=== PATIENT | male | born 1965 | race African-American/Black ===

== ENCOUNTER 2016-12-08 10:19 | Inpatient (IN) | payer OTHER ==
[2016-12-08 10:51] VITALS: BMI 29.5
--- NOTE | 2016-12-08 13:36 | HP ---
COWS - Scale Resting Pulse: 0= [place] 80 or Below Sweatin=Flushed/Facial Moisture Restless Observation: 1= Difficult to Sit Still Pupil Size: 0= Normal to Room Light Bone or Joint Aches: 2= Severe Diffuse Aches Runny Nose/ Eye Tearin= Runny Nose/Eyes GI Upset > 30mins: 2= Nausea/Diarrhea Tremor Observation: 2= Slight Tremor Visible Yawning Observation: 2= >3x During Session Anxiety or Irritability: 2=Irritable/Anxious Goose Flesh Skin: 3=Piloerection COWS Score: 18 Admission ROS S - HPI Chief Complaint: I am here to detox. Allergies/Adverse Reactions: Allergies Allergy/AdvReac Type Severity Reaction Status Date / Time No Known Allergies Allergy Verified 12/08/16 13:17 History of Present Illness: pt is a 50yr old male with a history of heroin dependence seeking detox for treatment. Exam Limitations: No Limitations - Ebola screening Have you traveled outside of the country in the last 21 days: No Have you had contact with anyone from an Ebola affected area: No Have you been sick,other than usual withdrawal symptoms: No Do you have a fever: No - Review of Systems Constitutional: Chills, Diaphoresis, Loss of Appetite, Night Sweats, Changes in sleep, Unintentional Wgt. Loss EENT: reports: Nose Congestion Respiratory: reports: No Symptoms reported, Cough Cardiac: reports: No Symptoms Reported GI: reports: Poor Appetite, Poor Fluid Intake : reports: No Symptoms Reported Musculoskeletal: reports: Back Pain, Muscle Pain Integumentary: reports: Flushing, Sweating Neuro: reports: Headache, Tingling, Tremors Endocrine: reports: Excessive Sweating, Flushing, Intolerance to Cold, Intolerance to Heat Hematology: reports: No Symptoms Reported Psychiatric: reports: Judgement Intact, Mood/Affect Appropiate, Orientated x3, Agitated, Anxious Other Systems: Reviewed and Negative Patient History - Patient Medical History Hx Anemia: No Hx Asthma: No Hx Chronic Obstructive Pulmonary Disease (COPD): No Hx Cancer: No Hx Cardiac Disorders: No Hx Congestive Heart Failure: No Hx Hypertension: Yes Hx Hypercholesterolemia: No Hx Pacemaker: No HX Cerebrovascular Accident: No Hx Seizures: No Hx Dementia: No Hx Diabetes: No Hx Gastrointestinal Disorders: No Hx Liver Disease: No Hx Genitourinary Disorders: No Hx Sexually Transmitted Disorders: No Hx Renal Disease (ESRD): No Hx Thyroid Disease: No Hx Human Immunodeficiency Virus (HIV): No (NEGATIVE HX) Hx Hepatitis C: No (negative) Hx Depression: No Hx Suicide Attempt: No (denies) Hx Bipolar Disorder: No Hx Schizophrenia: No - Patient Surgical History Past Surgical History: No Anesthesia Reaction: No - PPD History Previous Implant?: Yes Documented Results: Negative w/o proof Date: 10/17/14 PPD to be Administered?: Yes - Reproductive History Patient is a Female of Child Bearing Age (11 -55 yrs old): No - Smoking Cessation Smoking history: Current every day smoker Have you smoked in the past 12 months: Yes Aproximately how many cigarettes per day: 10 Hx Chewing Tobacco Use: No Initiated information on smoking cessation: Yes 'Breaking Loose' booklet given: 12/08/16 - Substance & Tx. History Hx Alcohol Use: No Hx Substance Use: Yes Substance Use Type: Cocaine, Heroin Hx Substance Use Treatment: Yes - Substances Abused Heroin Route: Inhalation Frequency: Daily Amount used: 6 BAGS Age of first use: 33 Date of Last Use: 12/07/16 Cocaine Route: Inhalation Frequency: Daily Amount used: 1-2 GRAMS Age of first use: 17 Date of Last Use: 12/07/16 PCP Route: Smoking Frequency: 1-3 times last 30 days Amount used: 2 BAGS Age of first use: 17 Date of Last Use: 12/01/16 Family Disease History - Family Disease History Family History: Denies Admission Physical Exam BHS - Vital Signs Vital Signs: Vital Signs - 24 hr 12/08/16 10:49 Temperature 97 F L Pulse Rate 80 Respiratory 20 Rate Blood Pressure 156/108 - Physical General Appearance: Yes: Appropriately Dressed, Moderate Distress, Tremorous, Irritable, Sweating, Anxious HEENTM: Yes: Normal Voice, Rhinorrhea Respiratory: Yes: Lungs Clear, Normal Breath Sounds, No Respiratory Distress Neck: Yes: No masses,lesions,Nodules Breast: Yes: Within Normal Limits Cardiology: Yes: Regular Rhythm, Regular Rate, S1, S2, Tachycardia Abdominal: Yes: Normal Bowel Sounds, Non Tender, Soft Genitourinary: Yes: Within Normal Limits Back: Yes: Normal Inspection Musculoskeletal: Yes: full range of Motion, Gait Steady Extremities: Yes: Normal Capillary Refill, Normal Inspection, Non-Tender, Tremors Neurological: Yes: Fully Oriented, Alert, Normal Response Integumentary: Yes: Normal Color, Diaphoresis Lymphatic: Yes: Within Normal Limits - Diagnostic (1) Opioid dependence with withdrawal Current Visit: Yes Status: Chronic (2) PCP dependence Current Visit: Yes Status: Chronic (3) Cocaine dependence Current Visit: Yes Status: Chronic Qualifiers: Substance use status: uncomplicated Qualified Code(s): F14.20 - Cocaine dependence, uncomplicated (4) HTN (hypertension) Current Visit: Yes Status: Chronic (5) Nicotine dependence Current Visit: Yes Status: Chronic Qualifiers: Nicotine product type: cigarettes Substance use status: uncomplicated Qualified Code(s): F17.210 - Nicotine dependence, cigarettes, uncomplicated Cleared for Admission S - Detox or Rehab [facility] Level of Care: Medically Managed Detox Regimen/Protocol: Methadone [facility] Breath Alcohol Content Breath Alcohol Content: 0 Urine Drug Screen - Results Drug Screen Negative: No Urine Drug Screen Results: SUSAN-Cocaine, OPI-Opiates, PCP-Phencyclidine, MDMA- Ecstasy
[2016-12-08] MEDS ORDERED: ACETAMINOPHEN 325 MG TABLET (FP) PO PRN (13:44)
[2016-12-08] MEDS ORDERED: MAGNESIUM CITRATE 300 ML BOTTLE PO PRN (13:44)
[2016-12-08] MEDS ORDERED: LOPERAMIDE HCL 2 MG CAPSULE PO PRN (13:44)
[2016-12-08] MEDS ORDERED: MAGNESIUM HYDROX 2400MG/30ML ORAL SUSPENSION 30 ML CUP PO PRN (13:44)
[2016-12-08] MEDS ORDERED: IBUPROFEN 400 MG TABLET (FP) PO PRN (13:44)
[2016-12-08] MEDS ORDERED: NICOTINE POLACRILEX 4 MG GUM BUC PRN (13:44)
[2016-12-08] MEDS ORDERED: guaiFENesin/D-METHORPHAN HB 10 ML UNIT-DOSE CUPS PO PRN (13:44)
[2016-12-08] MEDS ORDERED: P-EPHED 60MG/TRIPROLIDI 2.5MG TABLET PO PRN (13:44)
[2016-12-08] MEDS ORDERED: MENTHOL/PHENOL 1 EACH UD MM PRN (13:44)
[2016-12-08] MEDS ORDERED: cloNIDine HCL 0.1 MG TABLET PO ONE (14:38)
[2016-12-08] MEDS ORDERED: METHADONE HCL 10 MG TABLET (FOR DETOX USE ONLY) PO ONE ×2 (14:39→23:00)
[2016-12-08] MEDS: diazePAM 5 MG TABLET PO PRN (16:56)
[2016-12-08 20:16] LABS: URINE APPEARANCE CLEAR; URINE BILIRUBIN NEGATIVE (NEGATIVE); URINE BLOOD NEGATIVE (NEGATIVE); URINE COLOR YELLOW; URINE GLUCOSE (UA) NEGATIVE (NEGATIVE); URINE KETONE 1+ (NEGATIVE); URINE LEUK ESTERASE NEGATIVE (NEGATIVE); URINE NITRITE NEGATIVE (NEGATIVE); URINE PROTEIN NEGATIVE (NEGATIVE); URINE UROBILINOGEN NEGATIVE E.U./dl (0.2-1.0)
[2016-12-08] MEDS: THIAMINE HCL 100 MG TABLET (FP) PO SCH (22:07)
[2016-12-09] MEDS: diphenhydrAMINE HCL 50 MG CAPSULE PO PRN ×2 (00:40→22:24)
[2016-12-09] MEDS: diazePAM 5 MG TABLET PO PRN ×4 (05:49→21:44)
[2016-12-09] MEDS ORDERED: METHADONE HCL 10 MG TABLET (FOR DETOX USE ONLY) PO ONE (10:00)
[2016-12-09] MEDS: PRENATAL VITAMINS W/ FOLIC ACID TABLET (FP) PO SCH (10:42)
[2016-12-09] MEDS: NICOTINE 21 MG/24 HOURS TOPICAL PATCH TD SCH (10:43)
[2016-12-09 10:50] LABS: MCHC 32.9 g/dl (32.0-35.9); MEAN CELL VOLUME 91.1 fl (80-96); MEAN PLT VOLUME 8.7 fl (7.5-11.1); PLATELET COUNT 320 K/MM3 (134-434); RDW 13.6 % (11.9-15.9); WHITE BLOOD COUNT 8.7 K/mm3 (4.0-10.0)
[2016-12-09 10:56] LABS: ALBUMIN 4.4 g/dl (3.4-5.0); BILIRUBIN,TOTAL 0.5 mg/dL (0.2-1.0); CALCIUM 9.4 mg/dL (8.5-10.1); CREATININE 1.4 mg/dL (0.7-1.3); TOT PROT 7.4 g/dl (6.4-8.2)
--- NOTE | 2016-12-09 11:48 | PN ---
BHS COWS - Scale Resting Pulse: 1= [place] 81-100 Sweatin= Chills/Flushing Restless Observation: 1= Difficult to Sit Still Pupil Size: 1= Pupils >than Normal Bone or Joint Aches: 1= Mild Discomfort Runny Nose/ Eye Tearin= Nasal Congestion GI Upset > 30mins: 2= Nausea/Diarrhea Tremor Observation of Outstretched Hands: 2= Slight Tremor Visible Yawning Observation: 1= 1-2x During Session Anxiety or Irritability: 2=Irritable/Anxious Goose Flesh Skin: 3=Piloerection COWS Score: 16 BHS Progress Note (SOAP) Subjective: nausea, sweats, interrupted sleep, anxiety , tremor Objective: 12/09/16 11:47 Laboratory Tests 12/08/16 12/09/16 12/09/16 14:00 06:00 06:00 WBC 8.7 RBC 4.91 Hgb 14.7 D Hct 44.8 D MCV 91.1 MCHC 32.9 RDW 13.6 Plt Count 320 MPV 8.7 Sodium 140 Potassium 4.0 Chloride 104 Carbon Dioxide 27 Anion Gap 9 BUN 19 H Creatinine 1.4 H Creat Clearance w eGFR 53.86 Random Glucose 91 Calcium 9.4 Total Bilirubin 0.5 D AST 60 H D ALT 30 Alkaline Phosphatase 94 Total Protein 7.4 D Albumin 4.4 D Urine Color Yellow Urine Appearance Clear Urine pH 5.0 Ur Specific [place] 1.034 Urine Protein Negative Urine Glucose (UA) Negative Urine Ketones 1+ H Urine Blood Negative Urine Nitrite Negative Urine Bilirubin Negative Urine Urobilinogen Negative Ur Leukocyte Esterase Negative 12/09/16 11:47 Vital Signs - 24 hr 12/08/16 12/08/16 12/08/16 15:15 18:00 22:27 Temperature 97.7 F 97.9 F 96.8 F L Pulse Rate 91 H 83 87 Respiratory 18 16 18 Rate Blood Pressure 155/104 123/82 136/88 12/09/16 12/09/16 12/09/16 00:32 03:30 06:40 Temperature 96.7 F L Pulse Rate 80 Respiratory 18 18 18 Rate Blood Pressure 124/80 12/09/16 09:36 Temperature 97.1 F L Pulse Rate 85 Respiratory 20 Rate Blood Pressure 130/88 Assessment: 12/09/16 11:47 withdrawal sx Plan: cont deto
--- NOTE | 2016-12-09 19:15 | PN ---
BHS Progress Note Note: bp 174/93 amlodipine 5 mg x1 repeat bp in 2 hours arount 930 pm continue detox
[2016-12-09] MEDS: amLODIPine BESYLATE 5 MG TABLET (FP) PO SCH (19:27)
[2016-12-09] MEDS: hydrOXYzine PAMOATE 50 MG CAPSULE (FP) PO PRN (19:27)
--- NOTE | 2016-12-09 19:38 | PN ---
S Progress Note Note: received nurse call patient wants avmaluo soap
--- NOTE | 2016-12-09 19:38 | PN ---
BHS Progress Note Note: received nurse call patient wants to wear own shoes
--- NOTE | 2016-12-09 21:05 | PN ---
BHS Progress Note Note: received nurse call bp 149/100 continue detox
[2016-12-09] MEDS: THIAMINE HCL 100 MG TABLET (FP) PO SCH (23:04)
[2016-12-09] MEDS ORDERED: COLLOIDAL OATMEAL 1 BAR EACH TP PRN ×2 (23:11→23:12)
--- NOTE | 2016-12-09 23:23 | PN ---
BHS Progress Note Note: received nurse call bp 145/96 continue detox
[2016-12-10] MEDS: diphenhydrAMINE HCL 50 MG CAPSULE PO PRN ×2 (01:07→22:13)
[2016-12-10] MEDS: diazePAM 5 MG TABLET PO PRN ×4 (05:28→20:09)
[2016-12-10] MEDS ORDERED: METHADONE HCL 5 MG TABLET (FOR DETOX USE ONLY) PO ONE (10:00)
[2016-12-10] MEDS: PRENATAL VITAMINS W/ FOLIC ACID TABLET (FP) PO SCH (10:39)
[2016-12-10] MEDS: amLODIPine BESYLATE 5 MG TABLET (FP) PO SCH (10:39)
[2016-12-10] MEDS: NICOTINE 21 MG/24 HOURS TOPICAL PATCH TD SCH (10:39)
--- NOTE | 2016-12-10 13:11 | PN ---
S COWS - Scale Resting Pulse: 1= [place] 81-100 Sweatin= Chills/Flushing Restless Observation: 1= Difficult to Sit Still Pupil Size: 1= Pupils >than Normal Bone or Joint Aches: 1= Mild Discomfort Runny Nose/ Eye Tearin= Nasal Congestion GI Upset > 30mins: 2= Nausea/Diarrhea Tremor Observation of Outstretched Hands: 2= Slight Tremor Visible Yawning Observation: 1= 1-2x During Session Anxiety or Irritability: 2=Irritable/Anxious Goose Flesh Skin: 3=Piloerection COWS Score: 16 S Progress Note (SOAP) Subjective: nausea, sweats, interrupted sleep, anxiety, tremor Objective: 12/10/16 13:09 Vital Signs - 24 hr 12/09/16 12/09/16 12/09/16 14:13 17:33 22:48 Temperature 96.0 F L 98.2 F 97.9 F Pulse Rate 90 86 84 Respiratory 20 20 20 Rate Blood Pressure 137/93 157/92 145/96 12/10/16 12/10/16 12/10/16 00:43 03:48 06:39 Temperature 97.8 F Pulse Rate 92 H Respiratory 18 18 18 Rate Blood Pressure 149/91 12/10/16 10:20 Temperature 98.2 F Pulse Rate 87 Respiratory 20 Rate Blood Pressure 151/99 Laboratory Tests 12/08/16 12/09/16 12/09/16 14:00 06:00 06:00 WBC 8.7 RBC 4.91 Hgb 14.7 D Hct 44.8 D MCV 91.1 MCHC 32.9 RDW 13.6 Plt Count 320 MPV 8.7 Sodium 140 Potassium 4.0 Chloride 104 Carbon Dioxide 27 Anion Gap 9 BUN 19 H Creatinine 1.4 H Creat Clearance w eGFR 53.86 Random Glucose 91 Calcium 9.4 Total Bilirubin 0.5 D AST 60 H D ALT 30 Alkaline Phosphatase 94 Total Protein 7.4 D Albumin 4.4 D Urine Color Yellow Urine Appearance Clear Urine pH 5.0 Ur Specific [place] 1.034 Urine Protein Negative Urine Glucose (UA) Negative Urine Ketones 1+ H Urine Blood Negative Urine Nitrite Negative Urine Bilirubin Negative Urine Urobilinogen Negative Ur Leukocyte Esterase Negative RPR Titer 12/09/16 06:00 WBC RBC Hgb Hct MCV MCHC RDW Plt Count MPV Sodium Potassium Chloride Carbon Dioxide Anion Gap BUN Creatinine Creat Clearance w eGFR Random Glucose Calcium Total Bilirubin AST ALT Alkaline Phosphatase Total Protein Albumin Urine Color Urine Appearance Urine pH Ur Specific [place] Urine Protein Urine Glucose (UA) Urine Ketones Urine Blood Urine Nitrite Urine Bilirubin Urine Urobilinogen Ur Leukocyte Esterase RPR Titer Nonreactive Assessment: 12/10/16 13:10 withdrawal sx Plan: cont detox
--- NOTE | 2016-12-10 14:29 | EKG ---
Test Reason : Blood Pressure : / mmHG Vent. Rate : 085 BPM Atrial Rate : 085 BPM P-R Int : 164 ms QRS Dur : 086 ms QT Int : 304 ms P-R-T Axes : 080 073 046 degrees QTc Int : 361 ms NORMAL SINUS RHYTHM NONSPECIFIC T WAVE ABNORMALITY ABNORMAL ECG NO PREVIOUS ECGS AVAILABLE Confirmed by FAITH MONSALVE, NETTIE ([id number]) on 12/10/2016 2:29:12 PM Referred By: Confirmed By:NETTIE CUEVAS MD
[2016-12-10] MEDS: hydrOXYzine PAMOATE 50 MG CAPSULE (FP) PO PRN (18:51)
[2016-12-10] MEDS: cloNIDine HCL 0.1 MG TABLET PO SCH (22:13)
[2016-12-10] MEDS: THIAMINE HCL 100 MG TABLET (FP) PO SCH (22:13)
[2016-12-11] MEDS: diazePAM 5 MG TABLET PO PRN ×2 (05:23→10:42)
--- NOTE | 2016-12-11 09:06 | PN ---
BHS Progress Note (SOAP) Subjective: c/o cold sore left side of mouth crease painful, nause, sweats, interrupted sleep, anxiety, trmeors Objective: 12/11/16 09:03 Vital Signs - 8 hr 12/11/16 12/11/16 03:30 06:36 Temperature 97.7 F Pulse Rate 76 Respiratory 18 18 Rate Blood Pressure 137/85 Laboratory Tests 12/08/16 12/09/16 12/09/16 14:00 06:00 06:00 WBC 8.7 RBC 4.91 Hgb 14.7 D Hct 44.8 D MCV 91.1 MCHC 32.9 RDW 13.6 Plt Count 320 MPV 8.7 Sodium 140 Potassium 4.0 Chloride 104 Carbon Dioxide 27 Anion Gap 9 BUN 19 H Creatinine 1.4 H Creat Clearance w eGFR 53.86 Random Glucose 91 Calcium 9.4 Total Bilirubin 0.5 D AST 60 H D ALT 30 Alkaline Phosphatase 94 Total Protein 7.4 D Albumin 4.4 D Urine Color Yellow Urine Appearance Clear Urine pH 5.0 Ur Specific [place] 1.034 Urine Protein Negative Urine Glucose (UA) Negative Urine Ketones 1+ H Urine Blood Negative Urine Nitrite Negative Urine Bilirubin Negative Urine Urobilinogen Negative Ur Leukocyte Esterase Negative RPR Titer 12/09/16 06:00 WBC RBC Hgb Hct MCV MCHC RDW Plt Count MPV Sodium Potassium Chloride Carbon Dioxide Anion Gap BUN Creatinine Creat Clearance w eGFR Random Glucose Calcium Total Bilirubin AST ALT Alkaline Phosphatase Total Protein Albumin Urine Color Urine Appearance Urine pH Ur Specific [place] Urine Protein Urine Glucose (UA) Urine Ketones Urine Blood Urine Nitrite Urine Bilirubin Urine Urobilinogen Ur Leukocyte Esterase RPR Titer Nonreactive elevated bun and creatinine Assessment: 12/11/16 09:03 withdrawal sx, CHANDAN 2/2 dehydrtion and substance use, cold sore herpes Plan: cont detox, topical lidocaine, encourage fluids, ambulation
[2016-12-11] MEDS ORDERED: METHADONE HCL 5 MG TABLET (FOR DETOX USE ONLY) PO ONE (10:00)
[2016-12-11] MEDS: amLODIPine BESYLATE 5 MG TABLET (FP) PO SCH (10:40)
[2016-12-11] MEDS: cloNIDine HCL 0.1 MG TABLET PO SCH ×2 (10:40→22:10)
[2016-12-11] MEDS: PRENATAL VITAMINS W/ FOLIC ACID TABLET (FP) PO SCH (10:40)
[2016-12-11] MEDS: NICOTINE 21 MG/24 HOURS TOPICAL PATCH TD SCH (11:07)
[2016-12-11] MEDS: LIDOCAINE HCL 5% TOP OINTMENT 50 GM TUBE TP SCH ×2 (13:55→23:17)
[2016-12-11] MEDS: hydrOXYzine PAMOATE 50 MG CAPSULE (FP) PO PRN ×2 (14:13→18:26)
[2016-12-11] MEDS: VITAMINS A AND D TOPICAL OINTMENT 60 GM TUBE TP SCH ×2 (17:15→23:18)
[2016-12-11] MEDS: MAG HYDROX/AL HYDROX/SIMETH 30 ML UNIT-DOSE CUP PO PRN (21:06)
[2016-12-11] MEDS: diphenhydrAMINE HCL 50 MG CAPSULE PO PRN (22:10)
[2016-12-11] MEDS: THIAMINE HCL 100 MG TABLET (FP) PO SCH (22:10)
[2016-12-12] MEDS: hydrOXYzine PAMOATE 50 MG CAPSULE (FP) PO PRN ×3 (03:01→17:17)
[2016-12-12] MEDS: VITAMINS A AND D TOPICAL OINTMENT 60 GM TUBE TP SCH ×4 (07:33→23:00)
[2016-12-12] MEDS ORDERED: METHADONE HCL 10 MG TABLET (FOR DETOX USE ONLY) PO ONE (10:00)
[2016-12-12] MEDS: cloNIDine HCL 0.1 MG TABLET PO SCH ×2 (10:34→22:32)
[2016-12-12] MEDS: amLODIPine BESYLATE 5 MG TABLET (FP) PO SCH (10:34)
[2016-12-12] MEDS: PRENATAL VITAMINS W/ FOLIC ACID TABLET (FP) PO SCH (10:34)
[2016-12-12] MEDS: NICOTINE 21 MG/24 HOURS TOPICAL PATCH TD SCH (10:35)
[2016-12-12] MEDS: LIDOCAINE HCL 5% TOP OINTMENT 50 GM TUBE TP SCH ×2 (10:35→22:48)
--- NOTE | 2016-12-12 12:12 | PN ---
BHS Progress Note (SOAP) Subjective: SWEATING,INTERRUPTED SLEEP,RESTLESS Objective: 12/12/16 12:11 Vital Signs - 8 hr 12/12/16 12/12/16 06:20 10:49 Temperature 98.7 F 96.1 F L Pulse Rate 81 80 Respiratory 18 18 Rate Blood Pressure 127/85 131/85 Laboratory Last Values WBC 8.7 K/mm3 (4.0-10.0) 12/09/16 06:00 RBC 4.91 M/mm3 (4.00-5.60) 12/09/16 06:00 Hgb 14.7 GM/dL (11.7-16.9) D 12/09/16 06:00 Hct 44.8 % (35.4-49) D 12/09/16 06:00 MCV 91.1 fl (80-96) 12/09/16 06:00 MCHC 32.9 g/dl (32.0-35.9) 12/09/16 06:00 RDW 13.6 % (11.9-15.9) 12/09/16 06:00 Plt Count 320 K/MM3 (134-434) 12/09/16 06:00 MPV 8.7 fl (7.5-11.1) 12/09/16 06:00 Sodium 140 mmol/L (136-145) 12/09/16 06:00 Potassium 4.0 mmol/L (3.5-5.1) 12/09/16 06:00 Chloride 104 mmol/L (98-107) 12/09/16 06:00 Carbon Dioxide 27 mmol/L (21-32) 12/09/16 06:00 Anion Gap 9 (8-16) 12/09/16 06:00 BUN 19 mg/dL (7-18) H 12/09/16 06:00 Creatinine 1.4 mg/dL (0.7-1.3) H 12/09/16 06:00 Creat Clearance w eGFR 53.86 (>60) 12/09/16 06:00 Random Glucose 91 mg/dL (74-106) 12/09/16 06:00 Calcium 9.4 mg/dL (8.5-10.1) 12/09/16 06:00 Total Bilirubin 0.5 mg/dL (0.2-1.0) D 12/09/16 06:00 AST 60 U/L (15-37) H D 12/09/16 06:00 ALT 30 U/L (12-78) 12/09/16 06:00 Alkaline Phosphatase 94 U/L (45-117) 12/09/16 06:00 Total Protein 7.4 g/dl (6.4-8.2) D 12/09/16 06:00 Albumin 4.4 g/dl (3.4-5.0) D 12/09/16 06:00 Urine Color Yellow 12/08/16 14:00 Urine Appearance Clear 12/08/16 14:00 Urine pH 5.0 (5.0-8.0) 12/08/16 14:00 Ur Specific [place] 1.034 (1.001-1.035) 12/08/16 14:00 Urine Protein Negative (NEGATIVE) 12/08/16 14:00 Urine Glucose (UA) Negative (NEGATIVE) 12/08/16 14:00 Urine Ketones 1+ (NEGATIVE) H 12/08/16 14:00 Urine Blood Negative (NEGATIVE) 12/08/16 14:00 Urine Nitrite Negative (NEGATIVE) 12/08/16 14:00 Urine Bilirubin Negative (NEGATIVE) 12/08/16 14:00 Urine Urobilinogen Negative E.U./dl (0.2-1.0) 12/08/16 14:00 Ur Leukocyte Esterase Negative (NEGATIVE) 12/08/16 14:00 RPR Titer Nonreactive (NONREACTIVE) 12/09/16 06:00 LABS NOTED Assessment: 12/12/16 12:11 WITHDRAWAL SX. Plan: CONTINUE DETOX
[2016-12-12] MEDS: MAG HYDROX/AL HYDROX/SIMETH 30 ML UNIT-DOSE CUP PO PRN (14:38)
[2016-12-12] MEDS ORDERED: PANTOPRAZOLE 40 MG TABLET (FP) PO SCH (18:00)
[2016-12-12] MEDS: THIAMINE HCL 100 MG TABLET (FP) PO SCH (22:32)
[2016-12-12] MEDS: diphenhydrAMINE HCL 50 MG CAPSULE PO PRN (22:32)
[2016-12-13] MEDS ORDERED: METHADONE HCL 5 MG TABLET (FOR DETOX USE ONLY) PO ONE (06:00)
[2016-12-13 06:25] VITALS: BP 144/88; PULSE 81; TEMP 98.7
--- NOTE | 2016-12-13 10:42 | DS ---
[facility] Detox Discharge Summary Admission Date: 12/08/16 Discharge Date: 12/13/16 - History Present History: Cocaine Dependence, Opioid Dependence Pertinent Past History: HTN - Physical Exam Results Vital Signs: Vital Signs Temperature 98.7 F 12/13/16 06:25 Pulse Rate 81 12/13/16 06:25 Respiratory Rate 18 12/13/16 06:25 Blood Pressure 144/88 12/13/16 06:25 O2 Sat by Pulse Oximetry (%) Pertinent Admission Physical Exam Findings: Withdrawal symptoms Laboratory Tests 12/08/16 12/09/16 12/09/16 14:00 06:00 06:00 WBC 8.7 RBC 4.91 Hgb 14.7 D Hct 44.8 D MCV 91.1 MCHC 32.9 RDW 13.6 Plt Count 320 MPV 8.7 Sodium 140 Potassium 4.0 Chloride 104 Carbon Dioxide 27 Anion Gap 9 BUN 19 H Creatinine 1.4 H Creat Clearance w eGFR 53.86 Random Glucose 91 Calcium 9.4 Total Bilirubin 0.5 D AST 60 H D ALT 30 Alkaline Phosphatase 94 Total Protein 7.4 D Albumin 4.4 D Urine Color Yellow Urine Appearance Clear Urine pH 5.0 Ur Specific [place] 1.034 Urine Protein Negative Urine Glucose (UA) Negative Urine Ketones 1+ H Urine Blood Negative Urine Nitrite Negative Urine Bilirubin Negative Urine Urobilinogen Negative Ur Leukocyte Esterase Negative RPR Titer 12/09/16 06:00 WBC RBC Hgb Hct MCV MCHC RDW Plt Count MPV Sodium Potassium Chloride Carbon Dioxide Anion Gap BUN Creatinine Creat Clearance w eGFR Random Glucose Calcium Total Bilirubin AST ALT Alkaline Phosphatase Total Protein Albumin Urine Color Urine Appearance Urine pH Ur Specific [place] Urine Protein Urine Glucose (UA) Urine Ketones Urine Blood Urine Nitrite Urine Bilirubin Urine Urobilinogen Ur Leukocyte Esterase RPR Titer Nonreactive Labs noted - Treatment Hospital Course: Detox Protocol Followed, Detoxed Safely, Responded well, Discharged Condition Good - Medication Discharge Medications: Ambulatory Orders NK [No Known Home Medication] 12/09/16 - Diagnosis (1) HTN (hypertension) Status: Chronic Qualifiers: Hypertension type: essential hypertension Qualified Code(s): I10 - Essential (primary) hypertension (2) Cocaine dependence Status: Chronic Qualifiers: Substance use status: uncomplicated Qualified Code(s): F14.20 - Cocaine dependence, uncomplicated (3) Nicotine dependence Status: Chronic Qualifiers: Nicotine product type: cigarettes Substance use status: uncomplicated Qualified Code(s): F17.210 - Nicotine dependence, cigarettes, uncomplicated (4) Opioid dependence with withdrawal Status: Acute - AMA Did Patient Leave Against Medical Advice: No
== END 2016-12-13 08:31 | disposition home or self-care (01) | DRG 773 ==
LOC: YASAS 10:19 → Y3N 14:36
PROVIDERS: ADMIT Internal Medicine; ATTEND Internal Medicine
PROC: HZ2ZZZZ Detoxification Services for Substance Abuse Treatment (ICD-10-PCS; principal; 2016-12-08)
DX: F11.23 Opioid dependence with withdrawal (principal); F14.20 Cocaine dependence, uncomplicated; F16.20 Hallucinogen dependence, uncomplicated; F17.210 Nicotine dependence, cigarettes, uncomplicated; I10 Essential (primary) hypertension; E86.0 Dehydration; R79.89 Other specified abnormal findings of blood chemistry; R00.0 Tachycardia, unspecified; B00.1 Herpesviral vesicular dermatitis
CPT/HCPCS: 36415; 80053; 81003; 85027; 86593; 93005; 93010

== ENCOUNTER 2017-01-21 12:45 | Inpatient (IN) | payer OTHER ==
[2017-01-21 15:02] VITALS: BMI 27.7
--- NOTE | 2017-01-21 16:52 | HP ---
COWS - Scale Resting Pulse: 1= [place] 81-100 Sweatin= Chills/Flushing Restless Observation: 1= Difficult to Sit Still Pupil Size: 1= Pupils >than Normal Bone or Joint Aches: 2= Severe Diffuse Aches Runny Nose/ Eye Tearin= Nasal Congestion GI Upset > 30mins: 2= Nausea/Diarrhea Tremor Observation: 1= Tremor [place], Not Seen Yawning Observation: 0= None Anxiety or Irritability: 2=Irritable/Anxious Goose Flesh Skin: 3=Piloerection COWS Score: 15 CIWA Score - CIWA Score Nausea/Vomitin-Mild Nausea/No Vomiting Muscle Tremors: 4-Moderate,w/Arms Extend Anxiety: 4-Mod. Anxious/Guarded Agitation: 4-Moderately Restless Paroxysmal Sweats: 1-Minimal Palms Moist Orientation: 1-Uncertain about Date Tacttile Disturbances: 0-None Auditory Disturbances: 0-None Visual Disturbances: 0-None Headache: 3-Moderate CIWA-Ar Total Score: 18 Admission ROS S - HPI Chief Complaint: withdrawal sx Allergies/Adverse Reactions: Allergies Allergy/AdvReac Type Severity Reaction Status Date / Time No Known Allergies Allergy Verified 01/21/17 16:49 History of Present Illness: 51 years old male with long history of alcohol, heroin, nicotine dependence has hypertension - none compliance with medication, do not know the name of the medication, denies mental illness is admitted to detox Exam Limitations: No Limitations - Ebola screening Have you traveled outside of the country in the last 21 days: No Have you had contact with anyone from an Ebola affected area: No Have you been sick,other than usual withdrawal symptoms: No Do you have a fever: No - Review of Systems Constitutional: Chills, Loss of Appetite, Changes in sleep, Unintentional Wgt. Loss, Unexplained wgt Loss EENT: reports: No Symptoms Reported Respiratory: reports: No Symptoms reported Cardiac: reports: No Symptoms Reported GI: reports: Diarrhea, Nausea, Poor Appetite, Poor Fluid Intake, Abdominal cramping : reports: No Symptoms Reported Musculoskeletal: reports: Back Pain, Joint Pain, Muscle Pain, Neck Pain Integumentary: reports: No Symptoms Reported Neuro: reports: Tremors Endocrine: reports: No Symptoms Reported Hematology: reports: No Symptoms Reported Psychiatric: reports: Judgement Intact, Mood/Affect Appropiate Other Systems: Reviewed and Negative Patient History - Patient Medical History Hx Anemia: No Hx Asthma: No Hx Chronic Obstructive Pulmonary Disease (COPD): No Hx Cancer: No Hx Cardiac Disorders: No Hx Congestive Heart Failure: No Hx Hypertension: Yes Hx Hypercholesterolemia: No Hx Pacemaker: No HX Cerebrovascular Accident: No Hx Seizures: No Hx Dementia: No Hx Diabetes: No Hx Gastrointestinal Disorders: No Hx Liver Disease: No Hx Genitourinary Disorders: No Hx Sexually Transmitted Disorders: No Hx Renal Disease (ESRD): No Hx Thyroid Disease: No Hx Human Immunodeficiency Virus (HIV): No (NEGATIVE HX) Hx Hepatitis C: No (negative) Hx Depression: No Hx Suicide Attempt: No (denies) Hx Bipolar Disorder: No Hx Schizophrenia: No - Patient Surgical History Past Surgical History: No Anesthesia Reaction: No - PPD History Previous Implant?: Yes Documented Results: Negative w/proof Implanted On Prior [facility] Admission?: Yes Date: 12/10/16 PPD to be Administered?: No - Smoking Cessation Smoking history: Current every day smoker Have you smoked in the past 12 months: Yes Aproximately how many cigarettes per day: 10 Cigars Per Day: 0 Hx Chewing Tobacco Use: No Initiated information on smoking cessation: Yes 'Breaking Loose' booklet given: 01/21/17 - Substance & Tx. History Hx Alcohol Use: Yes Hx Substance Use: Yes Substance Use Type: Alcohol, Cocaine, Heroin, Marijuana Hx Substance Use Treatment: Yes Family Disease History - Family Disease History Family Disease History: Heart Disease: Mother (), CA: Father () Admission Physical Exam BHS - Vital Signs Vital Signs: Vital Signs - 24 hr 01/21/17 15:01 Temperature 97.7 F Pulse Rate 83 Respiratory 18 Rate Blood Pressure 161/85 - Physical General Appearance: Yes: Appropriately Dressed, Moderate Distress, Thin, Tremorous, Irritable, Sweating, Anxious HEENTM: Yes: Hearing grossly Normal, Normal ENT Inspection, Normocephalic, Normal Voice Respiratory: Yes: Chest Non-Tender, No Respiratory Distress, No Accessory Muscle Use, Hyperresonant, Inspiration (right lower lob) Neck: Yes: Supple, Trachea in good position Breast: Yes: Breasts Symetrical Cardiology: Yes: Regular Rhythm, Regular Rate, S1, S2 Abdominal: Yes: Non Tender, Soft, Increased Bowel Sounds Genitourinary: Yes: Within Normal Limits Back: Yes: Normal Inspection Musculoskeletal: Yes: full range of Motion, Gait Steady, Back pain, Muscle Pain Extremities: Yes: Normal Range of Motion, Non-Tender, Tremors Neurological: Yes: Alert, Motor Strength 5/5, Normal Mood/Affect, Normal Response Integumentary: Yes: Warm Lymphatic: Yes: Within Normal Limits - Diagnostic (1) Opioid dependence with withdrawal Current Visit: Yes Status: Acute (2) HTN (hypertension) Current Visit: Yes Status: Acute Qualifiers: Hypertension type: essential hypertension Qualified Code(s): I10 - Essential (primary) hypertension Comment: begin amlodipine 5 mg now and daily clonidine 0.1 mg prn q6h (3) Nicotine dependence Current Visit: Yes Status: Acute Qualifiers: Nicotine product type: cigarettes Substance use status: in withdrawal Qualified Code(s): F17.213 - Nicotine dependence, cigarettes, with withdrawal (4) Cocaine dependence, uncomplicated Current Visit: Yes Status: Chronic (5) Cannabis dependence, uncomplicated Current Visit: Yes Status: Chronic Cleared for Admission S - Detox or Rehab [facility] Level of Care: Medically Managed Detox Regimen/Protocol: Methadone/Librium S Breath Alcohol Content Breath Alcohol Content: 0 Vital Signs - Vital Signs Vital Signs Refused: No Temperature: 97.7 F Temperature Source: Oral Pulse Rate: 83 Respiratory Rate: 18 Blood Pressure: 161/85 BP Location: Left Arm Blood Pressure Position: Sitting - Height Height: 5 ft 9 in - Weight Weight: 188 lb Weight Measurement Method: Standing Scale Body Mass Index (BMI): 27.7 - Bowel Function Bowel Movement: Yes Urine Drug Screen - Control Is Test Valid: Yes - Results Drug Screen Negative: No Urine Drug Screen Results: THC-Marijuana, SUSAN-Cocaine, OPI-Opiates
[2017-01-21] MEDS ORDERED: NICOTINE POLACRILEX 2 MG GUM BC PRN (17:01)
[2017-01-21] MEDS ORDERED: MENTHOL/PHENOL 1 EACH UD MM PRN (17:01)
[2017-01-21] MEDS ORDERED: ACETAMINOPHEN 325 MG TABLET (FP) PO PRN (17:01)
[2017-01-21] MEDS ORDERED: MAG HYDROX/AL HYDROX/SIMETH 30 ML UNIT-DOSE CUP PO PRN (17:01)
[2017-01-21] MEDS ORDERED: IBUPROFEN 400 MG TABLET (FP) PO PRN (17:01)
[2017-01-21] MEDS ORDERED: guaiFENesin/D-METHORPHAN HB 10 ML UNIT-DOSE CUPS PO PRN (17:01)
[2017-01-21] MEDS ORDERED: MAGNESIUM HYDROX 2400MG/30ML ORAL SUSPENSION 30 ML CUP PO PRN (17:01)
[2017-01-21] MEDS ORDERED: P-EPHED 60MG/TRIPROLIDI 2.5MG TABLET PO PRN (17:01)
[2017-01-21] MEDS ORDERED: LOPERAMIDE HCL 2 MG CAPSULE PO PRN (17:01)
[2017-01-21] MEDS ORDERED: chlordiazePOXIDE HCL 25 MG CAPSULE PO PRN (17:01)
[2017-01-21] MEDS ORDERED: MAGNESIUM CITRATE 300 ML BOTTLE PO PRN (17:01)
[2017-01-21] MEDS ORDERED: METHADONE HCL 10 MG TABLET (FOR DETOX USE ONLY) PO ONE ×2 (18:15→23:00)
[2017-01-21] MEDS ORDERED: chlordiazePOXIDE HCL 25 MG CAPSULE PO ONE (18:15)
[2017-01-21] MEDS: amLODIPine BESYLATE 5 MG TABLET (FP) PO SCH (18:27)
[2017-01-21] MEDS: cloNIDine HCL 0.1 MG TABLET PO PRN (22:23)
[2017-01-21] MEDS: diphenhydrAMINE HCL 50 MG CAPSULE PO PRN (22:23)
[2017-01-21] MEDS: THIAMINE HCL 100 MG TABLET (FP) PO SCH (22:23)
[2017-01-21] MEDS: chlordiazePOXIDE HCL 25 MG CAPSULE PO SCH (22:24)
[2017-01-22 04:04] LABS: URINE APPEARANCE CLEAR; URINE BILIRUBIN NEGATIVE (NEGATIVE); URINE BLOOD NEGATIVE (NEGATIVE); URINE COLOR YELLOW; URINE GLUCOSE (UA) NEGATIVE (NEGATIVE); URINE KETONE NEGATIVE (NEGATIVE); URINE LEUK ESTERASE NEGATIVE (NEGATIVE); URINE NITRITE NEGATIVE (NEGATIVE); URINE PROTEIN NEGATIVE (NEGATIVE); URINE UROBILINOGEN NEGATIVE E.U./dl (0.2-1.0)
[2017-01-22] MEDS: chlordiazePOXIDE HCL 25 MG CAPSULE PO SCH ×4 (05:57→22:55)
[2017-01-22] MEDS ORDERED: METHADONE HCL 10 MG TABLET (FOR DETOX USE ONLY) PO SCH (10:00)
[2017-01-22] MEDS ORDERED: NICOTINE 14 MG/24 HOURS TOPICAL PATCH TD SCH (10:00)
[2017-01-22] MEDS ORDERED: PRENATAL VITAMINS W/ FOLIC ACID TABLET (FP) PO SCH (10:00)
[2017-01-22 10:04] LABS: MCH 29.7 pg (25.7-33.7); MCHC 32.7 g/dl (32.0-35.9); MEAN CELL VOLUME 90.9 fl (80-96); MEAN PLT VOLUME 8.4 fl (7.5-11.1); PLATELET COUNT 348 K/MM3 (134-434); RDW 13.6 % (11.9-15.9); WHITE BLOOD COUNT 8.7 K/mm3 (4.0-10.0)
[2017-01-22] MEDS: amLODIPine BESYLATE 5 MG TABLET (FP) PO SCH (10:15)
[2017-01-22 10:31] LABS: ALBUMIN 3.7 g/dl (3.4-5.0); BILIRUBIN,TOTAL 0.2 mg/dL (0.2-1.0); CREATININE 1.4 mg/dL (0.7-1.3); TOT PROT 6.6 g/dl (6.4-8.2)
--- NOTE | 2017-01-22 11:17 | PN ---
[facility] CIWA - CIWA Score Nausea/Vomitin Muscle Tremors: 3 Anxiety: 3 Agitation: 3 Paroxysmal Sweats: 2 Orientation: 0-Oriented Tacttile Disturbances: 1-Very Mild Itch/Numbness Auditory Disturbances: 1-Very Mild Visual Disturbances: 1-Very Mild Sensitivity Headache: 2-Mild ([id number]) CIWA-Ar Total Score: 19 S COWS - Scale Resting Pulse: 0= [place] 80 or Below Sweatin= Chills/Flushing Restless Observation: 3= Extraneous Movement Pupil Size: 1= Pupils >than Normal Bone or Joint Aches: 2= Severe Diffuse Aches Runny Nose/ Eye Tearin= Runny Nose/Eyes GI Upset > 30mins: 3= Vomiting/Diarrhea Tremor Observation of Outstretched Hands: 2= Slight Tremor Visible Yawning Observation: 1= 1-2x During Session Anxiety or Irritability: 2=Irritable/Anxious Goose Flesh Skin: 0=Smooth Skin COWS Score: 17 [facility] Progress Note (SOAP) Subjective: ALERT,IRRITABLE,ANXIOUS,INTERRUPTED SLEEP,TREMOR,PAIN IN THE BODY AND BACK Objective: 01/22/17 11:15 Vital Signs Temperature 97.9 F 01/22/17 10:00 Pulse Rate 72 01/22/17 10:00 Respiratory Rate 18 01/22/17 10:00 Blood Pressure 155/74 01/22/17 10:00 O2 Sat by Pulse Oximetry (%) EKG NSR,NON SPECIFIC T NO CHEST PAIN,NO SOB,NO DIZZINESS Laboratory Last Values WBC 8.7 K/mm3 (4.0-10.0) 01/22/17 06:00 RBC 4.22 M/mm3 (4.00-5.60) 01/22/17 06:00 Hgb 12.5 GM/dL (11.7-16.9) D 01/22/17 06:00 Hct 38.3 % (35.4-49) 01/22/17 06:00 MCV 90.9 fl (80-96) 01/22/17 06:00 MCHC 32.7 g/dl (32.0-35.9) 01/22/17 06:00 RDW 13.6 % (11.9-15.9) 01/22/17 06:00 Plt Count 348 K/MM3 (134-434) 01/22/17 06:00 MPV 8.4 fl (7.5-11.1) 01/22/17 06:00 Sodium 143 mmol/L (136-145) 01/22/17 06:00 Potassium 4.4 mmol/L (3.5-5.1) 01/22/17 06:00 Chloride 108 mmol/L (98-107) H 01/22/17 06:00 Carbon Dioxide 27 mmol/L (21-32) 01/22/17 06:00 Anion Gap 8 (8-16) 01/22/17 06:00 BUN 16 mg/dL (7-18) 01/22/17 06:00 Creatinine 1.4 mg/dL (0.7-1.3) H 01/22/17 06:00 Creat Clearance w eGFR 53.64 (>60) 01/22/17 06:00 Random Glucose 100 mg/dL (74-106) 01/22/17 06:00 Calcium 9.0 mg/dL (8.5-10.1) 01/22/17 06:00 Total Bilirubin 0.2 mg/dL (0.2-1.0) D 01/22/17 06:00 AST 28 U/L (15-37) D 01/22/17 06:00 ALT 29 U/L (12-78) 01/22/17 06:00 Alkaline Phosphatase 97 U/L (45-117) 01/22/17 06:00 Total Protein 6.6 g/dl (6.4-8.2) 01/22/17 06:00 Albumin 3.7 g/dl (3.4-5.0) 01/22/17 06:00 Urine Color Yellow 01/21/17 21:30 Urine Appearance Clear 01/21/17 21:30 Urine pH 5.0 (5.0-8.0) 01/21/17 21:30 Ur Specific [place] 1.031 (1.001-1.035) 01/21/17 21:30 Urine Protein Negative (NEGATIVE) 01/21/17 21:30 Urine Glucose (UA) Negative (NEGATIVE) 01/21/17 21:30 Urine Ketones Negative (NEGATIVE) 01/21/17 21:30 Urine Blood Negative (NEGATIVE) 01/21/17 21:30 Urine Nitrite Negative (NEGATIVE) 01/21/17 21:30 Urine Bilirubin Negative (NEGATIVE) 01/21/17 21:30 Urine Urobilinogen Negative E.U./dl (0.2-1.0) 01/21/17 21:30 Ur Leukocyte Esterase Negative (NEGATIVE) 01/21/17 21:30 LABS PENDING Assessment: 01/22/17 11:16 WITHDRAWAL SYMPTOM Plan: CONTINUE DETOX
--- NOTE | 2017-01-22 13:05 | EKG ---
Test Reason : Blood Pressure : / mmHG Vent. Rate : 073 BPM Atrial Rate : 073 BPM P-R Int : 180 ms QRS Dur : 108 ms QT Int : 376 ms P-R-T Axes : 074 077 -17 degrees QTc Int : 414 ms NORMAL SINUS RHYTHM NONSPECIFIC ST AND T WAVE ABNORMALITY ABNORMAL ECG Confirmed by RAVINDRA DICKEY MD ([id number]) on 01/22/2017 1:05:17 PM Referred By: Confirmed By:RAVINDRA DICKEY MD
[2017-01-22] MEDS: cloNIDine HCL 0.1 MG TABLET PO PRN (22:55)
[2017-01-22] MEDS: THIAMINE HCL 100 MG TABLET (FP) PO SCH (22:55)
[2017-01-22] MEDS: diphenhydrAMINE HCL 50 MG CAPSULE PO PRN (22:55)
[2017-01-23] MEDS: chlordiazePOXIDE HCL 25 MG CAPSULE PO SCH (06:19)
[2017-01-23] MEDS ORDERED: METHADONE HCL 5 MG TABLET (FOR DETOX USE ONLY) PO SCH (10:00)
--- NOTE | 2017-01-23 10:47 | DS ---
[facility] Detox Discharge Summary Admission Date: 01/21/17 Discharge Date: 01/23/17 - History Present History: Cannabis Dependence, Cocaine Dependence, Opioid Dependence, Pcp Dependence Pertinent Past History: HTN - Physical Exam Results Vital Signs: Vital Signs Temperature 98.2 F 01/23/17 06:00 Pulse Rate 76 01/23/17 06:00 Respiratory Rate 18 01/23/17 06:00 Blood Pressure 126/70 01/23/17 06:00 O2 Sat by Pulse Oximetry (%) Pertinent Admission Physical Exam Findings: Withdrawal sx. Laboratory Last Values WBC 8.7 K/mm3 (4.0-10.0) 01/22/17 06:00 RBC 4.22 M/mm3 (4.00-5.60) 01/22/17 06:00 Hgb 12.5 GM/dL (11.7-16.9) D 01/22/17 06:00 Hct 38.3 % (35.4-49) 01/22/17 06:00 MCV 90.9 fl (80-96) 01/22/17 06:00 MCHC 32.7 g/dl (32.0-35.9) 01/22/17 06:00 RDW 13.6 % (11.9-15.9) 01/22/17 06:00 Plt Count 348 K/MM3 (134-434) 01/22/17 06:00 MPV 8.4 fl (7.5-11.1) 01/22/17 06:00 Sodium 143 mmol/L (136-145) 01/22/17 06:00 Potassium 4.4 mmol/L (3.5-5.1) 01/22/17 06:00 Chloride 108 mmol/L (98-107) H 01/22/17 06:00 Carbon Dioxide 27 mmol/L (21-32) 01/22/17 06:00 Anion Gap 8 (8-16) 01/22/17 06:00 BUN 16 mg/dL (7-18) 01/22/17 06:00 Creatinine 1.4 mg/dL (0.7-1.3) H 01/22/17 06:00 Creat Clearance w eGFR 53.64 (>60) 01/22/17 06:00 Random Glucose 100 mg/dL (74-106) 01/22/17 06:00 Calcium 9.0 mg/dL (8.5-10.1) 01/22/17 06:00 Total Bilirubin 0.2 mg/dL (0.2-1.0) D 01/22/17 06:00 AST 28 U/L (15-37) D 01/22/17 06:00 ALT 29 U/L (12-78) 01/22/17 06:00 Alkaline Phosphatase 97 U/L (45-117) 01/22/17 06:00 Total Protein 6.6 g/dl (6.4-8.2) 01/22/17 06:00 Albumin 3.7 g/dl (3.4-5.0) 01/22/17 06:00 Urine Color Yellow 01/21/17 21:30 Urine Appearance Clear 01/21/17 21:30 Urine pH 5.0 (5.0-8.0) 01/21/17 21:30 Ur Specific [place] 1.031 (1.001-1.035) 01/21/17 21:30 Urine Protein Negative (NEGATIVE) 01/21/17 21:30 Urine Glucose (UA) Negative (NEGATIVE) 01/21/17 21:30 Urine Ketones Negative (NEGATIVE) 01/21/17 21:30 Urine Blood Negative (NEGATIVE) 01/21/17 21:30 Urine Nitrite Negative (NEGATIVE) 01/21/17 21:30 Urine Bilirubin Negative (NEGATIVE) 01/21/17 21:30 Urine Urobilinogen Negative E.U./dl (0.2-1.0) 01/21/17 21:30 Ur Leukocyte Esterase Negative (NEGATIVE) 01/21/17 21:30 RPR Titer Nonreactive (NONREACTIVE) 01/22/17 06:00 labs noted - Treatment Patient has Accepted a Rehab Referral to: Referred to [facility] to complete detox - Medication Discharge Medications: Ambulatory Orders NK [No Known Home Medication] 12/09/16 - AMA Did Patient Leave Against Medical Advice: No (non-compliance with unit's rules)
[2017-01-23 10:55] VITALS: BP 156/96; PULSE 78; TEMP 97.6
[2017-01-23] MEDS ORDERED: chlordiazePOXIDE 5 MG CAPSULE PO SCH (23:00)
[2017-01-24] MEDS ORDERED: chlordiazePOXIDE HCL 10 MG CAPSULE PO SCH (23:00)
[2017-01-25] MEDS ORDERED: METHADONE HCL 10 MG TABLET (FOR DETOX USE ONLY) PO SCH (10:00)
[2017-01-26] MEDS ORDERED: METHADONE HCL 5 MG TABLET (FOR DETOX USE ONLY) PO SCH (06:00)
== END 2017-01-23 10:45 | disposition home or self-care (01) | DRG 773 ==
LOC: YASAS 12:45 → Y6N 17:59
PROVIDERS: ADMIT Internal Medicine; ATTEND Internal Medicine
PROC: HZ2ZZZZ Detoxification Services for Substance Abuse Treatment (ICD-10-PCS; principal; 2017-01-23)
DX: F11.23 Opioid dependence with withdrawal (principal); F14.20 Cocaine dependence, uncomplicated; F12.20 Cannabis dependence, uncomplicated; F17.213 Nicotine dependence, cigarettes, with withdrawal; I10 Essential (primary) hypertension; F91.8 Other conduct disorders
CPT/HCPCS: 36415; 80053; 81003; 85027; 86593; 93005; 93010

== ENCOUNTER 2018-11-28 11:50 | Inpatient (IN) | payer OTHER ==
[2018-11-28 12:15] VITALS: BMI 28.3
--- NOTE | 2018-11-28 15:57 | HP ---
COWS - Scale Resting Pulse: 1= [place] 81-100 Sweatin= Chills/Flushing Restless Observation: 1= Difficult to Sit Still Pupil Size: 0= Normal to Room Light Bone or Joint Aches: 2= Severe Diffuse Aches Runny Nose/ Eye Tearin= Runny Nose/Eyes GI Upset > 30mins: 2= Nausea/Diarrhea Tremor Observation: 1= Tremor [place], Not Seen Yawning Observation: 1= 1-2x During Session Anxiety or Irritability: 1=Feels Anxious/Irritable Goose Flesh Skin: 3=Piloerection COWS Score: 15 CIWA Score - Admission Criteria [facility]ASAS Guidelines: Admission for Medically Managed Detox: Requires at least one of the followin. CIWA greater than 12 2. Seizures within the past 24 hours 3. Delirium tremens within the past 24 hours 4. Hallucinations within the past 24 hours 5. Acute intervention needed for co occurring medical disorder 6. Acute intervention needed for co occurring psychiatric disorder 7. Severe withdrawal that cannot be handled at a lower level of care (continued vomiting, continued diarrhea, abnormal vital signs) requiring intravenous medication and/or fluids 8. Admission ROS BHS - HPI Chief Complaint: here for heroin detox 52 yo with h/o HTN- on norvasc/clonidine heroin 6-7 bags sniffing/day cocaine- 1/2 gram/day THC- 2 grams/day alcohol- occ on weekends lives in [facility]: no meds Utox: THC, cocaine, opiates Allergies/Adverse Reactions: Allergies Allergy/AdvReac Type Severity Reaction Status Date / Time No Known Allergies Allergy Verified 11/28/18 15:58 Exam Limitations: No Limitations - Ebola screening Have you traveled outside of the country in the last 21 days: No Have you had contact with anyone from an Ebola affected area: No Have you been sick,other than usual withdrawal symptoms: No Patient History - Patient Medical History Hx Anemia: No Hx Asthma: No Hx Chronic Obstructive Pulmonary Disease (COPD): No Hx Cancer: No Hx Cardiac Disorders: No Hx Congestive Heart Failure: No Hx Hypertension: Yes (norvasc, clonidine- last use 4 days ago) Hx Hypercholesterolemia: No Hx Pacemaker: No HX Cerebrovascular Accident: No Hx Seizures: No Hx Dementia: No Hx Diabetes: No Hx Gastrointestinal Disorders: No Hx Liver Disease: No Hx Genitourinary Disorders: No Hx Sexually Transmitted Disorders: No Hx Renal Disease (ESRD): No Hx Thyroid Disease: No Hx Human Immunodeficiency Virus (HIV): No (NEGATIVE HX) Hx Hepatitis C: No (negative) Hx Depression: No Hx Suicide Attempt: No (denies) Hx Bipolar Disorder: No Hx Schizophrenia: No - Patient Surgical History Past Surgical History: No Hx Neurologic Surgery: No Hx Cataract Extraction: No Hx Cardiac Surgery: No Hx Lung Surgery: No Hx Breast Surgery: No Hx Breast Biopsy: No Hx Abdominal Surgery: No Hx Appendectomy: No Hx Cholecystectomy: No Hx Genitourinary Surgery: No Hx Section: No Hx Orthopedic Surgery: No Anesthesia Reaction: No - PPD History Date: 12/10/16 Results: 0 mm - Smoking Cessation Smoking history: Current every day smoker Have you smoked in the past 12 months: Yes Aproximately how many cigarettes per day: 10 Cigars Per Day: 0 Hx Chewing Tobacco Use: No Initiated information on smoking cessation: Yes 'Breaking Loose' booklet given: 11/28/18 Family Disease History - Family Disease History Family Disease History: Heart Disease: Father (), Mother (), [place] : Father Admission Physical Exam BHS - Vital Signs Vital Signs: Vital Signs - 24 hr 11/28/18 12:14 Temperature 98.6 F Pulse Rate 81 Respiratory 20 Rate Blood Pressure 151/102 H - Physical General Appearance: Yes: Within Normal Limits HEENTM: Yes: Within Normal Limits Respiratory: Yes: Within Normal Limits Neck: Yes: Within Normal Limits Cardiology: Yes: Within Normal Limits Abdominal: Yes: Within Normal Limits Genitourinary: Yes: Within Normal Limits Back: Yes: Within Normal Limits Extremities: Yes: Within Normal Limits Neurological: Yes: Within Normal Limits Integumentary: Yes: Within Normal Limits Lymphatic: Yes: Within Normal Limits - Diagnostic (1) HTN (hypertension) Current Visit: No Status: Acute Qualifiers: Hypertension type: essential hypertension Qualified Code(s): I10 - Essential (primary) hypertension Comment: begin amlodipine 5 mg now and daily clonidine 0.1 mg prn q6h (2) Nicotine dependence Current Visit: No Status: Acute Qualifiers: Nicotine product type: cigarettes Substance use status: in withdrawal Qualified Code(s): F17.213 - Nicotine dependence, cigarettes, with withdrawal (3) Opioid dependence with withdrawal Current Visit: No Status: Acute (4) Cannabis dependence, uncomplicated Current Visit: No Status: Chronic (5) Cocaine dependence Current Visit: No Status: Chronic Qualifiers: Substance use status: uncomplicated Qualified Code(s): F14.20 - Cocaine dependence, uncomplicated BHS Breath Alcohol Content Breath Alcohol Content: 0 Urine Drug Screen - Results Drug Screen Negative: No Urine Drug Screen Results: THC-Marijuana, SUSAN-Cocaine, OPI-Opiates
[2018-11-28] MEDS ORDERED: LOPERAMIDE HCL 2 MG CAPSULE PO PRN (16:04)
[2018-11-28] MEDS ORDERED: MAGNESIUM CITRATE 300 ML BOTTLE PO PRN (16:04)
[2018-11-28] MEDS ORDERED: MENTHOL/PHENOL 1 EACH UD MM PRN (16:04)
[2018-11-28] MEDS ORDERED: guaiFENesin/D-METHORPHAN HB 10 ML UNIT-DOSE CUPS PO PRN (16:04)
[2018-11-28] MEDS ORDERED: MAGNESIUM HYDROX 2400MG/30ML ORAL SUSPENSION 30 ML CUP PO PRN (16:04)
[2018-11-28] MEDS ORDERED: IBUPROFEN 400 MG TABLET (FP) PO PRN (16:04)
[2018-11-28] MEDS ORDERED: ACETAMINOPHEN 325 MG TABLET (FP) PO PRN (16:04)
[2018-11-28] MEDS ORDERED: P-EPHED 60MG/TRIPROLIDI 2.5MG TABLET PO PRN (16:04)
[2018-11-28] MEDS ORDERED: METHADONE HCL 10 MG TABLET (FOR DETOX USE ONLY) PO ONE ×2 (17:30→23:00)
[2018-11-28] MEDS: diazePAM 5 MG TABLET PO PRN ×2 (18:23→22:00)
[2018-11-28] MEDS: amLODIPine BESYLATE 5 MG TABLET (FP) PO SCH (18:23)
[2018-11-28] MEDS: THIAMINE HCL 100 MG TABLET (FP) PO SCH (21:56)
[2018-11-29] MEDS: diazePAM 5 MG TABLET PO PRN ×3 (06:16→19:53)
[2018-11-29] MEDS: MAG HYDROX/AL HYDROX/SIMETH 30 ML UNIT-DOSE CUP PO PRN ×2 (07:51→22:24)
[2018-11-29] MEDS ORDERED: METHADONE HCL 10 MG TABLET (FOR DETOX USE ONLY) PO ONE (10:00)
[2018-11-29] MEDS: amLODIPine BESYLATE 5 MG TABLET (FP) PO SCH (10:07)
[2018-11-29] MEDS: PRENATAL VITAMINS W/ FOLIC ACID TABLET (FP) PO SCH (10:07)
[2018-11-29 11:37] LABS: ALK PHOS 98 U/L (45-117); ANION GAP 7 MMOL/L (8-16); BILIRUBIN,TOTAL 0.1 mg/dL (0.2-1); BLOOD UREA NITROGEN 15 mg/dL (7-18); CALCIUM 8.4 mg/dL (8.5-10.1); CHLORIDE 102 mmol/L (98-107); CO2 31 mmol/L (21-32); CREATININE 1.3 mg/dL (0.55-1.3); GLUCOSE,RANDOM 121 mg/dL (74-106); POTASSIUM 3.5 mmol/L (3.5-5.1); SGOT/AST 39 U/L (15-37); SGPT/ALT 68 U/L (13-61); SODIUM 140 mmol/L (136-145); TOT PROT 5.8 g/dl (6.4-8.2)
[2018-11-29 11:47] LABS: HEMATOCRIT 37.8 % (35.4-49); HEMOGLOBIN 12.5 GM/dL (11.7-16.9); MCH 29.3 pg (25.7-33.7); MEAN CELL VOLUME 88.6 fl (80-96); MEAN PLT VOLUME 7.5 fl (7.5-11.1); PLATELET COUNT 303 K/MM3 (134-434); RBC 4.27 M/mm3 (4.00-5.60); RDW 13.2 % (11.9-15.9); WHITE BLOOD COUNT 5.2 K/mm3 (4.0-10.0)
[2018-11-29 12:26] LABS: URINE APPEARANCE SLCLOUDY; URINE BILIRUBIN NEGATIVE (<2.0 mg/dL); URINE COLOR YELLOW; URINE GLUCOSE (UA) NEGATIVE (NEGATIVE); URINE KETONE NEGATIVE (NEGATIVE); URINE LEUK ESTERASE NEGATIVE (NEGATIVE); URINE NITRITE NEGATIVE (NEGATIVE); URINE PROTEIN NEGATIVE (NEGATIVE)
--- NOTE | 2018-11-29 13:43 | PN ---
BHS COWS - Scale Resting Pulse: 0= [place] 80 or Below Sweatin= Chills/Flushing Restless Observation: 1= Difficult to Sit Still Pupil Size: 0= Normal to Room Light Bone or Joint Aches: 0= None Runny Nose/ Eye Tearin= Nasal Congestion GI Upset > 30mins: 0= None Tremor Observation of Outstretched Hands: 0= None Yawning Observation: 1= 1-2x During Session Anxiety or Irritability: 2=Irritable/Anxious Goose Flesh Skin: 3=Piloerection COWS Score: 9 BHS Progress Note (SOAP) Subjective: Interrupted Sleep, Fatigue. Objective: PATIENT A & O X 3, OBSERVED AMBULATING ON UNIT. IN NO ACUTE DISTRESS. 11/29/18 13:39 Vital Signs Temperature 97.2 F L 11/29/18 13:05 Pulse Rate 79 11/29/18 13:05 Respiratory Rate 18 11/29/18 13:05 Blood Pressure 153/108 H 11/29/18 13:05 O2 Sat by Pulse Oximetry (%) Laboratory Tests 11/29/18 11/29/18 11/29/18 07:00 07:00 07:00 WBC 5.2 RBC 4.27 Hgb 12.5 Hct 37.8 MCV 88.6 MCH 29.3 MCHC 33.0 RDW 13.2 Plt Count 303 MPV 7.5 D Sodium 140 Potassium 3.5 Chloride 102 Carbon Dioxide 31 Anion Gap 7 L BUN 15 Creatinine 1.3 Creat Clearance w eGFR 58.20 Random Glucose 121 H Calcium 8.4 L Total Bilirubin 0.1 L AST 39 H ALT 68 H Alkaline Phosphatase 98 Total Protein 5.8 L Albumin 3.0 L Urine Color Urine Appearance Urine pH Ur Specific [place] Urine Protein Urine Glucose (UA) Urine Ketones Urine Blood Urine Nitrite Urine Bilirubin Urine Urobilinogen Ur Leukocyte Esterase RPR Titer Nonreactive 11/29/18 08:50 WBC RBC Hgb Hct MCV MCH MCHC RDW Plt Count MPV Sodium Potassium Chloride Carbon Dioxide Anion Gap BUN Creatinine Creat Clearance w eGFR Random Glucose Calcium Total Bilirubin AST ALT Alkaline Phosphatase Total Protein Albumin Urine Color Yellow Urine Appearance Slcloudy Urine pH 7.0 D Ur Specific [place] 1.018 Urine Protein Negative Urine Glucose (UA) Negative Urine Ketones Negative Urine Blood Negative Urine Nitrite Negative Urine Bilirubin Negative Urine Urobilinogen 2.0 Ur Leukocyte Esterase Negative RPR Titer LABS NOTED. Assessment: 11/29/18 13:41 WITHDRAWAL SYMPTOMS. HYPERTENSION. 11/29/18 13:43 Plan: CONTINUE DETOX. INCREASE DAILY DOSE OF AMLODIPINE TO 10 MG PO DAILY AND START CLONIDINE, 0.1 MG PO DAILY (PATIENT REPORTS HISTORY OF TAKING BOTH MEDICATIONS ON OUTPATIENT BASIS PRIOR TO ADMISSION TO DETOX.
[2018-11-29] MEDS ORDERED: cloNIDine HCL 0.1 MG TABLET PO SCH (13:45)
[2018-11-29] MEDS ORDERED: amLODIPine BESYLATE 5 MG TABLET (FP) PO ONE (14:00)
[2018-11-29] MEDS ORDERED: cloNIDine HCL 0.1 MG TABLET PO ONE (17:00)
[2018-11-29] MEDS ORDERED: METOPROLOL TARTRATE 25 MG TABLET (FP) PO ONE (17:15)
[2018-11-29] MEDS: cloNIDine HCL 0.1 MG TABLET PO SCH (22:04)
[2018-11-29] MEDS: MELATONIN 5 MG TABLETS PO PRN (22:04)
[2018-11-29] MEDS: THIAMINE HCL 100 MG TABLET (FP) PO SCH (22:04)
[2018-11-30] MEDS: diazePAM 5 MG TABLET PO PRN ×4 (04:56→19:45)
[2018-11-30] MEDS ORDERED: METHADONE HCL 5 MG TABLET (FOR DETOX USE ONLY) PO ONE (10:00)
[2018-11-30] MEDS: cloNIDine HCL 0.1 MG TABLET PO SCH ×2 (10:19→21:57)
[2018-11-30] MEDS: amLODIPine BESYLATE 10 MG TABLET (FP) PO SCH (10:20)
[2018-11-30] MEDS: PRENATAL VITAMINS W/ FOLIC ACID TABLET (FP) PO SCH (10:20)
--- NOTE | 2018-11-30 10:31 | PN ---
BHS COWS - Scale Resting Pulse: 1= [place] 81-100 Sweatin= Chills/Flushing Restless Observation: 0= Sits Still Pupil Size: 1= Pupils >than Normal Bone or Joint Aches: 1= Mild Discomfort Runny Nose/ Eye Tearin= None GI Upset > 30mins: 1= Stomach Cramp Tremor Observation of Outstretched Hands: 1= Tremor [place], Not Seen Yawning Observation: 0= None Anxiety or Irritability: 1=Feels Anxious/Irritable Goose Flesh Skin: 0=Smooth Skin COWS Score: 7 BHS Progress Note (SOAP) Subjective: body aches mild tremor sweating otherwise feeling ok Objective: 11/30/18 10:30 Vital Signs Temperature 97.8 F 11/30/18 09:14 Pulse Rate 74 11/30/18 09:14 Respiratory Rate 18 11/30/18 09:14 Blood Pressure 134/91 11/30/18 09:14 O2 Sat by Pulse Oximetry (%) Laboratory Last Values WBC 5.2 K/mm3 (4.0-10.0) 11/29/18 07:00 RBC 4.27 M/mm3 (4.00-5.60) 11/29/18 07:00 Hgb 12.5 GM/dL (11.7-16.9) 11/29/18 07:00 Hct 37.8 % (35.4-49) 11/29/18 07:00 MCV 88.6 fl (80-96) 11/29/18 07:00 MCH 29.3 pg (25.7-33.7) 11/29/18 07:00 MCHC 33.0 g/dl (32.0-35.9) 11/29/18 07:00 RDW 13.2 % (11.9-15.9) 11/29/18 07:00 Plt Count 303 K/MM3 (134-434) 11/29/18 07:00 MPV 7.5 fl (7.5-11.1) D 11/29/18 07:00 Sodium 140 mmol/L (136-145) 11/29/18 07:00 Potassium 3.5 mmol/L (3.5-5.1) 11/29/18 07:00 Chloride 102 mmol/L (98-107) 11/29/18 07:00 Carbon Dioxide 31 mmol/L (21-32) 11/29/18 07:00 Anion Gap 7 MMOL/L (8-16) L 11/29/18 07:00 BUN 15 mg/dL (7-18) 11/29/18 07:00 Creatinine 1.3 mg/dL (0.55-1.3) 11/29/18 07:00 Creat Clearance w eGFR 58.20 (>60) 11/29/18 07:00 Random Glucose 121 mg/dL (74-106) H 11/29/18 07:00 Calcium 8.4 mg/dL (8.5-10.1) L 11/29/18 07:00 Total Bilirubin 0.1 mg/dL (0.2-1) L 11/29/18 07:00 AST 39 U/L (15-37) H 11/29/18 07:00 ALT 68 U/L (13-61) H 11/29/18 07:00 Alkaline Phosphatase 98 U/L (45-117) 11/29/18 07:00 Total Protein 5.8 g/dl (6.4-8.2) L 11/29/18 07:00 Albumin 3.0 g/dl (3.4-5.0) L 11/29/18 07:00 Urine Color Yellow 11/29/18 08:50 Urine Appearance Slcloudy 11/29/18 08:50 Urine pH 7.0 (5.0-8.0) D 11/29/18 08:50 Ur Specific [place] 1.018 (1.010-1.035) 11/29/18 08:50 Urine Protein Negative (NEGATIVE) 11/29/18 08:50 Urine Glucose (UA) Negative (NEGATIVE) 11/29/18 08:50 Urine Ketones Negative (NEGATIVE) 11/29/18 08:50 Urine Blood Negative (NEGATIVE) 11/29/18 08:50 Urine Nitrite Negative (NEGATIVE) 11/29/18 08:50 Urine Bilirubin Negative (<2.0 mg/dL) 11/29/18 08:50 Urine Urobilinogen 2.0 mg/dL (0.2-1.0) 11/29/18 08:50 Ur Leukocyte Esterase Negative (NEGATIVE) 11/29/18 08:50 RPR Titer Nonreactive (NONREACTIVE) 11/29/18 07:00 lab noted Assessment: 11/30/18 10:30 withdrawal sx Plan: continue detox
[2018-11-30] MEDS: THIAMINE HCL 100 MG TABLET (FP) PO SCH (21:57)
[2018-11-30] MEDS: MELATONIN 5 MG TABLETS PO PRN (21:57)
[2018-12-01] MEDS: diazePAM 5 MG TABLET PO PRN ×4 (00:32→15:42)
[2018-12-01] MEDS ORDERED: METHADONE HCL 5 MG TABLET (FOR DETOX USE ONLY) PO ONE (10:00)
--- NOTE | 2018-12-01 10:19 | PN ---
BHS Progress Note (SOAP) Subjective: body aches muscle cramping sweating tremor Objective: 12/01/18 10:18 Vital Signs Temperature 97.4 F L 12/01/18 09:25 Pulse Rate 71 12/01/18 09:25 Respiratory Rate 18 12/01/18 09:25 Blood Pressure 123/84 12/01/18 09:25 O2 Sat by Pulse Oximetry (%) Laboratory Last Values WBC 5.2 K/mm3 (4.0-10.0) 11/29/18 07:00 RBC 4.27 M/mm3 (4.00-5.60) 11/29/18 07:00 Hgb 12.5 GM/dL (11.7-16.9) 11/29/18 07:00 Hct 37.8 % (35.4-49) 11/29/18 07:00 MCV 88.6 fl (80-96) 11/29/18 07:00 MCH 29.3 pg (25.7-33.7) 11/29/18 07:00 MCHC 33.0 g/dl (32.0-35.9) 11/29/18 07:00 RDW 13.2 % (11.9-15.9) 11/29/18 07:00 Plt Count 303 K/MM3 (134-434) 11/29/18 07:00 MPV 7.5 fl (7.5-11.1) D 11/29/18 07:00 Sodium 140 mmol/L (136-145) 11/29/18 07:00 Potassium 3.5 mmol/L (3.5-5.1) 11/29/18 07:00 Chloride 102 mmol/L (98-107) 11/29/18 07:00 Carbon Dioxide 31 mmol/L (21-32) 11/29/18 07:00 Anion Gap 7 MMOL/L (8-16) L 11/29/18 07:00 BUN 15 mg/dL (7-18) 11/29/18 07:00 Creatinine 1.3 mg/dL (0.55-1.3) 11/29/18 07:00 Creat Clearance w eGFR 58.20 (>60) 11/29/18 07:00 Random Glucose 121 mg/dL (74-106) H 11/29/18 07:00 Calcium 8.4 mg/dL (8.5-10.1) L 11/29/18 07:00 Total Bilirubin 0.1 mg/dL (0.2-1) L 11/29/18 07:00 AST 39 U/L (15-37) H 11/29/18 07:00 ALT 68 U/L (13-61) H 11/29/18 07:00 Alkaline Phosphatase 98 U/L (45-117) 11/29/18 07:00 Total Protein 5.8 g/dl (6.4-8.2) L 11/29/18 07:00 Albumin 3.0 g/dl (3.4-5.0) L 11/29/18 07:00 Urine Color Yellow 11/29/18 08:50 Urine Appearance Slcloudy 11/29/18 08:50 Urine pH 7.0 (5.0-8.0) D 11/29/18 08:50 Ur Specific [place] 1.018 (1.010-1.035) 11/29/18 08:50 Urine Protein Negative (NEGATIVE) 11/29/18 08:50 Urine Glucose (UA) Negative (NEGATIVE) 11/29/18 08:50 Urine Ketones Negative (NEGATIVE) 11/29/18 08:50 Urine Blood Negative (NEGATIVE) 11/29/18 08:50 Urine Nitrite Negative (NEGATIVE) 11/29/18 08:50 Urine Bilirubin Negative (<2.0 mg/dL) 11/29/18 08:50 Urine Urobilinogen 2.0 mg/dL (0.2-1.0) 11/29/18 08:50 Ur Leukocyte Esterase Negative (NEGATIVE) 11/29/18 08:50 RPR Titer Nonreactive (NONREACTIVE) 11/29/18 07:00 lab noted Assessment: 12/01/18 10:19 opiate withdrawal sx Plan: continue detox
[2018-12-01] MEDS: amLODIPine BESYLATE 10 MG TABLET (FP) PO SCH (10:42)
[2018-12-01] MEDS: cloNIDine HCL 0.1 MG TABLET PO SCH ×2 (10:42→22:16)
[2018-12-01] MEDS: PRENATAL VITAMINS W/ FOLIC ACID TABLET (FP) PO SCH (10:42)
[2018-12-01] MEDS: MELATONIN 5 MG TABLETS PO PRN (22:16)
[2018-12-01] MEDS: THIAMINE HCL 100 MG TABLET (FP) PO SCH (22:16)
[2018-12-02 09:21] VITALS: BP 130/92; PULSE 84; TEMP 98.5
[2018-12-02] MEDS ORDERED: METHADONE HCL 10 MG TABLET (FOR DETOX USE ONLY) PO ONE (10:00)
--- NOTE | 2018-12-02 18:58 | DS ---
[facility] Detox Discharge Summary Admission Date: 11/28/18 Discharge Date: 12/02/18 - History Present History: Cannabis Dependence, Cocaine Dependence, Opioid Dependence Additional Comments: PATIENT GOING HOME FOR TIME BEING TO ATTEND TO PERSONAL ISSUES. PATIENT WILL PURSUE REHAB ADMISSION AT A LATER DATE IN THE NEAR FUTURE. PATIENT DECLINED OFFER OF MEDICATION PRESCRIPTION FOR HOME MEDICATION AT TIME OF DISCHARGE FROM DETOX, NOTING THAT HE CURRENTLY HAS ADEQUATE SUPPLIES OF ALL PRESCRIBED HOME MEDICATIONS AT HOME. PATIENT WAS DISCHARGED FROM DETOX UNIT IN STABLE MEDICAL CONDITION. Pertinent Past History: HTN, Nicotine Dependence. - Physical Exam Results Vital Signs: Vital Signs Temperature 98.5 F 12/02/18 09:18 Pulse Rate 84 12/02/18 09:18 Respiratory Rate 18 12/02/18 09:18 Blood Pressure 130/92 12/02/18 09:18 O2 Sat by Pulse Oximetry (%) Pertinent Admission Physical Exam Findings: WITHDRAWAL SYMPTOMS. Laboratory Tests 11/29/18 11/29/18 11/29/18 07:00 07:00 07:00 WBC 5.2 RBC 4.27 Hgb 12.5 Hct 37.8 MCV 88.6 MCH 29.3 MCHC 33.0 RDW 13.2 Plt Count 303 MPV 7.5 D Sodium 140 Potassium 3.5 Chloride 102 Carbon Dioxide 31 Anion Gap 7 L BUN 15 Creatinine 1.3 Creat Clearance w eGFR 58.20 Random Glucose 121 H Calcium 8.4 L Total Bilirubin 0.1 L AST 39 H ALT 68 H Alkaline Phosphatase 98 Total Protein 5.8 L Albumin 3.0 L Urine Color Urine Appearance Urine pH Ur Specific [place] Urine Protein Urine Glucose (UA) Urine Ketones Urine Blood Urine Nitrite Urine Bilirubin Urine Urobilinogen Ur Leukocyte Esterase RPR Titer Nonreactive 11/29/18 08:50 WBC RBC Hgb Hct MCV MCH MCHC RDW Plt Count MPV Sodium Potassium Chloride Carbon Dioxide Anion Gap BUN Creatinine Creat Clearance w eGFR Random Glucose Calcium Total Bilirubin AST ALT Alkaline Phosphatase Total Protein Albumin Urine Color Yellow Urine Appearance Slcloudy Urine pH 7.0 D Ur Specific [place] 1.018 Urine Protein Negative Urine Glucose (UA) Negative Urine Ketones Negative Urine Blood Negative Urine Nitrite Negative Urine Bilirubin Negative Urine Urobilinogen 2.0 Ur Leukocyte Esterase Negative RPR Titer LABS NOTED. - Treatment Hospital Course: Detox Protocol Followed, Detoxed Safely, Responded well, Discharged Condition Good Patient has Accepted a Rehab Referral to: PT ATTENDING TO PERSONAL ISSUES,WILL PURSUE REHAB ADMISSION IN NEAR FUTURE. - Medication Discharge Medications: Ambulatory Orders Amlodipine Besylate [Norvasc -] 10 mg PO DAILY 11/28/18 cloNIDine HCL [Catapres -] 0.1 mg PO BID 11/28/18 - Diagnosis (1) HTN (hypertension) Status: Acute Qualifiers: Hypertension type: essential hypertension Qualified Code(s): I10 - Essential (primary) hypertension (2) Nicotine dependence Status: Acute Qualifiers: Nicotine product type: cigarettes Substance use status: in withdrawal Qualified Code(s): F17.213 - Nicotine dependence, cigarettes, with withdrawal (3) Opioid dependence with withdrawal Status: Acute (4) Cannabis dependence, uncomplicated Status: Chronic (5) Cocaine dependence, uncomplicated Status: Chronic - AMA Did Patient Leave Against Medical Advice: No
[2018-12-03] MEDS ORDERED: METHADONE HCL 5 MG TABLET (FOR DETOX USE ONLY) PO ONE (06:00)
== END 2018-12-02 08:45 | disposition home or self-care (01) | DRG 773 ==
LOC: YASAS 11:50 → Y3N 17:13
PROVIDERS: ADMIT Neuromusculoskeletal Medicine & OMM; ATTEND Neuromusculoskeletal Medicine & OMM
PROC: HZ2ZZZZ Detoxification Services for Substance Abuse Treatment (ICD-10-PCS; principal; 2018-11-28)
DX: F11.23 Opioid dependence with withdrawal (principal); F14.20 Cocaine dependence, uncomplicated; F12.20 Cannabis dependence, uncomplicated; F17.213 Nicotine dependence, cigarettes, with withdrawal; I10 Essential (primary) hypertension
CPT/HCPCS: 36415; 80053; 81003; 85027; 86593; J0735

== ENCOUNTER 2019-03-31 18:10 | Inpatient (IN) | payer OTHER ==
[2019-03-31 21:22] VITALS: BMI 25.1
--- NOTE | 2019-03-31 23:02 | HP ---
COWS - Scale Resting Pulse: 0= HI 80 or Below Sweatin= No chills or Flushing Restless Observation: 0= Sits Still Pupil Size: 0= Normal to Room Light Bone or Joint Aches: 1= Mild Discomfort Runny Nose/ Eye Tearin= Nasal Congestion GI Upset > 30mins: 0= None Tremor Observation: 0= None Yawning Observation: 0= None Anxiety or Irritability: 2=Irritable/Anxious Goose Flesh Skin: 0=Smooth Skin COWS Score: 4 CIWA Score Nausea/Vomitin-No Nausea/No Vomiting Muscle Tremors: None Anxiety: 3 Agitation: 4-Moderately Restless Paroxysmal Sweats: 3 Orientation: 0-Oriented Tacttile Disturbances: 2-Mild Itch/Numbness/Burn Auditory Disturbances: 0-None Visual Disturbances: 0-None Headache: 0-None Present CIWA-Ar Total Score: 12 - Admission Criteria OASAS Guidelines: Admission for Medically Managed Detox: Requires at least one of the followin. CIWA greater than 12 2. Seizures within the past 24 hours 3. Delirium tremens within the past 24 hours 4. Hallucinations within the past 24 hours 5. Acute intervention needed for co occurring medical disorder 6. Acute intervention needed for co occurring psychiatric disorder 7. Severe withdrawal that cannot be handled at a lower level of care (continued vomiting, continued diarrhea, abnormal vital signs) requiring intravenous medication and/or fluids 8. Patient presents the following: CIWA greater than 12 Admission Criteria Met: Admission criteria met Admission ROS [facility] Chief Complaint: c/o withdrawal sx's. seeking detox Allergies/Adverse Reactions: Allergies Allergy/AdvReac Type Severity Reaction Status Date / Time No Known Allergies Allergy Verified 03/31/19 21:12 History of Present Illness: 53 Y.O. MALE WITH REPORTED OPIATE AND ALCOHOL, CANNABIS AND COCAINE DEPENDENCE HERE FOR DETOX. CLIENT IS SELF REFERRED. KNOWN TO THIS PROGRAM LAST DC 01/2019. PRSENTS WITH MILD WITHDRAWAL SX'S CLIENT REPORTS HE HAD A DRINK EARLIER DUE TO WORSENING WITHDRAWAL SX'S WHILE WAITING ON ADMISSION. HE UTOX IS NEGATIVE FOR OPI. D/W CLIENT THAT HE WILL ONLY BE DETOXED FROM ALCOHOL. WILL TREAT WITHDRAWAL SX'S ACCORDINGLY. CLIENT VERBALIZES UNDERSTANDING AND WOULD LIKE TO PROCEED WITH ADMISSION. REPORTS LONGEST CLEAN TIME 10 MONTHS WHILE IN A RESIDENTIAL PROGRAM. DENIES ANY CLEAN TIME IN THE PAST 2 YEARS. DOMICILED, UNEMPLOYED, DENIES LEGALS, SI/HI/AVH, SZ D/O. Exam Limitations: No Limitations - Ebola screening Have you traveled outside of the country in the last 21 days: No Have you had contact with anyone from an Ebola affected area: No Do you have a fever: No - Review of Systems Constitutional: Chills, Loss of Appetite, Malaise, Night Sweats EENT: reports: Other (RUNNY NOSE) Respiratory: reports: No Symptoms reported Cardiac: reports: No Symptoms Reported GI: reports: Poor Appetite : reports: No Symptoms Reported Musculoskeletal: reports: Joint Pain Integumentary: reports: No Symptoms Reported Neuro: reports: No Symptoms reported Endocrine: reports: No Symptoms Reported Hematology: reports: No Symptoms Reported Psychiatric: reports: Orientated x3, Agitated (IRRITABLE) Other Systems: Reviewed and Negative Patient History - Patient Medical History Hx Anemia: No Hx Asthma: No Hx Chronic Obstructive Pulmonary Disease (COPD): No Hx Cancer: No Hx Cardiac Disorders: No Hx Congestive Heart Failure: No Hx Hypertension: Yes (norvasc, clonidine- last use 4 days ago) Hx Hypercholesterolemia: No Hx Pacemaker: No HX Cerebrovascular Accident: No Hx Seizures: No Hx Dementia: No Hx Diabetes: No Hx Gastrointestinal Disorders: No Hx Liver Disease: No Hx Genitourinary Disorders: No Hx Sexually Transmitted Disorders: No Hx Renal Disease (ESRD): No Hx Thyroid Disease: No Hx Human Immunodeficiency Virus (HIV): No (NEGATIVE HX) Hx Hepatitis C: No (negative) Hx Depression: No Hx Suicide Attempt: No (denies) Hx Bipolar Disorder: No Hx Schizophrenia: No Other Medical History: DENIES - Patient Surgical History Past Surgical History: No Hx Neurologic Surgery: No Hx Cataract Extraction: No Hx Cardiac Surgery: No Hx Lung Surgery: No Hx Breast Surgery: No Hx Breast Biopsy: No Hx Abdominal Surgery: No Hx Appendectomy: No Hx Cholecystectomy: No Hx Genitourinary Surgery: No Hx Section: No Hx Orthopedic Surgery: No Anesthesia Reaction: No - PPD History Previous Implant?: Yes Documented Results: Negative w/proof Implanted On Prior R Admission?: Yes Date: 11/30/18 Results: 0 mm PPD to be Administered?: No - Smoking Cessation Smoking history: Current every day smoker Have you smoked in the past 12 months: Yes Aproximately how many cigarettes per day: 10 Cigars Per Day: 0 Hx Chewing Tobacco Use: No Initiated information on smoking cessation: Yes 'Breaking Loose' booklet given: 03/31/19 - Substance & Tx. History Hx Alcohol Use: Yes Hx Substance Use: Yes Substance Use Type: Alcohol, Heroin Hx Substance Use Treatment: Yes ([facility]) - Substances abused Heroin Substance route: Inhalation Frequency: Daily Amount used: 4bags/day Age of first use: 46 Date of last use: 03/31/19 Alcohol Substance route: Oral Frequency: 3-6 times per week Amount used: 2pints of bk Age of first use: 14 Date of last use: 03/30/19 Family Disease History - Family Disease History Family Disease History: Heart Disease: Father (), Mother (), [place] : Father Admission Physical Exam [facility] - Vital Signs Vital Signs: Vital Signs - 24 hr 03/31/19 21:17 Temperature 98.4 F Pulse Rate 73 Respiratory 16 Rate Blood Pressure 164/94 - Physical General Appearance: Yes: Irritable, Anxious HEENTM: Yes: EOMI, Normocephalic, Normal Voice, SHEEBA, Pharynx Normal, Other ( DENTURES BOTH) Respiratory: Yes: Chest Non-Tender, Lungs Clear, Normal Breath Sounds, No Respiratory Distress, No Accessory Muscle Use Neck: Yes: No masses,lesions,Nodules, Supple, Trachea in good position Breast: Yes: Breast Exam Deferred Cardiology: Yes: Regular Rhythm, Regular Rate, S1, S2 Abdominal: Yes: Normal Bowel Sounds, Non Tender, Flat, Soft Genitourinary: Yes: Within Normal Limits (NO C/O) Back: Yes: Normal Inspection Musculoskeletal: Yes: full range of Motion, Gait Steady Extremities: Yes: Normal Capillary Refill, Normal Range of Motion, Non-Tender Neurological: Yes: Fully Oriented, Alert, Motor Strength 5/5 Integumentary: Yes: Dry, Warm Lymphatic: Yes: Within Normal Limits - Diagnostic (1) Alcohol dependence with uncomplicated withdrawal Current Visit: Yes Status: Acute (2) Substance induced mood disorder Current Visit: Yes Status: Suspected (3) HTN (hypertension) Current Visit: Yes Status: Chronic Qualifiers: Hypertension type: essential hypertension Qualified Code(s): I10 - Essential (primary) hypertension (4) Nicotine dependence Current Visit: Yes Status: Chronic Qualifiers: Nicotine product type: cigarettes Substance use status: in withdrawal Qualified Code(s): F17.213 - Nicotine dependence, cigarettes, with withdrawal (5) Cannabis dependence, uncomplicated Current Visit: Yes Status: Chronic (6) Cocaine dependence, uncomplicated Current Visit: Yes Status: Chronic (7) Non compliance w medication regimen Current Visit: Yes Status: Chronic Cleared for Admission [facility] - Detox or Rehab [facility] Level of Care: Medically Managed Detox Regimen/Protocol: Librium Claeared for Rehab Admission: No Breathalyzer - Breathalyzer Breathalyzer: 0 Vital Signs - Vital Signs Vital signs refused: No Temperature: 98.4 F Temperature source: Oral Pulse Rate: 73 Respiratory Rate: 16 Blood Pressure: 164/94 BP Location: Right Arm Blood Pressure position: Sitting Urine Drug Screen - Test Device Lot number: [id number] Expiration date: 12/14/19 - Control Is test valid?: Yes - Results Drug screen NEGATIVE: No Urine drug screen results: THC-Marijuana, SUSAN-Cocaine Inpatient Rehab Admission - Rehab Decision to Admit Inpatient rehab admission?: No
[2019-03-31] MEDS ORDERED: METHOCARBAMOL 500 MG TABLET PO PRN (23:13)
[2019-03-31] MEDS ORDERED: BISMUTH SUBSALICYLATE 524 MG/30 ML UD PO PRN (23:13)
[2019-03-31] MEDS ORDERED: P-EPHED 60MG/TRIPROLIDI 2.5MG TABLET PO PRN (23:13)
[2019-03-31] MEDS ORDERED: MAGNESIUM HYDROX 2400MG/30ML ORAL SUSPENSION 30 ML CUP PO PRN (23:13)
[2019-03-31] MEDS ORDERED: MAG HYDROX/AL HYDROX/SIMETH 30 ML UNIT-DOSE CUP PO PRN (23:13)
[2019-03-31] MEDS ORDERED: MAGNESIUM CITRATE 300 ML BOTTLE PO PRN (23:13)
[2019-03-31] MEDS ORDERED: NICOTINE POLACRILEX 2 MG GUM BUC PRN (23:13)
[2019-03-31] MEDS ORDERED: IBUPROFEN 400 MG TABLET (FP) PO PRN ×2 (23:13)
[2019-03-31] MEDS ORDERED: guaiFENesin 200 MG/10 ML 10 ML UNIT-DOSE CUPS PO PRN (23:13)
[2019-03-31] MEDS ORDERED: ONDANSETRON *ODT* 4 MG TABLET SL PRN (23:13)
[2019-03-31] MEDS ORDERED: ACETAMINOPHEN 325 MG TABLET (FP) PO PRN (23:13)
[2019-03-31] MEDS ORDERED: DICYCLOMINE HCL 10 MG CAPSULE PO PRN (23:13)
[2019-03-31] MEDS ORDERED: MENTHOL/PHENOL 1 EACH UD MM PRN (23:13)
[2019-03-31] MEDS ORDERED: cloNIDine HCL 0.1 MG TABLET PO ONE (23:16)
[2019-04-01] MEDS: chlordiazePOXIDE HCL 25 MG CAPSULE PO SCH ×3 (00:42→14:28)
[2019-04-01] MEDS: MELATONIN 5 MG TABLETS PO PRN (00:42)
[2019-04-01 10:06] LABS: BILIRUBIN,TOTAL 0.2 mg/dL (0.2-1); CREATININE 1.2 mg/dL (0.55-1.3); TOT PROT 5.5 g/dl (6.4-8.2)
[2019-04-01] MEDS: NICOTINE 14 MG/24 HOURS TOPICAL PATCH TD SCH (10:12)
[2019-04-01] MEDS: PRENATAL VITAMINS W/ FOLIC ACID TABLET (FP) PO SCH (10:12)
[2019-04-01] MEDS: amLODIPine BESYLATE 10 MG TABLET (FP) PO SCH (10:12)
[2019-04-01] MEDS: chlordiazePOXIDE HCL 10 MG CAPSULE PO PRN (10:13)
[2019-04-01 10:15] LABS: HEMATOCRIT 39.3 % (35.4-49); HEMOGLOBIN 12.7 GM/dL (11.7-16.9); MCH 28.9 pg (25.7-33.7); MCHC 32.3 g/dl (32.0-35.9); MEAN CELL VOLUME 89.3 fl (80-96); MEAN PLT VOLUME 8.1 fl (7.5-11.1); PLATELET COUNT 322 K/MM3 (134-434); RDW 14.2 % (11.9-15.9); WHITE BLOOD COUNT 5.1 K/mm3 (4.0-10.0)
[2019-04-01 10:45] LABS: EPI CELLS 1.3 /HPF (0-5/HPF); HYALINE CASTS 2 /lpf (0-8); PH,URINE 6.5 (5.0-8.0); URINE APPEARANCE CLEAR; URINE BACTERIA 1.5 /hpf (NEGATIVE); URINE BILIRUBIN NEGATIVE (NEGATIVE); URINE COLOR YELLOW; URINE GLUCOSE (UA) NEGATIVE (NEGATIVE); URINE KETONE NEGATIVE (NEGATIVE); URINE LEUK ESTERASE 1+ (NEGATIVE); URINE NITRITE NEGATIVE (NEGATIVE); URINE PROTEIN NEGATIVE (NEGATIVE); URINE RBC 1 /hpf (0-4); URINE UROBILINOGEN 0.2 mg/dL (0.2-1.0); URINE WBC 7 /hpf (0-5)
--- NOTE | 2019-04-01 13:02 | PN ---
[facility] CIWA - CIWA Score Nausea/Vomitin-No Nausea/No Vomiting Muscle Tremors: 3 Anxiety: 4-Mod. Anxious/Guarded Agitation: 2 Paroxysmal Sweats: 1-Minimal Palms Moist Orientation: 0-Oriented Tacttile Disturbances: 0-None Auditory Disturbances: 0-None Visual Disturbances: 0-None Headache: 0-None Present CIWA-Ar Total Score: 10 S COWS - Scale Resting Pulse: 0= [place] 80 or Below Sweatin= Chills/Flushing Restless Observation: 0= Sits Still Pupil Size: 0= Normal to Room Light Bone or Joint Aches: 1= Mild Discomfort Runny Nose/ Eye Tearin= None GI Upset > 30mins: 0= None Tremor Observation of Outstretched Hands: 2= Slight Tremor Visible Yawning Observation: 0= None Anxiety or Irritability: 2=Irritable/Anxious Goose Flesh Skin: 0=Smooth Skin COWS Score: 6 S Progress Note (SOAP) Subjective: ANXIETY, SWEATS, CHILLS, FATIGUE. Objective: 04/01/19 13:02 Vital Signs 04/01/19 04/01/19 04/01/19 06:07 06:30 09:38 Temperature 98.4 F 96.7 F L Pulse Rate 74 73 Respiratory 18 18 18 Rate Blood Pressure 127/70 120/72 Laboratory Tests 04/01/19 04/01/19 04/01/19 07:45 07:45 08:45 WBC 5.1 RBC 4.40 Hgb 12.7 Hct 39.3 MCV 89.3 MCH 28.9 MCHC 32.3 RDW 14.2 Plt Count 322 MPV 8.1 Sodium 144 Potassium 4.0 Chloride 109 H Carbon Dioxide 29 Anion Gap 5 L BUN 14 Creatinine 1.2 Est GFR (CKD-EPI)AfAm 80.10 Est GFR (CKD-EPI)NonAf 69.11 Random Glucose 103 Calcium 9.0 Total Bilirubin 0.2 AST 18 ALT 25 Alkaline Phosphatase 96 Total Protein 5.5 L Albumin 3.0 L Urine Color Yellow Urine Appearance Clear Urine pH 6.5 Ur Specific [place] 1.021 Urine Protein Negative Urine Glucose (UA) Negative Urine Ketones Negative Urine Blood Negative Urine Nitrite Negative Urine Bilirubin Negative Urine Urobilinogen 0.2 Ur Leukocyte Esterase 1+ H Urine WBC (Auto) 7 Urine RBC (Auto) 1 Urine Casts (Auto) 2 U Epithel Cells (Auto) 1.3 Urine Bacteria (Auto) 1.5 Assessment: 04/01/19 13:03 WITHDRAWAL SX Plan: CONTINUE DETOX
[2019-04-01] MEDS: THIAMINE HCL 100 MG TABLET (FP) PO SCH (22:08)
[2019-04-01] MEDS: chlordiazePOXIDE 5 MG CAPSULE PO SCH (22:09)
[2019-04-02] MEDS: ACETAMINOPHEN 325 MG TABLET (FP) PO PRN (00:36)
[2019-04-02] MEDS: hydrOXYzine PAMOATE 25 MG CAPSULE (FP) PO PRN (00:36)
[2019-04-02] MEDS: chlordiazePOXIDE 5 MG CAPSULE PO SCH ×2 (05:32→13:12)
[2019-04-02] MEDS: chlordiazePOXIDE HCL 10 MG CAPSULE PO PRN (10:01)
[2019-04-02] MEDS: amLODIPine BESYLATE 10 MG TABLET (FP) PO SCH (10:01)
[2019-04-02] MEDS: PRENATAL VITAMINS W/ FOLIC ACID TABLET (FP) PO SCH (10:01)
[2019-04-02] MEDS: NICOTINE 14 MG/24 HOURS TOPICAL PATCH TD SCH (10:02)
--- NOTE | 2019-04-02 12:52 | PN ---
S CIWA - CIWA Score Nausea/Vomitin-No Nausea/No Vomiting Muscle Tremors: 2 Anxiety: 2 Agitation: 2 Paroxysmal Sweats: No Perspiration Orientation: 0-Oriented Tacttile Disturbances: 0-None Auditory Disturbances: 0-None Visual Disturbances: 0-None Headache: 0-None Present CIWA-Ar Total Score: 6 [facility] Progress Note (SOAP) Subjective: feeling better today hesitate to discuss aftercare with staff Objective: 04/02/19 12:54 Vital Signs Temperature 98.4 F 04/02/19 09:06 Pulse Rate 683 H 04/02/19 09:06 Respiratory Rate 16 04/02/19 09:06 Blood Pressure 146/79 04/02/19 09:06 O2 Sat by Pulse Oximetry (%) Laboratory Last Values WBC 5.1 K/mm3 (4.0-10.0) 04/01/19 07:45 RBC 4.40 M/mm3 (4.00-5.60) 04/01/19 07:45 Hgb 12.7 GM/dL (11.7-16.9) 04/01/19 07:45 Hct 39.3 % (35.4-49) 04/01/19 07:45 MCV 89.3 fl (80-96) 04/01/19 07:45 MCH 28.9 pg (25.7-33.7) 04/01/19 07:45 MCHC 32.3 g/dl (32.0-35.9) 04/01/19 07:45 RDW 14.2 % (11.9-15.9) 04/01/19 07:45 Plt Count 322 K/MM3 (134-434) 04/01/19 07:45 MPV 8.1 fl (7.5-11.1) 04/01/19 07:45 Sodium 144 mmol/L (136-145) 04/01/19 07:45 Potassium 4.0 mmol/L (3.5-5.1) 04/01/19 07:45 Chloride 109 mmol/L (98-107) H 04/01/19 07:45 Carbon Dioxide 29 mmol/L (21-32) 04/01/19 07:45 Anion Gap 5 MMOL/L (8-16) L 04/01/19 07:45 BUN 14 mg/dL (7-18) 04/01/19 07:45 Creatinine 1.2 mg/dL (0.55-1.3) 04/01/19 07:45 Est GFR (CKD-EPI)AfAm 80.10 04/01/19 07:45 Est GFR (CKD-EPI)NonAf 69.11 04/01/19 07:45 Random Glucose 103 mg/dL (74-106) 04/01/19 07:45 Calcium 9.0 mg/dL (8.5-10.1) 04/01/19 07:45 Total Bilirubin 0.2 mg/dL (0.2-1) 04/01/19 07:45 AST 18 U/L (15-37) 04/01/19 07:45 ALT 25 U/L (13-61) 04/01/19 07:45 Alkaline Phosphatase 96 U/L (45-117) 04/01/19 07:45 Total Protein 5.5 g/dl (6.4-8.2) L 04/01/19 07:45 Albumin 3.0 g/dl (3.4-5.0) L 04/01/19 07:45 Urine Color Yellow 04/01/19 08:45 Urine Appearance Clear 04/01/19 08:45 Urine pH 6.5 (5.0-8.0) 04/01/19 08:45 Ur Specific [place] 1.021 (1.010-1.035) 04/01/19 08:45 Urine Protein Negative (NEGATIVE) 04/01/19 08:45 Urine Glucose (UA) Negative (NEGATIVE) 04/01/19 08:45 Urine Ketones Negative (NEGATIVE) 04/01/19 08:45 Urine Blood Negative (NEGATIVE) 04/01/19 08:45 Urine Nitrite Negative (NEGATIVE) 04/01/19 08:45 Urine Bilirubin Negative (NEGATIVE) 04/01/19 08:45 Urine Urobilinogen 0.2 mg/dL (0.2-1.0) 04/01/19 08:45 Ur Leukocyte Esterase 1+ (NEGATIVE) H 04/01/19 08:45 Urine WBC (Auto) 7 /hpf (0-5) 04/01/19 08:45 Urine RBC (Auto) 1 /hpf (0-4) 04/01/19 08:45 Urine Casts (Auto) 2 /lpf (0-8) 04/01/19 08:45 U Epithel Cells (Auto) 1.3 /HPF (0-5/HPF) 04/01/19 08:45 Urine Bacteria (Auto) 1.5 /hpf (NEGATIVE) 04/01/19 08:45 RPR Titer Nonreactive (NONREACTIVE) 04/01/19 07:45 uti bactrim ds bid lab noted 04/02/19 12:57 Assessment: 04/02/19 12:58 alcohol withdrawal sx 04/02/19 12:58 uti Plan: continue detox bactrim ds bid
[2019-04-02] MEDS: SULFAMETHOXAZOLE/TRIMETHOPRIM 800MG/160MG D.S. TABLET PO SCH ×2 (13:12→21:12)
[2019-04-02] MEDS ORDERED: chlordiazePOXIDE HCL 10 MG CAPSULE PO PRN (21:00)
[2019-04-02] MEDS: THIAMINE HCL 100 MG TABLET (FP) PO SCH (21:12)
[2019-04-02] MEDS: MELATONIN 5 MG TABLETS PO PRN (21:12)
[2019-04-02] MEDS: chlordiazePOXIDE HCL 10 MG CAPSULE PO SCH (21:12)
[2019-04-03] MEDS: chlordiazePOXIDE HCL 10 MG CAPSULE PO SCH ×3 (04:11→21:08)
[2019-04-03] MEDS: hydrOXYzine PAMOATE 25 MG CAPSULE (FP) PO PRN (06:30)
[2019-04-03] MEDS: amLODIPine BESYLATE 10 MG TABLET (FP) PO SCH (10:17)
[2019-04-03] MEDS: NICOTINE 14 MG/24 HOURS TOPICAL PATCH TD SCH (10:17)
[2019-04-03] MEDS: PRENATAL VITAMINS W/ FOLIC ACID TABLET (FP) PO SCH (10:17)
[2019-04-03] MEDS: SULFAMETHOXAZOLE/TRIMETHOPRIM 800MG/160MG D.S. TABLET PO SCH ×2 (10:17→21:08)
--- NOTE | 2019-04-03 11:27 | PN ---
S CIWA - CIWA Score Nausea/Vomitin-Mild Nausea/No Vomiting Muscle Tremors: 1-None Visible, but [place] Anxiety: 0-No Anxiety, at Ease Agitation: 1-Slight > Activity Paroxysmal Sweats: No Perspiration Orientation: 0-Oriented Tacttile Disturbances: 0-None Auditory Disturbances: 0-None Visual Disturbances: 0-None Headache: 0-None Present CIWA-Ar Total Score: 3 [facility] Progress Note (SOAP) Subjective: feeling better social with peers discuss aftercare Objective: 04/03/19 11:26 Vital Signs Temperature 97.4 F L 04/03/19 09:18 Pulse Rate 103 H 04/03/19 09:18 Respiratory Rate 18 04/03/19 09:18 Blood Pressure 135/94 04/03/19 09:18 O2 Sat by Pulse Oximetry (%) Laboratory Last Values WBC 5.1 K/mm3 (4.0-10.0) 04/01/19 07:45 RBC 4.40 M/mm3 (4.00-5.60) 04/01/19 07:45 Hgb 12.7 GM/dL (11.7-16.9) 04/01/19 07:45 Hct 39.3 % (35.4-49) 04/01/19 07:45 MCV 89.3 fl (80-96) 04/01/19 07:45 MCH 28.9 pg (25.7-33.7) 04/01/19 07:45 MCHC 32.3 g/dl (32.0-35.9) 04/01/19 07:45 RDW 14.2 % (11.9-15.9) 04/01/19 07:45 Plt Count 322 K/MM3 (134-434) 04/01/19 07:45 MPV 8.1 fl (7.5-11.1) 04/01/19 07:45 Sodium 144 mmol/L (136-145) 04/01/19 07:45 Potassium 4.0 mmol/L (3.5-5.1) 04/01/19 07:45 Chloride 109 mmol/L (98-107) H 04/01/19 07:45 Carbon Dioxide 29 mmol/L (21-32) 04/01/19 07:45 Anion Gap 5 MMOL/L (8-16) L 04/01/19 07:45 BUN 14 mg/dL (7-18) 04/01/19 07:45 Creatinine 1.2 mg/dL (0.55-1.3) 04/01/19 07:45 Est GFR (CKD-EPI)AfAm 80.10 04/01/19 07:45 Est GFR (CKD-EPI)NonAf 69.11 04/01/19 07:45 Random Glucose 103 mg/dL (74-106) 04/01/19 07:45 Calcium 9.0 mg/dL (8.5-10.1) 04/01/19 07:45 Total Bilirubin 0.2 mg/dL (0.2-1) 04/01/19 07:45 AST 18 U/L (15-37) 04/01/19 07:45 ALT 25 U/L (13-61) 04/01/19 07:45 Alkaline Phosphatase 96 U/L (45-117) 04/01/19 07:45 Total Protein 5.5 g/dl (6.4-8.2) L 04/01/19 07:45 Albumin 3.0 g/dl (3.4-5.0) L 04/01/19 07:45 Urine Color Yellow 04/01/19 08:45 Urine Appearance Clear 04/01/19 08:45 Urine pH 6.5 (5.0-8.0) 04/01/19 08:45 Ur Specific [place] 1.021 (1.010-1.035) 04/01/19 08:45 Urine Protein Negative (NEGATIVE) 04/01/19 08:45 Urine Glucose (UA) Negative (NEGATIVE) 04/01/19 08:45 Urine Ketones Negative (NEGATIVE) 04/01/19 08:45 Urine Blood Negative (NEGATIVE) 04/01/19 08:45 Urine Nitrite Negative (NEGATIVE) 04/01/19 08:45 Urine Bilirubin Negative (NEGATIVE) 04/01/19 08:45 Urine Urobilinogen 0.2 mg/dL (0.2-1.0) 04/01/19 08:45 Ur Leukocyte Esterase 1+ (NEGATIVE) H 04/01/19 08:45 Urine WBC (Auto) 7 /hpf (0-5) 04/01/19 08:45 Urine RBC (Auto) 1 /hpf (0-4) 04/01/19 08:45 Urine Casts (Auto) 2 /lpf (0-8) 04/01/19 08:45 U Epithel Cells (Auto) 1.3 /HPF (0-5/HPF) 04/01/19 08:45 Urine Bacteria (Auto) 1.5 /hpf (NEGATIVE) 04/01/19 08:45 RPR Titer Nonreactive (NONREACTIVE) 04/01/19 07:45 lab noted continue bactrim ds bid for uti Assessment: 04/03/19 11:27 alcohol withdrawal sx Plan: continue detox
[2019-04-03] MEDS: THIAMINE HCL 100 MG TABLET (FP) PO SCH (21:08)
[2019-04-03] MEDS: MELATONIN 5 MG TABLETS PO PRN (21:08)
[2019-04-04] MEDS: hydrOXYzine PAMOATE 25 MG CAPSULE (FP) PO PRN (03:07)
[2019-04-04] MEDS: chlordiazePOXIDE HCL 10 MG CAPSULE PO SCH ×2 (05:18→11:23)
[2019-04-04 09:03] VITALS: BP 113/64; PULSE 72; TEMP 98.1
[2019-04-04] MEDS: SULFAMETHOXAZOLE/TRIMETHOPRIM 800MG/160MG D.S. TABLET PO SCH (10:07)
[2019-04-04] MEDS: amLODIPine BESYLATE 10 MG TABLET (FP) PO SCH (10:07)
[2019-04-04] MEDS: PRENATAL VITAMINS W/ FOLIC ACID TABLET (FP) PO SCH (10:07)
[2019-04-04] MEDS: NICOTINE 14 MG/24 HOURS TOPICAL PATCH TD SCH (10:07)
[2019-04-04] MEDS: ACETAMINOPHEN 325 MG TABLET (FP) PO PRN (12:49)
--- NOTE | 2019-04-04 13:33 | DS ---
[facility] Detox Discharge Summary Admission Date: 03/31/19 Discharge Date: 04/04/19 - History Present History: Alcohol Dependence Additional Comments: years old male admitted on 03/31/19 for alcohol withdrawal stabilization completed detox regimen aftercare [facility] - Physical Exam Results Vital Signs: Vital Signs Temperature 98.1 F 04/04/19 09:02 Pulse Rate 72 04/04/19 09:02 Respiratory Rate 18 04/04/19 09:02 Blood Pressure 113/64 04/04/19 09:02 O2 Sat by Pulse Oximetry (%) Pertinent Admission Physical Exam Findings: alcohol withdrawal sx Laboratory Last Values WBC 5.1 K/mm3 (4.0-10.0) 04/01/19 07:45 RBC 4.40 M/mm3 (4.00-5.60) 04/01/19 07:45 Hgb 12.7 GM/dL (11.7-16.9) 04/01/19 07:45 Hct 39.3 % (35.4-49) 04/01/19 07:45 MCV 89.3 fl (80-96) 04/01/19 07:45 MCH 28.9 pg (25.7-33.7) 04/01/19 07:45 MCHC 32.3 g/dl (32.0-35.9) 04/01/19 07:45 RDW 14.2 % (11.9-15.9) 04/01/19 07:45 Plt Count 322 K/MM3 (134-434) 04/01/19 07:45 MPV 8.1 fl (7.5-11.1) 04/01/19 07:45 Sodium 144 mmol/L (136-145) 04/01/19 07:45 Potassium 4.0 mmol/L (3.5-5.1) 04/01/19 07:45 Chloride 109 mmol/L (98-107) H 04/01/19 07:45 Carbon Dioxide 29 mmol/L (21-32) 04/01/19 07:45 Anion Gap 5 MMOL/L (8-16) L 04/01/19 07:45 BUN 14 mg/dL (7-18) 04/01/19 07:45 Creatinine 1.2 mg/dL (0.55-1.3) 04/01/19 07:45 Est GFR (CKD-EPI)AfAm 80.10 04/01/19 07:45 Est GFR (CKD-EPI)NonAf 69.11 04/01/19 07:45 Random Glucose 103 mg/dL (74-106) 04/01/19 07:45 Calcium 9.0 mg/dL (8.5-10.1) 04/01/19 07:45 Total Bilirubin 0.2 mg/dL (0.2-1) 04/01/19 07:45 AST 18 U/L (15-37) 04/01/19 07:45 ALT 25 U/L (13-61) 04/01/19 07:45 Alkaline Phosphatase 96 U/L (45-117) 04/01/19 07:45 Total Protein 5.5 g/dl (6.4-8.2) L 04/01/19 07:45 Albumin 3.0 g/dl (3.4-5.0) L 04/01/19 07:45 Urine Color Yellow 04/01/19 08:45 Urine Appearance Clear 04/01/19 08:45 Urine pH 6.5 (5.0-8.0) 04/01/19 08:45 Ur Specific [place] 1.021 (1.010-1.035) 04/01/19 08:45 Urine Protein Negative (NEGATIVE) 04/01/19 08:45 Urine Glucose (UA) Negative (NEGATIVE) 04/01/19 08:45 Urine Ketones Negative (NEGATIVE) 04/01/19 08:45 Urine Blood Negative (NEGATIVE) 04/01/19 08:45 Urine Nitrite Negative (NEGATIVE) 04/01/19 08:45 Urine Bilirubin Negative (NEGATIVE) 04/01/19 08:45 Urine Urobilinogen 0.2 mg/dL (0.2-1.0) 04/01/19 08:45 Ur Leukocyte Esterase 1+ (NEGATIVE) H 04/01/19 08:45 Urine WBC (Auto) 7 /hpf (0-5) 04/01/19 08:45 Urine RBC (Auto) 1 /hpf (0-4) 04/01/19 08:45 Urine Casts (Auto) 2 /lpf (0-8) 04/01/19 08:45 U Epithel Cells (Auto) 1.3 /HPF (0-5/HPF) 04/01/19 08:45 Urine Bacteria (Auto) 1.5 /hpf (NEGATIVE) 04/01/19 08:45 RPR Titer Nonreactive (NONREACTIVE) 04/01/19 07:45 lab noted repeat ua - Treatment Hospital Course: Detox Protocol Followed, Detoxed Safely, Responded well, Discharged Condition Good, Rehab Referral Accepted Patient has Accepted a Rehab Referral to: [facility] - Medication Discharge Medications: Ambulatory Orders Amlodipine Besylate [Norvasc -] 10 mg PO DAILY #30 tablet 04/02/19 Sulfamethoxazole/Trimethoprim [Bactrim DS -] 1 each PO BID #10 tablet 04/02/19 cloNIDine HCL [Catapres -] 0.1 mg PO BID #30 tablet 04/02/19 - Diagnosis (1) Alcohol dependence with uncomplicated withdrawal Current Visit: Yes Status: Acute (2) HTN (hypertension) Current Visit: Yes Status: Chronic Qualifiers: Hypertension type: essential hypertension Qualified Code(s): I10 - Essential (primary) hypertension (3) Nicotine dependence Current Visit: Yes Status: Acute Qualifiers: Nicotine product type: cigarettes Substance use status: in withdrawal Qualified Code(s): F17.213 - Nicotine dependence, cigarettes, with withdrawal (4) Substance induced mood disorder Current Visit: Yes Status: Suspected - AMA Did Patient Leave Against Medical Advice: No
[2019-04-05] MEDS ORDERED: chlordiazePOXIDE HCL 10 MG CAPSULE PO SCH (06:00)
== END 2019-04-04 14:00 | disposition other institution (70) | DRG 774 ==
LOC: YASAS 18:10 → Y3N 23:42
PROVIDERS: ADMIT Surgery; ATTEND Surgery
PROC: HZ2ZZZZ Detoxification Services for Substance Abuse Treatment (ICD-10-PCS; principal; 2019-03-31)
DX: F10.230 Alcohol dependence with withdrawal, uncomplicated (principal); F14.20 Cocaine dependence, uncomplicated; F12.20 Cannabis dependence, uncomplicated; F19.24 Other psychoactive substance dependence with psychoactive substance-induced mood disorder; I10 Essential (primary) hypertension; Z91.14 Patient's other noncompliance with medication regimen
CPT/HCPCS: 36415; 80053; 81003; 85027; 86593; J0735

== ENCOUNTER 2019-04-04 12:12 | Inpatient (IN) | payer OTHER ==
[2019-04-04] MEDS ORDERED: NICOTINE 14 MG/24 HOURS TOPICAL PATCH TD PRN (13:41)
[2019-04-04] MEDS ORDERED: MAGNESIUM HYDROX 2400MG/30ML ORAL SUSPENSION 30 ML CUP PO PRN (13:41)
[2019-04-04] MEDS ORDERED: MAGNESIUM CITRATE 300 ML BOTTLE PO PRN (13:41)
[2019-04-04] MEDS ORDERED: MAG HYDROX/AL HYDROX/SIMETH 30 ML UNIT-DOSE CUP PO PRN (13:41)
[2019-04-04] MEDS ORDERED: MENTHOL/PHENOL 1 EACH UD MM PRN (13:41)
[2019-04-04] MEDS ORDERED: LOPERAMIDE HCL 2 MG CAPSULE PO PRN (13:41)
[2019-04-04] MEDS ORDERED: NICOTINE POLACRILEX 2 MG GUM BUC PRN (13:41)
[2019-04-04] MEDS ORDERED: P-EPHED 60MG/TRIPROLIDI 2.5MG TABLET PO PRN (13:41)
[2019-04-04] MEDS ORDERED: guaiFENesin 200 MG/10 ML 10 ML UNIT-DOSE CUPS PO PRN (13:41)
--- NOTE | 2019-04-04 13:41 | HP ---
[facility] Rehab Assess/Revision - Admission History Ad[facility] to [facility] Date of Admission to Rehab: 04/04/19 - Vital signs Vital Signs: Vital Signs Period Temp Pulse Resp BP Sys/[place] Pulse Ox Last 24 Hr 97.6 F 103 18 139/85 - Findings Detox History & Physical reviewed: Yes Concur with findings: Yes Comments/Additional Findings: transferred from detox to rehab admission as per protocol Inpatient Rehab Admission - Rehab Decision to Admit Inpatient rehab admission?: Yes - Initial Determination Are CD services needed?: Yes Free of communicable disease: Yes Not in need of hospitalization: Yes - Rehab Admission Criteria Previous failed treatment: Yes Poor recovery environment: Yes Comorbidities: Yes Lacks judgement: No Patient is meeting Inpatient Rehab admission criteria:: Yes
[2019-04-04] MEDS: IBUPROFEN 400 MG TABLET (FP) PO PRN (15:54)
[2019-04-04] MEDS: CYCLOBENZAPRINE HCL 10 MG TABLET (FP) PO SCH ×2 (16:49→21:51)
[2019-04-04] MEDS: THIAMINE HCL 100 MG TABLET (FP) PO SCH (21:51)
[2019-04-04] MEDS: SULFAMETHOXAZOLE/TRIMETHOPRIM 800MG/160MG D.S. TABLET PO SCH (21:51)
[2019-04-04] MEDS ORDERED: MELATONIN 5 MG TABLETS PO PRN (22:00)
[2019-04-05] MEDS ORDERED: traZODone HCL 50 MG TABLET (FP) PO ONE (01:39)
[2019-04-05] MEDS: CYCLOBENZAPRINE HCL 10 MG TABLET (FP) PO SCH ×3 (06:21→21:49)
[2019-04-05] MEDS: amLODIPine BESYLATE 10 MG TABLET (FP) PO SCH (09:56)
[2019-04-05] MEDS: PRENATAL VITAMINS W/ FOLIC ACID TABLET (FP) PO SCH (09:56)
[2019-04-05] MEDS: SULFAMETHOXAZOLE/TRIMETHOPRIM 800MG/160MG D.S. TABLET PO SCH ×2 (09:56→21:49)
[2019-04-05] MEDS: hydrOXYzine PAMOATE 25 MG CAPSULE (FP) PO PRN (14:45)
[2019-04-05] MEDS: COLLOIDAL OATMEAL 1 BAR EACH TP PRN (15:28)
--- NOTE | 2019-04-05 16:04 | CONSULT ---
[facility] Psychiatric Consult - Data Date of interview: 04/05/19 Admission source: [facility] Identifying data: Patient is a 53 year old single male, father of two, domiciled , unemployed and denies receiving financial assistance. This is one of multiple admissions for patient. Patient admitted to for alcohol, cocaine and cannabis dependence. Substance Abuse History: Smoking Cessation. Smoking history: Current every day smoker. Have you smoked in the past 12 months: Yes. Aproximately how many cigarettes per day: 10. Cigars Per Day: 0. Hx Chewing Tobacco Use: No. Initiated information on smoking cessation: Yes. 'Breaking Loose' booklet given : 03/31/19. - Substance & Tx. History. Hx Alcohol Use: Yes. Hx Substance Use : Yes. Substance Use Type: Alcohol, Heroin. Hx Substance Use Treatment: Yes ( [facility]). - Substances abused. Heroin. Substance route: Inhalation. Frequency: Daily. Amount used: 4bags/day. Age of first use: 46. Date of last use: 03/31/19. Alcohol. Substance route: Oral. Frequency: 3-6 times per week. Amount used: 2pints of bk. Age of first use: 14. Date of last use : 03/30/19 Medical History: Hypertension. Psychiatric History: Patient denies h/o psychiatric hospitalization, outpatient care, and suicide attempt. Mr. duque reports difficulty sleeping. Patient requesting a higher dose of Melatonin. Physical/Sexual Abuse/Trauma History: denies. Mental Status Exam - Mental Status Exam Alert and Oriented to: Time, Place, Person Cognitive Function: Good Patient Appearance: Well Groomed Mood: Euthymic Affect: Appropriate Patient Behavior: Cooperative Speech Pattern: Appropriate Voice Loudness: Normal Thought Process: Goal Oriented Thought Disorder: Not Present Hallucinations: Denies Suicidal Ideation: Denies Homicidal Ideation: Denies Insight/Judgement: Poor Sleep: Poorly Appetite: Fair Muscle strength/Tone: Normal Gait/Station: Normal Psychiatric Findings - Problem List ([place] 1, 2,3) (1) Cocaine dependence Current Visit: Yes Status: Chronic Qualifiers: Substance use status: uncomplicated Qualified Code(s): F14.20 - Cocaine dependence, uncomplicated (2) Substance induced mood disorder Current Visit: Yes Status: Suspected (3) Substance-induced sleep disorder Current Visit: Yes Status: Acute (4) Cannabis dependence, uncomplicated Current Visit: Yes Status: Chronic - Initial Treatment Plan Initial Treatment Plan: Psychoeducation provided. Rehab in progress. Will discontinue Melatonin 5mg and order Melatonin 10mg HS prn. Benefits and side effects. Verbal consent given.
[2019-04-05] MEDS: MELATONIN 5 MG TABLETS PO PRN (21:49)
[2019-04-05] MEDS: THIAMINE HCL 100 MG TABLET (FP) PO SCH (21:49)
[2019-04-06] MEDS: CYCLOBENZAPRINE HCL 10 MG TABLET (FP) PO SCH ×3 (06:12→21:16)
[2019-04-06] MEDS: SULFAMETHOXAZOLE/TRIMETHOPRIM 800MG/160MG D.S. TABLET PO SCH ×2 (10:12→21:17)
[2019-04-06] MEDS: PRENATAL VITAMINS W/ FOLIC ACID TABLET (FP) PO SCH (10:12)
[2019-04-06] MEDS: amLODIPine BESYLATE 10 MG TABLET (FP) PO SCH (10:12)
[2019-04-06] MEDS: THIAMINE HCL 100 MG TABLET (FP) PO SCH (21:16)
[2019-04-06] MEDS: MELATONIN 5 MG TABLETS PO PRN (21:16)
[2019-04-06] MEDS: ACETAMINOPHEN 325 MG TABLET (FP) PO PRN (21:18)
[2019-04-07] MEDS: CYCLOBENZAPRINE HCL 10 MG TABLET (FP) PO SCH ×3 (06:01→21:53)
[2019-04-07] MEDS: SULFAMETHOXAZOLE/TRIMETHOPRIM 800MG/160MG D.S. TABLET PO SCH ×2 (09:55→21:53)
[2019-04-07] MEDS: amLODIPine BESYLATE 10 MG TABLET (FP) PO SCH (09:55)
[2019-04-07] MEDS: PRENATAL VITAMINS W/ FOLIC ACID TABLET (FP) PO SCH (09:55)
[2019-04-07] MEDS: COLLOIDAL OATMEAL 1 BAR EACH TP PRN (13:38)
[2019-04-07] MEDS: hydrOXYzine PAMOATE 25 MG CAPSULE (FP) PO PRN (21:53)
[2019-04-07] MEDS: THIAMINE HCL 100 MG TABLET (FP) PO SCH (21:53)
[2019-04-07] MEDS: MELATONIN 5 MG TABLETS PO PRN (21:54)
[2019-04-08] MEDS: CYCLOBENZAPRINE HCL 10 MG TABLET (FP) PO SCH ×3 (05:50→21:14)
[2019-04-08] MEDS: PRENATAL VITAMINS W/ FOLIC ACID TABLET (FP) PO SCH (09:48)
[2019-04-08] MEDS: SULFAMETHOXAZOLE/TRIMETHOPRIM 800MG/160MG D.S. TABLET PO SCH ×2 (09:48→21:14)
[2019-04-08] MEDS: amLODIPine BESYLATE 10 MG TABLET (FP) PO SCH (09:48)
[2019-04-08] MEDS: THIAMINE HCL 100 MG TABLET (FP) PO SCH (21:14)
[2019-04-09] MEDS: CYCLOBENZAPRINE HCL 10 MG TABLET (FP) PO SCH ×3 (05:47→21:55)
[2019-04-09] MEDS ORDERED: PT OWN MED DRAWER 7, Y5N ONE (09:05)
[2019-04-09] MEDS: PRENATAL VITAMINS W/ FOLIC ACID TABLET (FP) PO SCH (09:49)
[2019-04-09] MEDS: amLODIPine BESYLATE 10 MG TABLET (FP) PO SCH (09:49)
[2019-04-09] MEDS: SULFAMETHOXAZOLE/TRIMETHOPRIM 800MG/160MG D.S. TABLET PO SCH (09:49)
[2019-04-09] MEDS: MELATONIN 5 MG TABLETS PO PRN (21:55)
[2019-04-09] MEDS: THIAMINE HCL 100 MG TABLET (FP) PO SCH (21:55)
[2019-04-10] MEDS: CYCLOBENZAPRINE HCL 10 MG TABLET (FP) PO SCH ×3 (06:16→21:11)
[2019-04-10] MEDS: amLODIPine BESYLATE 10 MG TABLET (FP) PO SCH (09:48)
[2019-04-10] MEDS: PRENATAL VITAMINS W/ FOLIC ACID TABLET (FP) PO SCH (09:48)
[2019-04-10] MEDS: ACETAMINOPHEN 325 MG TABLET (FP) PO PRN (14:01)
[2019-04-10] MEDS: MELATONIN 5 MG TABLETS PO PRN (21:11)
[2019-04-10] MEDS: THIAMINE HCL 100 MG TABLET (FP) PO SCH (21:11)
[2019-04-11] MEDS: CYCLOBENZAPRINE HCL 10 MG TABLET (FP) PO SCH ×3 (06:26→21:38)
[2019-04-11] MEDS: PRENATAL VITAMINS W/ FOLIC ACID TABLET (FP) PO SCH (10:13)
[2019-04-11] MEDS: amLODIPine BESYLATE 10 MG TABLET (FP) PO SCH (10:13)
[2019-04-11] MEDS: ACETAMINOPHEN 325 MG TABLET (FP) PO PRN ×2 (14:19→21:39)
[2019-04-11] MEDS: THIAMINE HCL 100 MG TABLET (FP) PO SCH (21:38)
[2019-04-11] MEDS: MELATONIN 5 MG TABLETS PO PRN (21:38)
[2019-04-12] MEDS: CYCLOBENZAPRINE HCL 10 MG TABLET (FP) PO SCH (06:22)
[2019-04-12] MEDS: PRENATAL VITAMINS W/ FOLIC ACID TABLET (FP) PO SCH (09:53)
[2019-04-12] MEDS: amLODIPine BESYLATE 10 MG TABLET (FP) PO SCH (09:53)
[2019-04-12] MEDS: hydrOXYzine PAMOATE 25 MG CAPSULE (FP) PO PRN (11:36)
[2019-04-12] MEDS: ACETAMINOPHEN 325 MG TABLET (FP) PO PRN (11:37)
[2019-04-12] MEDS: IBUPROFEN 400 MG TABLET (FP) PO PRN ×2 (14:45→21:10)
[2019-04-12] MEDS: CYCLOBENZAPRINE HCL 10 MG TABLET (FP) PO PRN (14:46)
[2019-04-12] MEDS: MELATONIN 5 MG TABLETS PO PRN (21:10)
[2019-04-12] MEDS: THIAMINE HCL 100 MG TABLET (FP) PO SCH (21:10)
[2019-04-13] MEDS: amLODIPine BESYLATE 10 MG TABLET (FP) PO SCH (09:29)
[2019-04-13] MEDS: PRENATAL VITAMINS W/ FOLIC ACID TABLET (FP) PO SCH (09:29)
[2019-04-13] MEDS: CYCLOBENZAPRINE HCL 10 MG TABLET (FP) PO PRN ×2 (09:30→16:06)
[2019-04-13] MEDS: ACETAMINOPHEN 325 MG TABLET (FP) PO PRN (16:06)
[2019-04-13] MEDS: THIAMINE HCL 100 MG TABLET (FP) PO SCH (21:37)
[2019-04-13] MEDS: MELATONIN 5 MG TABLETS PO PRN (21:37)
[2019-04-14] MEDS: PRENATAL VITAMINS W/ FOLIC ACID TABLET (FP) PO SCH (09:56)
[2019-04-14] MEDS: amLODIPine BESYLATE 10 MG TABLET (FP) PO SCH (09:56)
[2019-04-14] MEDS: CYCLOBENZAPRINE HCL 10 MG TABLET (FP) PO PRN (13:59)
[2019-04-14] MEDS: MELATONIN 5 MG TABLETS PO PRN (21:09)
[2019-04-14] MEDS: THIAMINE HCL 100 MG TABLET (FP) PO SCH (21:09)
[2019-04-15] MEDS: amLODIPine BESYLATE 10 MG TABLET (FP) PO SCH (09:44)
[2019-04-15] MEDS: PRENATAL VITAMINS W/ FOLIC ACID TABLET (FP) PO SCH (09:44)
[2019-04-15] MEDS: CYCLOBENZAPRINE HCL 10 MG TABLET (FP) PO PRN (15:14)
[2019-04-15] MEDS: MELATONIN 5 MG TABLETS PO PRN (21:36)
[2019-04-15] MEDS: THIAMINE HCL 100 MG TABLET (FP) PO SCH (21:36)
[2019-04-16] MEDS: amLODIPine BESYLATE 10 MG TABLET (FP) PO SCH (09:44)
[2019-04-16] MEDS: PRENATAL VITAMINS W/ FOLIC ACID TABLET (FP) PO SCH (09:44)
[2019-04-16] MEDS: CYCLOBENZAPRINE HCL 10 MG TABLET (FP) PO PRN ×2 (13:58→21:08)
[2019-04-16] MEDS: THIAMINE HCL 100 MG TABLET (FP) PO SCH (21:07)
[2019-04-16] MEDS: MELATONIN 5 MG TABLETS PO PRN (21:07)
[2019-04-17] MEDS: PRENATAL VITAMINS W/ FOLIC ACID TABLET (FP) PO SCH (09:30)
[2019-04-17] MEDS: amLODIPine BESYLATE 10 MG TABLET (FP) PO SCH (09:30)
[2019-04-17] MEDS: CYCLOBENZAPRINE HCL 10 MG TABLET (FP) PO PRN ×2 (14:40→21:30)
[2019-04-17] MEDS: COLLOIDAL OATMEAL 1 BAR EACH TP PRN (15:56)
[2019-04-17] MEDS: ACETAMINOPHEN 325 MG TABLET (FP) PO PRN (19:05)
[2019-04-17] MEDS: THIAMINE HCL 100 MG TABLET (FP) PO SCH (21:29)
[2019-04-17] MEDS: MELATONIN 5 MG TABLETS PO PRN (21:30)
[2019-04-18] MEDS: CYCLOBENZAPRINE HCL 10 MG TABLET (FP) PO PRN (09:34)
[2019-04-18] MEDS: PRENATAL VITAMINS W/ FOLIC ACID TABLET (FP) PO SCH (09:34)
[2019-04-18] MEDS: amLODIPine BESYLATE 10 MG TABLET (FP) PO SCH (09:34)
[2019-04-18] MEDS: hydrOXYzine PAMOATE 25 MG CAPSULE (FP) PO PRN ×2 (14:33→21:42)
[2019-04-18] MEDS: MELATONIN 5 MG TABLETS PO PRN (21:42)
[2019-04-18] MEDS: THIAMINE HCL 100 MG TABLET (FP) PO SCH (21:42)
[2019-04-19] MEDS: PRENATAL VITAMINS W/ FOLIC ACID TABLET (FP) PO SCH (09:19)
[2019-04-19] MEDS: amLODIPine BESYLATE 10 MG TABLET (FP) PO SCH (09:19)
[2019-04-19] MEDS: CYCLOBENZAPRINE HCL 10 MG TABLET (FP) PO PRN (21:13)
[2019-04-19] MEDS: hydrOXYzine PAMOATE 25 MG CAPSULE (FP) PO PRN (21:13)
[2019-04-19] MEDS: MELATONIN 5 MG TABLETS PO PRN (21:13)
[2019-04-19] MEDS: THIAMINE HCL 100 MG TABLET (FP) PO SCH (21:13)
[2019-04-20] MEDS: PRENATAL VITAMINS W/ FOLIC ACID TABLET (FP) PO SCH (09:34)
[2019-04-20] MEDS: amLODIPine BESYLATE 10 MG TABLET (FP) PO SCH (09:35)
[2019-04-20] MEDS: CYCLOBENZAPRINE HCL 10 MG TABLET (FP) PO PRN (15:41)
[2019-04-20] MEDS: THIAMINE HCL 100 MG TABLET (FP) PO SCH (21:05)
[2019-04-20] MEDS: MELATONIN 5 MG TABLETS PO PRN (21:05)
[2019-04-20] MEDS: hydrOXYzine PAMOATE 25 MG CAPSULE (FP) PO PRN (21:06)
[2019-04-21] MEDS: amLODIPine BESYLATE 10 MG TABLET (FP) PO SCH (09:07)
[2019-04-21] MEDS: PRENATAL VITAMINS W/ FOLIC ACID TABLET (FP) PO SCH (09:07)
[2019-04-21] MEDS: CYCLOBENZAPRINE HCL 10 MG TABLET (FP) PO PRN ×2 (13:41→21:52)
[2019-04-21] MEDS: hydrOXYzine PAMOATE 25 MG CAPSULE (FP) PO PRN (21:52)
[2019-04-21] MEDS: MELATONIN 5 MG TABLETS PO PRN (21:53)
[2019-04-21] MEDS: THIAMINE HCL 100 MG TABLET (FP) PO SCH (21:53)
[2019-04-21] MEDS: ACETAMINOPHEN 325 MG TABLET (FP) PO PRN (21:53)
[2019-04-22] MEDS ORDERED: PT OWN MED DRAWER 7, Y5N ONE (08:59)
[2019-04-22] MEDS: PRENATAL VITAMINS W/ FOLIC ACID TABLET (FP) PO SCH (10:33)
[2019-04-22] MEDS: amLODIPine BESYLATE 10 MG TABLET (FP) PO SCH (10:33)
[2019-04-22] MEDS: CYCLOBENZAPRINE HCL 10 MG TABLET (FP) PO PRN ×2 (15:13→21:15)
[2019-04-22] MEDS: IBUPROFEN 400 MG TABLET (FP) PO PRN (15:13)
[2019-04-22] MEDS: hydrOXYzine PAMOATE 25 MG CAPSULE (FP) PO PRN (21:15)
[2019-04-22] MEDS: THIAMINE HCL 100 MG TABLET (FP) PO SCH (21:15)
[2019-04-22] MEDS: MELATONIN 5 MG TABLETS PO PRN (21:15)
[2019-04-22] MEDS: ACETAMINOPHEN 325 MG TABLET (FP) PO PRN (21:15)
[2019-04-23] MEDS: amLODIPine BESYLATE 10 MG TABLET (FP) PO SCH (09:41)
[2019-04-23] MEDS: PRENATAL VITAMINS W/ FOLIC ACID TABLET (FP) PO SCH (09:41)
[2019-04-23] MEDS: CYCLOBENZAPRINE HCL 10 MG TABLET (FP) PO PRN ×2 (15:04→21:46)
[2019-04-23] MEDS: hydrOXYzine PAMOATE 25 MG CAPSULE (FP) PO PRN (21:46)
[2019-04-23] MEDS: THIAMINE HCL 100 MG TABLET (FP) PO SCH (21:46)
[2019-04-23] MEDS: MELATONIN 5 MG TABLETS PO PRN (21:46)
[2019-04-24] MEDS: PRENATAL VITAMINS W/ FOLIC ACID TABLET (FP) PO SCH (09:32)
[2019-04-24] MEDS: amLODIPine BESYLATE 10 MG TABLET (FP) PO SCH (09:32)
[2019-04-24] MEDS: CYCLOBENZAPRINE HCL 10 MG TABLET (FP) PO PRN ×2 (14:14→21:53)
[2019-04-24] MEDS: MELATONIN 5 MG TABLETS PO PRN (21:53)
[2019-04-24] MEDS: THIAMINE HCL 100 MG TABLET (FP) PO SCH (21:53)
[2019-04-24] MEDS: hydrOXYzine PAMOATE 25 MG CAPSULE (FP) PO PRN (21:53)
[2019-04-25] MEDS: amLODIPine BESYLATE 10 MG TABLET (FP) PO SCH (10:13)
[2019-04-25] MEDS: PRENATAL VITAMINS W/ FOLIC ACID TABLET (FP) PO SCH (10:13)
[2019-04-25] MEDS: hydrOXYzine PAMOATE 25 MG CAPSULE (FP) PO PRN ×2 (10:14→21:07)
[2019-04-25] MEDS: CYCLOBENZAPRINE HCL 10 MG TABLET (FP) PO PRN ×2 (13:12→21:07)
[2019-04-25] MEDS: THIAMINE HCL 100 MG TABLET (FP) PO SCH (21:06)
[2019-04-25] MEDS: MELATONIN 5 MG TABLETS PO PRN (21:07)
[2019-04-26] MEDS: amLODIPine BESYLATE 10 MG TABLET (FP) PO SCH (10:23)
[2019-04-26] MEDS: PRENATAL VITAMINS W/ FOLIC ACID TABLET (FP) PO SCH (10:23)
[2019-04-26] MEDS: CYCLOBENZAPRINE HCL 10 MG TABLET (FP) PO PRN ×2 (14:13→21:57)
[2019-04-26] MEDS: hydrOXYzine PAMOATE 25 MG CAPSULE (FP) PO PRN ×2 (14:14→21:57)
[2019-04-26] MEDS: THIAMINE HCL 100 MG TABLET (FP) PO SCH (21:57)
[2019-04-26] MEDS: MELATONIN 5 MG TABLETS PO PRN (21:57)
[2019-04-27] MEDS ORDERED: PT OWN MED DRAWER 7, Y5N ONE (10:10)
[2019-04-27] MEDS: PRENATAL VITAMINS W/ FOLIC ACID TABLET (FP) PO SCH (10:17)
[2019-04-27] MEDS: amLODIPine BESYLATE 10 MG TABLET (FP) PO SCH (10:17)
[2019-04-27] MEDS: CYCLOBENZAPRINE HCL 10 MG TABLET (FP) PO PRN ×2 (13:21→21:22)
[2019-04-27] MEDS: hydrOXYzine PAMOATE 25 MG CAPSULE (FP) PO PRN ×2 (13:21→21:22)
[2019-04-27] MEDS: THIAMINE HCL 100 MG TABLET (FP) PO SCH (21:21)
[2019-04-27] MEDS: MELATONIN 5 MG TABLETS PO PRN (21:22)
[2019-04-28] MEDS: amLODIPine BESYLATE 10 MG TABLET (FP) PO SCH (10:03)
[2019-04-28] MEDS: PRENATAL VITAMINS W/ FOLIC ACID TABLET (FP) PO SCH (10:03)
[2019-04-28] MEDS: CYCLOBENZAPRINE HCL 10 MG TABLET (FP) PO PRN ×3 (10:04→21:10)
[2019-04-28] MEDS: hydrOXYzine PAMOATE 25 MG CAPSULE (FP) PO PRN ×2 (13:58→21:11)
[2019-04-28] MEDS: THIAMINE HCL 100 MG TABLET (FP) PO SCH (21:10)
[2019-04-28] MEDS: MELATONIN 5 MG TABLETS PO PRN (21:10)
[2019-04-29] MEDS: amLODIPine BESYLATE 10 MG TABLET (FP) PO SCH (09:33)
[2019-04-29] MEDS: PRENATAL VITAMINS W/ FOLIC ACID TABLET (FP) PO SCH (09:33)
[2019-04-29] MEDS: CYCLOBENZAPRINE HCL 10 MG TABLET (FP) PO PRN ×2 (11:45→21:07)
[2019-04-29] MEDS: hydrOXYzine PAMOATE 25 MG CAPSULE (FP) PO PRN ×2 (11:45→21:08)
[2019-04-29] MEDS: MELATONIN 5 MG TABLETS PO PRN (21:07)
[2019-04-29] MEDS: THIAMINE HCL 100 MG TABLET (FP) PO SCH (21:07)
[2019-04-30] MEDS: hydrOXYzine PAMOATE 25 MG CAPSULE (FP) PO PRN ×3 (09:20→18:36)
[2019-04-30] MEDS: amLODIPine BESYLATE 10 MG TABLET (FP) PO SCH (09:20)
[2019-04-30] MEDS: PRENATAL VITAMINS W/ FOLIC ACID TABLET (FP) PO SCH (09:20)
[2019-04-30] MEDS: CYCLOBENZAPRINE HCL 10 MG TABLET (FP) PO PRN ×2 (09:20→18:36)
[2019-04-30] MEDS: THIAMINE HCL 100 MG TABLET (FP) PO SCH (21:12)
[2019-04-30] MEDS: MELATONIN 5 MG TABLETS PO PRN (21:13)
[2019-05-01] MEDS: IBUPROFEN 400 MG TABLET (FP) PO PRN (09:15)
[2019-05-01] MEDS: amLODIPine BESYLATE 10 MG TABLET (FP) PO SCH (09:15)
[2019-05-01] MEDS: PRENATAL VITAMINS W/ FOLIC ACID TABLET (FP) PO SCH (09:15)
[2019-05-01] MEDS: hydrOXYzine PAMOATE 25 MG CAPSULE (FP) PO PRN ×3 (09:15→19:06)
[2019-05-01] MEDS: CYCLOBENZAPRINE HCL 10 MG TABLET (FP) PO PRN (14:17)
[2019-05-01] MEDS: ACETAMINOPHEN 325 MG TABLET (FP) PO PRN (19:06)
[2019-05-01] MEDS: THIAMINE HCL 100 MG TABLET (FP) PO SCH (21:51)
[2019-05-01] MEDS: MELATONIN 5 MG TABLETS PO PRN (21:51)
[2019-05-02 07:09] VITALS: BP 117/72; PULSE 91; TEMP 98.1
--- NOTE | 2019-05-02 08:38 | PN ---
[facility] Progress Note (SOAP) Subjective: patient to be discharged today. Objective: No neurological deficits noted. 05/02/19 08:33 Vital Signs (72 hours) 04/29/19 04/30/19 04/30/19 09:30 00:30 03:30 Temperature Pulse Rate 99 H Respiratory 18 16 16 Rate Blood Pressure 144/88 04/30/19 04/30/19 05/01/19 06:49 09:30 00:30 Temperature 98.7 F Pulse Rate 87 95 H Respiratory 17 18 18 Rate Blood Pressure 116/80 129/88 05/01/19 05/01/19 05/01/19 03:30 06:57 09:30 Temperature 98.3 F Pulse Rate 89 99 H Respiratory 18 18 18 Rate Blood Pressure 141/77 115/68 05/02/19 05/02/19 05/02/19 00:30 03:30 07:09 Temperature 98.1 F Pulse Rate 91 H Respiratory 18 18 18 Rate Blood Pressure 117/72 05/02/19 08:47 Assessment: medically stable for discharge Discharge dx: ETOH dependence Cocaine dependence HTN opioid dependence cannabis dependence 05/02/19 08:47 Plan: Aftercare at [facility] or [facility], patient will decide. Prescriptions transmitted to the pharmacy.
[2019-05-02] MEDS: PRENATAL VITAMINS W/ FOLIC ACID TABLET (FP) PO SCH (09:01)
[2019-05-02] MEDS: amLODIPine BESYLATE 10 MG TABLET (FP) PO SCH (09:01)
== END 2019-05-02 09:05 | disposition home or self-care (01) | DRG 772 ==
LOC: YASAS 12:12 → Y3W 12:22
PROVIDERS: ADMIT Neuromusculoskeletal Medicine & OMM; ATTEND Neuromusculoskeletal Medicine & OMM
PROC: HZ42ZZZ Group Counseling for Substance Abuse Treatment, Cognitive-Behavioral (ICD-10-PCS; principal; 2019-04-04)
DX: F11.20 Opioid dependence, uncomplicated (principal); F10.20 Alcohol dependence, uncomplicated; F14.20 Cocaine dependence, uncomplicated; F12.20 Cannabis dependence, uncomplicated; F19.282 Other psychoactive substance dependence with psychoactive substance-induced sleep disorder; F19.24 Other psychoactive substance dependence with psychoactive substance-induced mood disorder; I10 Essential (primary) hypertension

== ENCOUNTER 2021-04-15 12:35 | Inpatient (IN) | payer OTHER ==
[2021-04-15 13:18] VITALS: BMI 25.5
[2021-04-15] MEDS ORDERED: MAGNESIUM HYDROX 2400MG/30ML ORAL SUSPENSION 30 ML CUP PO PRN (14:49)
[2021-04-15] MEDS ORDERED: BISMUTH SUBSALICYLATE 524 MG/30 ML PO PRN (14:49)
[2021-04-15] MEDS ORDERED: IBUPROFEN 400 MG TABLET (FP) PO PRN (14:49)
[2021-04-15] MEDS ORDERED: ACETAMINOPHEN 325 MG TABLET (FP) PO PRN ×2 (14:49)
[2021-04-15] MEDS ORDERED: MAG HYDROX/AL HYDROX/SIMETH 30 ML UNIT-DOSE CUP PO PRN (14:49)
[2021-04-15] MEDS ORDERED: MAGNESIUM CITRATE 300 ML BOTTLE PO PRN (14:49)
[2021-04-15] MEDS ORDERED: NICOTINE POLACRILEX 2 MG GUM BUC PRN (14:49)
[2021-04-15] MEDS ORDERED: MENTHOL/PHENOL 1 EACH UD MM PRN (14:49)
[2021-04-15] MEDS ORDERED: ONDANSETRON *ODT* 4 MG TABLET SL PRN (14:49)
[2021-04-15] MEDS ORDERED: METHADONE HCL 10 MG TABLET (FOR DETOX USE ONLY) PO ONE (15:15)
[2021-04-15] MEDS: METHOCARBAMOL 500 MG TABLET PO PRN (15:46)
[2021-04-15] MEDS: cloNIDine HCL 0.1 MG TABLET PO PRN (15:46)
[2021-04-15] MEDS: PRENATAL VITAMINS W/ FOLIC ACID TABLET (FP) PO SCH (15:50)
[2021-04-15] MEDS: hydrOXYzine PAMOATE 25 MG CAPSULE (FP) PO SCH ×2 (16:59→21:33)
[2021-04-15] MEDS ORDERED: MASKS NR ONE (19:20)
[2021-04-15] MEDS: MELATONIN 5 MG TABLETS PO SCH (21:33)
[2021-04-15] MEDS: THIAMINE HCL 100 MG TABLET (FP) PO SCH (21:33)
[2021-04-16] MEDS: hydrOXYzine PAMOATE 25 MG CAPSULE (FP) PO SCH ×5 (05:47→21:06)
[2021-04-16] MEDS: metFORMIN HCL 500 MG TABLET (FP) PO SCH (06:05)
[2021-04-16] MEDS ORDERED: METHADONE (DETOX) 20 MG, METHADONE (DETOX) 5 MG PO ONE (10:00)
[2021-04-16 10:01] LABS: HEMOGLOBIN 12.3 GM/dL (11.7-16.9); MCH 29.9 pg (25.7-33.7); MCHC 33.2 g/dl (32.0-35.9); MEAN CELL VOLUME 90.1 fl (80-96); MEAN PLT VOLUME 8.2 fl (7.5-11.1); PLATELET COUNT 274 K/MM3 (134-434); RBC 4.11 M/mm3 (4.00-5.60); RDW 14.4 % (11.9-15.9); WHITE BLOOD COUNT 6.3 K/mm3 (4.0-10.0)
[2021-04-16 10:04] LABS: ALBUMIN 3.1 g/dl (3.4-5.0); BLOOD UREA NITROGEN 13.4 mg/dL (7-18)
[2021-04-16 10:07] LABS: CALCIUM 8.8 mg/dL (8.5-10.1)
[2021-04-16] MEDS ORDERED: METHADONE HCL 5 MG TABLET (FOR DETOX USE ONLY) ONE (10:07)
[2021-04-16] MEDS ORDERED: METHADONE HCL 10 MG TABLET (FOR DETOX USE ONLY) ONE (10:07)
[2021-04-16 10:09] LABS: BILIRUBIN,TOTAL 0.3 mg/dL (0.2-1); TOT PROT 5.8 g/dl (6.4-8.2)
[2021-04-16] MEDS: METHOCARBAMOL 500 MG TABLET PO PRN (10:14)
[2021-04-16] MEDS: amLODIPine BESYLATE 10 MG TABLET (FP) PO SCH (10:14)
[2021-04-16] MEDS: PRENATAL VITAMINS W/ FOLIC ACID TABLET (FP) PO SCH (10:14)
[2021-04-16] MEDS: cloNIDine HCL 0.1 MG TABLET PO PRN (10:14)
[2021-04-16] MEDS: THIAMINE HCL 100 MG TABLET (FP) PO SCH (21:06)
[2021-04-16] MEDS: MELATONIN 5 MG TABLETS PO SCH (21:07)
[2021-04-17] MEDS: cloNIDine HCL 0.1 MG TABLET PO PRN (00:52)
[2021-04-17] MEDS: METHOCARBAMOL 500 MG TABLET PO PRN (00:52)
[2021-04-17] MEDS: hydrOXYzine PAMOATE 25 MG CAPSULE (FP) PO SCH (05:31)
[2021-04-17] MEDS: metFORMIN HCL 500 MG TABLET (FP) PO SCH (06:39)
[2021-04-17] MEDS: amLODIPine BESYLATE 10 MG TABLET (FP) PO SCH (09:58)
[2021-04-17] MEDS: PRENATAL VITAMINS W/ FOLIC ACID TABLET (FP) PO SCH (09:58)
[2021-04-17] MEDS: diazePAM 5 MG TABLET PO PRN ×3 (09:59→23:37)
[2021-04-17] MEDS ORDERED: METHADONE HCL 10 MG TABLET (FOR DETOX USE ONLY) PO ONE (10:00)
[2021-04-17] MEDS: HYDROCHLOROTHIAZIDE 12.5 MG CAPSULE (FP) PO SCH (12:27)
[2021-04-17] MEDS: MELATONIN 5 MG TABLETS PO SCH ×2 (22:30→22:34)
[2021-04-17] MEDS: THIAMINE HCL 100 MG TABLET (FP) PO SCH ×2 (22:30→22:35)
[2021-04-18] MEDS: diazePAM 5 MG TABLET PO PRN ×3 (05:56→20:29)
[2021-04-18] MEDS: metFORMIN HCL 500 MG TABLET (FP) PO SCH (06:10)
[2021-04-18] MEDS ORDERED: METHADONE (DETOX) 10 MG, METHADONE (DETOX) 5 MG PO ONE (10:00)
[2021-04-18] MEDS ORDERED: METHADONE HCL 10 MG TABLET (FOR DETOX USE ONLY) ONE (10:24)
[2021-04-18] MEDS ORDERED: METHADONE HCL 5 MG TABLET (FOR DETOX USE ONLY) ONE (10:24)
[2021-04-18] MEDS: amLODIPine BESYLATE 10 MG TABLET (FP) PO SCH (10:25)
[2021-04-18] MEDS: hydrOXYzine PAMOATE 25 MG CAPSULE (FP) PO PRN ×2 (10:25→22:21)
[2021-04-18] MEDS: HYDROCHLOROTHIAZIDE 12.5 MG CAPSULE (FP) PO SCH (10:25)
[2021-04-18] MEDS: PRENATAL VITAMINS W/ FOLIC ACID TABLET (FP) PO SCH (10:25)
[2021-04-18] MEDS: METHOCARBAMOL 500 MG TABLET PO PRN (10:26)
[2021-04-18] MEDS: THIAMINE HCL 100 MG TABLET (FP) PO SCH (22:21)
[2021-04-18] MEDS: MELATONIN 5 MG TABLETS PO SCH (22:22)
[2021-04-19 06:08] LABS: SARS-CoV-2 NAA Not Detected (Not Detected)
[2021-04-19] MEDS: metFORMIN HCL 500 MG TABLET (FP) PO SCH (06:16)
[2021-04-19] MEDS: diazePAM 5 MG TABLET PO PRN ×3 (06:17→19:53)
[2021-04-19] MEDS ORDERED: METHADONE HCL 10 MG TABLET (FOR DETOX USE ONLY) PO ONE (10:00)
[2021-04-19] MEDS: PRENATAL VITAMINS W/ FOLIC ACID TABLET (FP) PO SCH (10:06)
[2021-04-19] MEDS: HYDROCHLOROTHIAZIDE 12.5 MG CAPSULE (FP) PO SCH (10:07)
[2021-04-19] MEDS: amLODIPine BESYLATE 10 MG TABLET (FP) PO SCH (10:07)
[2021-04-19] MEDS: hydrOXYzine PAMOATE 25 MG CAPSULE (FP) PO PRN (17:39)
[2021-04-19] MEDS: THIAMINE HCL 100 MG TABLET (FP) PO SCH (22:56)
[2021-04-19] MEDS: MELATONIN 5 MG TABLETS PO SCH (22:56)
[2021-04-20] MEDS ORDERED: METHADONE HCL 5 MG TABLET (FOR DETOX USE ONLY) PO ONE (06:00)
[2021-04-20] MEDS: metFORMIN HCL 500 MG TABLET (FP) PO SCH (07:27)
[2021-04-20] MEDS: amLODIPine BESYLATE 10 MG TABLET (FP) PO SCH (09:22)
[2021-04-20] MEDS: HYDROCHLOROTHIAZIDE 12.5 MG CAPSULE (FP) PO SCH (09:22)
[2021-04-20] MEDS: PRENATAL VITAMINS W/ FOLIC ACID TABLET (FP) PO SCH (09:22)
[2021-04-20] MEDS ORDERED: MAGNESIUM CITRATE 300 ML BOTTLE PO PRN (12:03)
[2021-04-20] MEDS ORDERED: MAG HYDROX/AL HYDROX/SIMETH 30 ML UNIT-DOSE CUP PO PRN (12:03)
[2021-04-20] MEDS ORDERED: P-EPHED 60MG/TRIPROLIDI 2.5MG TABLET PO PRN (12:03)
[2021-04-20] MEDS ORDERED: guaiFENesin 200 MG/10 ML 10 ML UNIT-DOSE CUPS PO PRN (12:03)
[2021-04-20] MEDS ORDERED: MAGNESIUM HYDROX 2400MG/30ML ORAL SUSPENSION 30 ML CUP PO PRN (12:03)
[2021-04-20] MEDS ORDERED: IBUPROFEN 400 MG TABLET (FP) PO PRN (12:03)
[2021-04-20] MEDS ORDERED: MENTHOL/PHENOL 1 EACH UD MM PRN (12:03)
[2021-04-20] MEDS ORDERED: ACETAMINOPHEN 325 MG TABLET (FP) PO PRN (12:03)
[2021-04-20] MEDS ORDERED: LOPERAMIDE HCL 2 MG CAPSULE PO PRN (12:03)
[2021-04-20] MEDS ORDERED: NICOTINE POLACRILEX 2 MG GUM BUC PRN (12:03)
[2021-04-20 13:25] VITALS: BP 132/76; PULSE 91; TEMP 97.1
[2021-04-20] MEDS ORDERED: hydrOXYzine PAMOATE 25 MG CAPSULE (FP) PO SCH (14:00)
[2021-04-20] MEDS ORDERED: THIAMINE HCL 100 MG TABLET (FP) PO SCH (22:00)
[2021-04-20] MEDS ORDERED: MELATONIN 5 MG TABLETS PO SCH (22:00)
[2021-04-21] MEDS ORDERED: PRENATAL VITAMINS W/ FOLIC ACID TABLET (FP) PO SCH (10:00)
[2021-04-21] MEDS ORDERED: NICOTINE 7 MG/24 HOURS TOPICAL PATCH TD SCH (10:00)
== END 2021-04-20 16:18 | disposition other institution (70) | DRG 773 ==
LOC: YASAS 12:35 → Y3N 14:21
PROVIDERS: ADMIT Allergy & Immunology; ATTEND Allergy & Immunology
PROC: HZ2ZZZZ Detoxification Services for Substance Abuse Treatment (ICD-10-PCS; principal; 2021-04-15)
DX: F11.23 Opioid dependence with withdrawal (principal); F10.230 Alcohol dependence with withdrawal, uncomplicated; F14.20 Cocaine dependence, uncomplicated; F12.20 Cannabis dependence, uncomplicated; F17.210 Nicotine dependence, cigarettes, uncomplicated; I10 Essential (primary) hypertension; E11.9 Type 2 diabetes mellitus without complications; Z79.84 Long term (current) use of oral hypoglycemic drugs
CPT/HCPCS: 36415; 80053; 85027; 86780; C9803; J0735; U0003; U0005

== ENCOUNTER 2021-04-20 16:24 | Inpatient (IN) | payer OTHER ==
[2021-04-20] MEDS ORDERED: LOPERAMIDE HCL 2 MG CAPSULE PO PRN (18:08)
[2021-04-20] MEDS ORDERED: guaiFENesin 200 MG/10 ML 10 ML UNIT-DOSE CUPS PO PRN (18:08)
[2021-04-20] MEDS ORDERED: MAGNESIUM HYDROX 2400MG/30ML ORAL SUSPENSION 30 ML CUP PO PRN (18:08)
[2021-04-20] MEDS ORDERED: P-EPHED 60MG/TRIPROLIDI 2.5MG TABLET PO PRN (18:08)
[2021-04-20] MEDS ORDERED: ACETAMINOPHEN 325 MG TABLET (FP) PO PRN (18:08)
[2021-04-20] MEDS ORDERED: NICOTINE POLACRILEX 2 MG GUM BUC PRN (18:08)
[2021-04-20] MEDS ORDERED: MENTHOL/PHENOL 1 EACH UD MM PRN (18:08)
[2021-04-20] MEDS ORDERED: MAGNESIUM CITRATE 300 ML BOTTLE PO PRN (18:08)
[2021-04-20] MEDS: THIAMINE HCL 100 MG TABLET (FP) PO SCH (21:36)
[2021-04-20] MEDS: hydrOXYzine PAMOATE 25 MG CAPSULE (FP) PO SCH (21:36)
[2021-04-20] MEDS: MELATONIN 5 MG TABLETS PO SCH (21:36)
[2021-04-21] MEDS: hydrOXYzine PAMOATE 25 MG CAPSULE (FP) PO SCH ×3 (06:18→15:52)
[2021-04-21] MEDS: PRENATAL VITAMINS W/ FOLIC ACID TABLET (FP) PO SCH (10:07)
[2021-04-21] MEDS: NICOTINE 7 MG/24 HOURS TOPICAL PATCH TD SCH (10:07)
[2021-04-21] MEDS ORDERED: metFORMIN HCL 500 MG TABLET (FP) PO ONE ×2 (11:06→11:30)
[2021-04-21] MEDS: amLODIPine BESYLATE 10 MG TABLET (FP) PO SCH (12:35)
[2021-04-21] MEDS: HYDROCHLOROTHIAZIDE 12.5 MG CAPSULE (FP) PO SCH (12:35)
[2021-04-21] MEDS: THIAMINE HCL 100 MG TABLET (FP) PO SCH (21:37)
[2021-04-21] MEDS: hydrOXYzine PAMOATE 25 MG CAPSULE (FP) PO PRN (21:37)
[2021-04-21] MEDS: MELATONIN 5 MG TABLETS PO SCH (21:37)
[2021-04-21] MEDS ORDERED: MASKS NR ONE (21:37)
[2021-04-22] MEDS: metFORMIN HCL 500 MG TABLET (FP) PO SCH (06:13)
[2021-04-22] MEDS: PRENATAL VITAMINS W/ FOLIC ACID TABLET (FP) PO SCH (10:26)
[2021-04-22] MEDS: amLODIPine BESYLATE 10 MG TABLET (FP) PO SCH (10:26)
[2021-04-22] MEDS: HYDROCHLOROTHIAZIDE 12.5 MG CAPSULE (FP) PO SCH (10:26)
[2021-04-22] MEDS: hydrOXYzine PAMOATE 25 MG CAPSULE (FP) PO PRN ×4 (10:26→21:41)
[2021-04-22] MEDS: NICOTINE 7 MG/24 HOURS TOPICAL PATCH TD SCH (10:32)
[2021-04-22] MEDS ORDERED: COLLOIDAL OATMEAL 1 BAR EACH TP PRN (12:39)
[2021-04-22] MEDS: THIAMINE HCL 100 MG TABLET (FP) PO SCH (21:40)
[2021-04-22] MEDS: MELATONIN 5 MG TABLETS PO SCH (21:41)
[2021-04-23] MEDS: metFORMIN HCL 500 MG TABLET (FP) PO SCH (06:09)
[2021-04-23] MEDS: HYDROCHLOROTHIAZIDE 12.5 MG CAPSULE (FP) PO SCH (10:12)
[2021-04-23] MEDS: PRENATAL VITAMINS W/ FOLIC ACID TABLET (FP) PO SCH (10:12)
[2021-04-23] MEDS: hydrOXYzine PAMOATE 25 MG CAPSULE (FP) PO PRN ×2 (10:12→21:32)
[2021-04-23] MEDS: amLODIPine BESYLATE 10 MG TABLET (FP) PO SCH (10:12)
[2021-04-23] MEDS: NICOTINE 7 MG/24 HOURS TOPICAL PATCH TD SCH (10:13)
[2021-04-23] MEDS: IBUPROFEN 400 MG TABLET (FP) PO PRN (15:48)
[2021-04-23] MEDS: THIAMINE HCL 100 MG TABLET (FP) PO SCH (21:32)
[2021-04-23] MEDS: MELATONIN 5 MG TABLETS PO SCH (21:32)
[2021-04-24] MEDS: metFORMIN HCL 500 MG TABLET (FP) PO SCH (06:15)
[2021-04-24] MEDS: PRENATAL VITAMINS W/ FOLIC ACID TABLET (FP) PO SCH (10:31)
[2021-04-24] MEDS: hydrOXYzine PAMOATE 25 MG CAPSULE (FP) PO PRN ×3 (10:32→23:19)
[2021-04-24] MEDS: amLODIPine BESYLATE 10 MG TABLET (FP) PO SCH (10:32)
[2021-04-24] MEDS: HYDROCHLOROTHIAZIDE 12.5 MG CAPSULE (FP) PO SCH (10:32)
[2021-04-24] MEDS: NICOTINE 7 MG/24 HOURS TOPICAL PATCH TD SCH (10:32)
[2021-04-24] MEDS: IBUPROFEN 400 MG TABLET (FP) PO PRN (19:08)
[2021-04-24] MEDS: THIAMINE HCL 100 MG TABLET (FP) PO SCH (21:53)
[2021-04-24] MEDS: MELATONIN 5 MG TABLETS PO SCH (23:19)
[2021-04-25] MEDS: metFORMIN HCL 500 MG TABLET (FP) PO SCH (06:12)
[2021-04-25] MEDS: PRENATAL VITAMINS W/ FOLIC ACID TABLET (FP) PO SCH (10:19)
[2021-04-25] MEDS: HYDROCHLOROTHIAZIDE 12.5 MG CAPSULE (FP) PO SCH (10:19)
[2021-04-25] MEDS: amLODIPine BESYLATE 10 MG TABLET (FP) PO SCH (10:19)
[2021-04-25] MEDS: NICOTINE 7 MG/24 HOURS TOPICAL PATCH TD SCH (10:20)
[2021-04-25] MEDS: MELATONIN 5 MG TABLETS PO SCH (21:50)
[2021-04-25] MEDS: THIAMINE HCL 100 MG TABLET (FP) PO SCH (21:50)
[2021-04-25] MEDS: hydrOXYzine PAMOATE 25 MG CAPSULE (FP) PO PRN (21:51)
[2021-04-26] MEDS: metFORMIN HCL 500 MG TABLET (FP) PO SCH (06:32)
[2021-04-26] MEDS: PRENATAL VITAMINS W/ FOLIC ACID TABLET (FP) PO SCH (10:25)
[2021-04-26] MEDS: HYDROCHLOROTHIAZIDE 12.5 MG CAPSULE (FP) PO SCH (10:25)
[2021-04-26] MEDS: NICOTINE 7 MG/24 HOURS TOPICAL PATCH TD SCH (10:25)
[2021-04-26] MEDS: amLODIPine BESYLATE 10 MG TABLET (FP) PO SCH (10:26)
[2021-04-26] MEDS: hydrOXYzine PAMOATE 25 MG CAPSULE (FP) PO PRN (10:26)
[2021-04-26] MEDS: THIAMINE HCL 100 MG TABLET (FP) PO SCH (21:33)
[2021-04-26] MEDS: MELATONIN 5 MG TABLETS PO SCH (21:33)
[2021-04-27] MEDS: metFORMIN HCL 500 MG TABLET (FP) PO SCH (06:58)
[2021-04-27] MEDS: PRENATAL VITAMINS W/ FOLIC ACID TABLET (FP) PO SCH (10:32)
[2021-04-27] MEDS: NICOTINE 7 MG/24 HOURS TOPICAL PATCH TD SCH (10:33)
[2021-04-27] MEDS: amLODIPine BESYLATE 10 MG TABLET (FP) PO SCH (10:33)
[2021-04-27] MEDS: HYDROCHLOROTHIAZIDE 12.5 MG CAPSULE (FP) PO SCH (10:33)
[2021-04-27] MEDS: MELATONIN 5 MG TABLETS PO SCH (21:42)
[2021-04-27] MEDS: THIAMINE HCL 100 MG TABLET (FP) PO SCH (21:42)
[2021-04-28] MEDS: metFORMIN HCL 500 MG TABLET (FP) PO SCH (06:00)
[2021-04-28] MEDS: amLODIPine BESYLATE 10 MG TABLET (FP) PO SCH (10:23)
[2021-04-28] MEDS: HYDROCHLOROTHIAZIDE 12.5 MG CAPSULE (FP) PO SCH (10:23)
[2021-04-28] MEDS: PRENATAL VITAMINS W/ FOLIC ACID TABLET (FP) PO SCH (10:23)
[2021-04-28] MEDS: NICOTINE 7 MG/24 HOURS TOPICAL PATCH TD SCH (10:23)
[2021-04-28] MEDS: THIAMINE HCL 100 MG TABLET (FP) PO SCH (21:43)
[2021-04-28] MEDS: MELATONIN 5 MG TABLETS PO SCH (21:44)
[2021-04-29] MEDS: MAG HYDROX/AL HYDROX/SIMETH 30 ML UNIT-DOSE CUP PO PRN ×2 (02:47→18:44)
[2021-04-29] MEDS: metFORMIN HCL 500 MG TABLET (FP) PO SCH (06:02)
[2021-04-29] MEDS: HYDROCHLOROTHIAZIDE 12.5 MG CAPSULE (FP) PO SCH (10:15)
[2021-04-29] MEDS: PRENATAL VITAMINS W/ FOLIC ACID TABLET (FP) PO SCH (10:15)
[2021-04-29] MEDS: NICOTINE 7 MG/24 HOURS TOPICAL PATCH TD SCH (10:15)
[2021-04-29] MEDS: amLODIPine BESYLATE 10 MG TABLET (FP) PO SCH (10:15)
[2021-04-29] MEDS: THIAMINE HCL 100 MG TABLET (FP) PO SCH (21:39)
[2021-04-29] MEDS: MELATONIN 5 MG TABLETS PO SCH (21:40)
[2021-04-30] MEDS: metFORMIN HCL 500 MG TABLET (FP) PO SCH (06:21)
[2021-04-30] MEDS: amLODIPine BESYLATE 10 MG TABLET (FP) PO SCH (10:19)
[2021-04-30] MEDS: HYDROCHLOROTHIAZIDE 12.5 MG CAPSULE (FP) PO SCH (10:19)
[2021-04-30] MEDS: PRENATAL VITAMINS W/ FOLIC ACID TABLET (FP) PO SCH (10:19)
[2021-04-30] MEDS: NICOTINE 7 MG/24 HOURS TOPICAL PATCH TD SCH (10:19)
[2021-04-30] MEDS: hydrOXYzine PAMOATE 25 MG CAPSULE (FP) PO PRN (10:19)
[2021-04-30] MEDS: THIAMINE HCL 100 MG TABLET (FP) PO SCH (21:49)
[2021-04-30] MEDS: MELATONIN 5 MG TABLETS PO SCH (21:49)
[2021-05-01] MEDS: metFORMIN HCL 500 MG TABLET (FP) PO SCH (06:41)
[2021-05-01] MEDS: HYDROCHLOROTHIAZIDE 12.5 MG CAPSULE (FP) PO SCH (10:36)
[2021-05-01] MEDS: NICOTINE 7 MG/24 HOURS TOPICAL PATCH TD SCH (10:36)
[2021-05-01] MEDS: PRENATAL VITAMINS W/ FOLIC ACID TABLET (FP) PO SCH (10:36)
[2021-05-01] MEDS: amLODIPine BESYLATE 10 MG TABLET (FP) PO SCH (10:36)
[2021-05-01] MEDS: hydrOXYzine PAMOATE 25 MG CAPSULE (FP) PO PRN ×2 (10:37→21:35)
[2021-05-01] MEDS: MELATONIN 5 MG TABLETS PO SCH (21:35)
[2021-05-01] MEDS: THIAMINE HCL 100 MG TABLET (FP) PO SCH (21:35)
[2021-05-02] MEDS: metFORMIN HCL 500 MG TABLET (FP) PO SCH (06:06)
[2021-05-02 07:31] VITALS: TEMP 97.6
[2021-05-02] MEDS: HYDROCHLOROTHIAZIDE 12.5 MG CAPSULE (FP) PO SCH (09:07)
[2021-05-02] MEDS: PRENATAL VITAMINS W/ FOLIC ACID TABLET (FP) PO SCH (09:07)
[2021-05-02] MEDS: amLODIPine BESYLATE 10 MG TABLET (FP) PO SCH (09:07)
[2021-05-02] MEDS: NICOTINE 7 MG/24 HOURS TOPICAL PATCH TD SCH (09:08)
[2021-05-02 10:26] VITALS: BP 130/79; PULSE 93
== END 2021-05-02 09:25 | disposition home or self-care (01) | DRG 772 ==
LOC: YASAS 16:24 → Y5N 16:29
PROVIDERS: ADMIT Allergy & Immunology; ATTEND Allergy & Immunology
PROC: HZ42ZZZ Group Counseling for Substance Abuse Treatment, Cognitive-Behavioral (ICD-10-PCS; principal; 2021-04-20)
DX: F11.20 Opioid dependence, uncomplicated (principal); F10.20 Alcohol dependence, uncomplicated; F14.20 Cocaine dependence, uncomplicated; F12.20 Cannabis dependence, uncomplicated; F60.3 Borderline personality disorder; I10 Essential (primary) hypertension; E11.9 Type 2 diabetes mellitus without complications; Z79.84 Long term (current) use of oral hypoglycemic drugs; Z91.14 Patient's other noncompliance with medication regimen
CPT/HCPCS: 82962

== ENCOUNTER 2022-05-19 15:06 | Inpatient (IN) | payer OTHER ==
[2022-05-19 15:56] VITALS: BMI 23.6
[2022-05-19] MEDS ORDERED: BISMUTH SUBSALICYLATE 524 MG/30 ML PO PRN (17:52)
[2022-05-19] MEDS ORDERED: cloNIDine HCL 0.1 MG TABLET PO PRN (17:52)
[2022-05-19] MEDS ORDERED: MAGNESIUM HYDROX 2400MG/30ML ORAL SUSPENSION 30 ML CUP PO PRN (17:52)
[2022-05-19] MEDS ORDERED: MAGNESIUM CITRATE 300 ML BOTTLE PO PRN (17:52)
[2022-05-19] MEDS ORDERED: METHOCARBAMOL 500 MG TABLET PO PRN (17:52)
[2022-05-19] MEDS ORDERED: IBUPROFEN 600 MG TABLET (FP) PO PRN (17:52)
[2022-05-19] MEDS ORDERED: MAG HYDROX/AL HYDROX/SIMETH 30 ML UNIT-DOSE CUP PO PRN (17:52)
[2022-05-19] MEDS ORDERED: ACETAMINOPHEN 325 MG TABLET (FP) PO PRN ×2 (17:52)
[2022-05-19] MEDS ORDERED: ONDANSETRON *ODT* 4 MG TABLET SL PRN (17:52)
[2022-05-19] MEDS ORDERED: IBUPROFEN 400 MG TABLET (FP) PO PRN (17:52)
[2022-05-19] MEDS ORDERED: LOPERAMIDE HCL 2 MG CAPSULE PO PRN (17:52)
[2022-05-19] MEDS ORDERED: DICYCLOMINE HCL 10 MG CAPSULE PO PRN (17:52)
[2022-05-19] MEDS ORDERED: cloNIDine HCL 0.1 MG TABLET PO ONE (18:48)
[2022-05-19] MEDS: hydrOXYzine PAMOATE 25 MG CAPSULE (FP) PO SCH ×2 (19:08→22:57)
[2022-05-19] MEDS: NICOTINE 14 MG/24 HOURS TOPICAL PATCH TD SCH (19:10)
[2022-05-19] MEDS: MELATONIN 5 MG TABLETS PO SCH (22:56)
[2022-05-19] MEDS: THIAMINE HCL 100 MG TABLET (FP) PO SCH (22:57)
[2022-05-20] MEDS: hydrOXYzine PAMOATE 25 MG CAPSULE (FP) PO SCH ×5 (06:18→22:44)
[2022-05-20] MEDS ORDERED: methaDONE HCL 10 MG TABLET (FOR DETOX USE ONLY) PO ONE ×2 (09:30→10:00)
[2022-05-20] MEDS: amLODIPine BESYLATE 10 MG TABLET (FP) PO SCH (10:20)
[2022-05-20] MEDS: PRENATAL VITAMINS W/ FOLIC ACID TABLET (FP) PO SCH (10:20)
[2022-05-20] MEDS: HYDROCHLOROTHIAZIDE 12.5 MG CAPSULE (FP) PO SCH (10:21)
[2022-05-20] MEDS: NICOTINE 14 MG/24 HOURS TOPICAL PATCH TD SCH (10:22)
[2022-05-20] MEDS: diazePAM 5 MG TABLET PO PRN ×4 (10:23→22:44)
[2022-05-20] MEDS: cloNIDine HCL 0.1 MG TABLET PO PRN (12:41)
[2022-05-20 14:51] LABS: HEMATOCRIT 38.5 % (35.4-49); HEMOGLOBIN 12.6 GM/dL (11.7-16.9); MCH 29.2 pg (25.7-33.7); MCHC 32.8 g/dl (32.0-35.9); MEAN CELL VOLUME 89.1 fl (80-96); MEAN PLT VOLUME 7.3 fl (7.5-11.1); PLATELET COUNT 381 10^3/uL (134-434); RBC 4.32 M/mm3 (4.00-5.60); WHITE BLOOD COUNT 7.3 K/mm3 (4.0-10.0)
[2022-05-20 15:03] LABS: BLOOD UREA NITROGEN 13.9 mg/dL (7-18)
[2022-05-20 15:04] LABS: ALBUMIN 3.1 g/dl (3.4-5.0); CALCIUM 9.1 mg/dL (8.5-10.1)
[2022-05-20 15:08] LABS: BILIRUBIN,TOTAL 0.4 mg/dL (0.2-1); TOT PROT 5.8 g/dl (6.4-8.2)
[2022-05-20] MEDS: THIAMINE HCL 100 MG TABLET (FP) PO SCH (22:44)
[2022-05-20] MEDS: MELATONIN 5 MG TABLETS PO SCH (22:44)
[2022-05-21] MEDS: diazePAM 5 MG TABLET PO PRN ×2 (04:25→18:00)
[2022-05-21] MEDS: hydrOXYzine PAMOATE 25 MG CAPSULE (FP) PO SCH ×5 (06:09→22:50)
[2022-05-21] MEDS: metFORMIN HCL 500 MG TABLET (FP) PO SCH (06:10)
[2022-05-21] MEDS ORDERED: methaDONE HCL 10 MG TABLET (FOR DETOX USE ONLY) PO ONE (10:00)
[2022-05-21] MEDS: amLODIPine BESYLATE 10 MG TABLET (FP) PO SCH (10:29)
[2022-05-21] MEDS: HYDROCHLOROTHIAZIDE 12.5 MG CAPSULE (FP) PO SCH (10:29)
[2022-05-21] MEDS ORDERED: methaDONE HCL 10 MG TABLET (FOR DETOX USE ONLY) ONE (10:29)
[2022-05-21] MEDS: PRENATAL VITAMINS W/ FOLIC ACID TABLET (FP) PO SCH (10:30)
[2022-05-21] MEDS: cloNIDine HCL 0.1 MG TABLET PO PRN ×2 (10:30→19:17)
[2022-05-21] MEDS: NICOTINE 14 MG/24 HOURS TOPICAL PATCH TD SCH (10:32)
[2022-05-21] MEDS ORDERED: cloNIDine HCL 0.1 MG TABLET PO ONE (20:39)
[2022-05-21] MEDS: MELATONIN 5 MG TABLETS PO SCH (22:50)
[2022-05-21] MEDS: THIAMINE HCL 100 MG TABLET (FP) PO SCH (22:50)
[2022-05-22] MEDS: diazePAM 5 MG TABLET PO PRN ×2 (04:30→18:04)
[2022-05-22] MEDS: hydrOXYzine PAMOATE 25 MG CAPSULE (FP) PO SCH ×6 (07:25→22:39)
[2022-05-22] MEDS: metFORMIN HCL 500 MG TABLET (FP) PO SCH (07:25)
[2022-05-22] MEDS ORDERED: methaDONE HCL 10 MG TABLET (FOR DETOX USE ONLY) PO ONE (10:00)
[2022-05-22] MEDS: HYDROCHLOROTHIAZIDE 12.5 MG CAPSULE (FP) PO SCH (10:05)
[2022-05-22] MEDS: amLODIPine BESYLATE 10 MG TABLET (FP) PO SCH (10:05)
[2022-05-22] MEDS: PRENATAL VITAMINS W/ FOLIC ACID TABLET (FP) PO SCH (10:05)
[2022-05-22] MEDS: NICOTINE 14 MG/24 HOURS TOPICAL PATCH TD SCH (10:05)
[2022-05-22] MEDS: THIAMINE HCL 100 MG TABLET (FP) PO SCH ×2 (22:32→22:40)
[2022-05-22] MEDS: MELATONIN 5 MG TABLETS PO SCH ×2 (22:32→22:41)
[2022-05-23] MEDS: BENZOCAINE/MENTHOL (CHLORASEPTIC ) LOZENGE MM PRN ×2 (04:22→16:01)
[2022-05-23] MEDS: hydrOXYzine PAMOATE 25 MG CAPSULE (FP) PO SCH ×5 (04:59→22:06)
[2022-05-23] MEDS: metFORMIN HCL 500 MG TABLET (FP) PO SCH (06:25)
[2022-05-23] MEDS ORDERED: methaDONE HCL 10 MG TABLET (FOR DETOX USE ONLY) ONE (09:06)
[2022-05-23] MEDS ORDERED: methaDONE HCL 10 MG TABLET (FOR DETOX USE ONLY) PO ONE (10:00)
[2022-05-23] MEDS: HYDROCHLOROTHIAZIDE 12.5 MG CAPSULE (FP) PO SCH (10:13)
[2022-05-23] MEDS: PRENATAL VITAMINS W/ FOLIC ACID TABLET (FP) PO SCH (10:13)
[2022-05-23] MEDS: amLODIPine BESYLATE 10 MG TABLET (FP) PO SCH (10:13)
[2022-05-23] MEDS: NICOTINE 14 MG/24 HOURS TOPICAL PATCH TD SCH (10:15)
[2022-05-23] MEDS: THIAMINE HCL 100 MG TABLET (FP) PO SCH (22:06)
[2022-05-23] MEDS: MELATONIN 5 MG TABLETS PO SCH (22:06)
[2022-05-24] MEDS: hydrOXYzine PAMOATE 25 MG CAPSULE (FP) PO SCH ×3 (05:33→13:05)
[2022-05-24] MEDS: metFORMIN HCL 500 MG TABLET (FP) PO SCH (06:15)
[2022-05-24 09:29] VITALS: BP 143/85; PULSE 76; TEMP 96.9
[2022-05-24] MEDS ORDERED: methaDONE HCL 10 MG TABLET (FOR DETOX USE ONLY) PO ONE (10:00)
[2022-05-24] MEDS: amLODIPine BESYLATE 10 MG TABLET (FP) PO SCH (10:17)
[2022-05-24] MEDS: PRENATAL VITAMINS W/ FOLIC ACID TABLET (FP) PO SCH (10:17)
[2022-05-24] MEDS: HYDROCHLOROTHIAZIDE 12.5 MG CAPSULE (FP) PO SCH (10:17)
[2022-05-24] MEDS: NICOTINE 14 MG/24 HOURS TOPICAL PATCH TD SCH (10:19)
== END 2022-05-24 14:18 | disposition other institution (70) | DRG 773 ==
LOC: YASAS 15:06 → Y3N 18:16
PROVIDERS: ADMIT Allergy & Immunology; ATTEND Surgery
PROC: HZ2ZZZZ Detoxification Services for Substance Abuse Treatment (ICD-10-PCS; principal; 2022-05-19)
DX: F11.23 Opioid dependence with withdrawal (principal); F14.20 Cocaine dependence, uncomplicated; F17.210 Nicotine dependence, cigarettes, uncomplicated; F12.20 Cannabis dependence, uncomplicated; I10 Essential (primary) hypertension; E11.9 Type 2 diabetes mellitus without complications; Z79.84 Long term (current) use of oral hypoglycemic drugs; Z28.310 Unvaccinated for COVID-19
CPT/HCPCS: 36415; 80053; 82962; 85027; 86780; 93005; 93010; C9803-CS; J0735; U0003; U0005

== ENCOUNTER 2022-05-24 14:31 | Inpatient (IN) | payer OTHER ==
[2022-05-24] MEDS ORDERED: P-EPHED 60MG/TRIPROLIDI 2.5MG TABLET PO PRN (15:58)
[2022-05-24] MEDS ORDERED: IBUPROFEN 400 MG TABLET (FP) PO PRN (15:58)
[2022-05-24] MEDS ORDERED: MAGNESIUM CITRATE 300 ML BOTTLE PO PRN (15:58)
[2022-05-24] MEDS ORDERED: BENZOCAINE/MENTHOL (CHLORASEPTIC ) LOZENGE MM PRN (15:58)
[2022-05-24] MEDS ORDERED: MAG HYDROX/AL HYDROX/SIMETH 30 ML UNIT-DOSE CUP PO PRN (15:58)
[2022-05-24] MEDS ORDERED: LOPERAMIDE HCL 2 MG CAPSULE PO PRN (15:58)
[2022-05-24] MEDS ORDERED: MAGNESIUM HYDROX 2400MG/30ML ORAL SUSPENSION 30 ML CUP PO PRN (15:58)
[2022-05-24] MEDS ORDERED: guaiFENesin 200 MG/10 ML 10 ML UNIT-DOSE CUPS PO PRN (15:58)
[2022-05-24] MEDS: hydrOXYzine PAMOATE 25 MG CAPSULE (FP) PO PRN ×2 (16:55→21:26)
[2022-05-24] MEDS: THIAMINE HCL 100 MG TABLET (FP) PO SCH (21:26)
[2022-05-24] MEDS: MELATONIN 5 MG TABLETS PO SCH (21:26)
[2022-05-25] MEDS: metFORMIN HCL 500 MG TABLET (FP) PO SCH (06:26)
[2022-05-25] MEDS: amLODIPine BESYLATE 10 MG TABLET (FP) PO SCH (09:53)
[2022-05-25] MEDS: PRENATAL VITAMINS W/ FOLIC ACID TABLET (FP) PO SCH (09:53)
[2022-05-25] MEDS: HYDROCHLOROTHIAZIDE 12.5 MG CAPSULE (FP) PO SCH (09:53)
[2022-05-25] MEDS: NICOTINE 7 MG/24 HOURS TOPICAL PATCH TD SCH (10:59)
[2022-05-25] MEDS: hydrOXYzine PAMOATE 25 MG CAPSULE (FP) PO PRN ×3 (11:00→19:41)
[2022-05-25] MEDS: NICOTINE 10 MG CARTRIDGE (INHALER) IH PRN ×2 (13:04→21:32)
[2022-05-25] MEDS: MELATONIN 5 MG TABLETS PO SCH (21:32)
[2022-05-25] MEDS: THIAMINE HCL 100 MG TABLET (FP) PO SCH (21:32)
[2022-05-26] MEDS: metFORMIN HCL 500 MG TABLET (FP) PO SCH (06:33)
[2022-05-26] MEDS: hydrOXYzine PAMOATE 25 MG CAPSULE (FP) PO PRN ×3 (06:35→19:57)
[2022-05-26] MEDS ORDERED: COLLOIDAL OATMEAL 1 BAR EACH TP PRN (09:27)
[2022-05-26] MEDS ORDERED: AMMONIUM LACTATE 12% LOTION 225 GM BOTTLE TP PRN (09:31)
[2022-05-26] MEDS: PRENATAL VITAMINS W/ FOLIC ACID TABLET (FP) PO SCH (10:35)
[2022-05-26] MEDS: NICOTINE 7 MG/24 HOURS TOPICAL PATCH TD SCH (10:35)
[2022-05-26] MEDS: NICOTINE 10 MG CARTRIDGE (INHALER) IH PRN ×2 (10:35→17:39)
[2022-05-26] MEDS: amLODIPine BESYLATE 10 MG TABLET (FP) PO SCH (10:36)
[2022-05-26] MEDS: HYDROCHLOROTHIAZIDE 12.5 MG CAPSULE (FP) PO SCH (10:36)
[2022-05-26] MEDS: MELATONIN 5 MG TABLETS PO SCH (22:29)
[2022-05-26] MEDS: THIAMINE HCL 100 MG TABLET (FP) PO SCH (22:29)
[2022-05-27] MEDS: NICOTINE 10 MG CARTRIDGE (INHALER) IH PRN (06:19)
[2022-05-27] MEDS: metFORMIN HCL 500 MG TABLET (FP) PO SCH (06:21)
[2022-05-27] MEDS: hydrOXYzine PAMOATE 25 MG CAPSULE (FP) PO PRN ×2 (06:21→20:27)
[2022-05-27] MEDS: NICOTINE 7 MG/24 HOURS TOPICAL PATCH TD SCH (09:56)
[2022-05-27] MEDS: PRENATAL VITAMINS W/ FOLIC ACID TABLET (FP) PO SCH (09:58)
[2022-05-27] MEDS: amLODIPine BESYLATE 10 MG TABLET (FP) PO SCH (09:58)
[2022-05-27] MEDS: HYDROCHLOROTHIAZIDE 12.5 MG CAPSULE (FP) PO SCH (09:58)
[2022-05-27] MEDS: MELATONIN 5 MG TABLETS PO SCH (21:31)
[2022-05-27] MEDS: THIAMINE HCL 100 MG TABLET (FP) PO SCH (21:31)
[2022-05-28] MEDS: metFORMIN HCL 500 MG TABLET (FP) PO SCH (06:21)
[2022-05-28] MEDS: NICOTINE 10 MG CARTRIDGE (INHALER) IH PRN ×2 (06:22→10:21)
[2022-05-28] MEDS: hydrOXYzine PAMOATE 25 MG CAPSULE (FP) PO PRN ×3 (06:22→14:28)
[2022-05-28] MEDS: PRENATAL VITAMINS W/ FOLIC ACID TABLET (FP) PO SCH (10:20)
[2022-05-28] MEDS: NICOTINE 7 MG/24 HOURS TOPICAL PATCH TD SCH (10:20)
[2022-05-28] MEDS: amLODIPine BESYLATE 10 MG TABLET (FP) PO SCH (10:21)
[2022-05-28] MEDS: HYDROCHLOROTHIAZIDE 12.5 MG CAPSULE (FP) PO SCH (10:21)
[2022-05-28] MEDS: MELATONIN 5 MG TABLETS PO SCH (21:22)
[2022-05-28] MEDS: THIAMINE HCL 100 MG TABLET (FP) PO SCH (21:23)
[2022-05-29] MEDS: hydrOXYzine PAMOATE 25 MG CAPSULE (FP) PO PRN ×4 (00:22→22:13)
[2022-05-29] MEDS: metFORMIN HCL 500 MG TABLET (FP) PO SCH (06:33)
[2022-05-29] MEDS: NICOTINE 10 MG CARTRIDGE (INHALER) IH PRN (06:34)
[2022-05-29] MEDS: NICOTINE 7 MG/24 HOURS TOPICAL PATCH TD SCH (09:47)
[2022-05-29] MEDS: amLODIPine BESYLATE 10 MG TABLET (FP) PO SCH (09:47)
[2022-05-29] MEDS: HYDROCHLOROTHIAZIDE 12.5 MG CAPSULE (FP) PO SCH (09:47)
[2022-05-29] MEDS: PRENATAL VITAMINS W/ FOLIC ACID TABLET (FP) PO SCH (09:48)
[2022-05-29] MEDS: THIAMINE HCL 100 MG TABLET (FP) PO SCH ×2 (21:56→22:13)
[2022-05-29] MEDS: MELATONIN 5 MG TABLETS PO SCH ×2 (21:56→22:13)
[2022-05-30] MEDS: hydrOXYzine PAMOATE 25 MG CAPSULE (FP) PO PRN ×3 (06:13→21:41)
[2022-05-30] MEDS: metFORMIN HCL 500 MG TABLET (FP) PO SCH (06:13)
[2022-05-30] MEDS: NICOTINE 10 MG CARTRIDGE (INHALER) IH PRN ×2 (07:12→16:58)
[2022-05-30] MEDS: NICOTINE 7 MG/24 HOURS TOPICAL PATCH TD SCH (10:36)
[2022-05-30] MEDS: HYDROCHLOROTHIAZIDE 12.5 MG CAPSULE (FP) PO SCH (10:37)
[2022-05-30] MEDS: amLODIPine BESYLATE 10 MG TABLET (FP) PO SCH (10:37)
[2022-05-30] MEDS: PRENATAL VITAMINS W/ FOLIC ACID TABLET (FP) PO SCH (10:37)
[2022-05-30] MEDS: THIAMINE HCL 100 MG TABLET (FP) PO SCH (21:41)
[2022-05-30] MEDS: MELATONIN 5 MG TABLETS PO SCH (21:42)
[2022-05-31] MEDS: NICOTINE 10 MG CARTRIDGE (INHALER) IH PRN (06:12)
[2022-05-31] MEDS: hydrOXYzine PAMOATE 25 MG CAPSULE (FP) PO PRN ×2 (06:13→19:38)
[2022-05-31] MEDS: metFORMIN HCL 500 MG TABLET (FP) PO SCH (06:13)
[2022-05-31] MEDS: PRENATAL VITAMINS W/ FOLIC ACID TABLET (FP) PO SCH (10:22)
[2022-05-31] MEDS: NICOTINE 7 MG/24 HOURS TOPICAL PATCH TD SCH (10:22)
[2022-05-31] MEDS: amLODIPine BESYLATE 10 MG TABLET (FP) PO SCH (10:22)
[2022-05-31] MEDS: HYDROCHLOROTHIAZIDE 12.5 MG CAPSULE (FP) PO SCH (10:22)
[2022-05-31] MEDS: ACETAMINOPHEN 325 MG TABLET (FP) PO PRN ×2 (16:49→21:31)
[2022-05-31] MEDS: MELATONIN 5 MG TABLETS PO SCH (21:31)
[2022-05-31] MEDS: THIAMINE HCL 100 MG TABLET (FP) PO SCH (21:31)
[2022-06-01] MEDS: NICOTINE 10 MG CARTRIDGE (INHALER) IH PRN ×3 (06:12→18:11)
[2022-06-01] MEDS: metFORMIN HCL 500 MG TABLET (FP) PO SCH (06:12)
[2022-06-01] MEDS: hydrOXYzine PAMOATE 25 MG CAPSULE (FP) PO PRN ×2 (06:13→21:41)
[2022-06-01] MEDS: HYDROCHLOROTHIAZIDE 12.5 MG CAPSULE (FP) PO SCH (10:45)
[2022-06-01] MEDS: PRENATAL VITAMINS W/ FOLIC ACID TABLET (FP) PO SCH (10:45)
[2022-06-01] MEDS: NICOTINE 7 MG/24 HOURS TOPICAL PATCH TD SCH (10:45)
[2022-06-01] MEDS: amLODIPine BESYLATE 10 MG TABLET (FP) PO SCH (10:45)
[2022-06-01] MEDS: MELATONIN 5 MG TABLETS PO SCH (21:41)
[2022-06-01] MEDS: THIAMINE HCL 100 MG TABLET (FP) PO SCH (21:41)
[2022-06-02] MEDS: metFORMIN HCL 500 MG TABLET (FP) PO SCH (06:09)
[2022-06-02] MEDS: NICOTINE 10 MG CARTRIDGE (INHALER) IH PRN ×2 (10:11→14:19)
[2022-06-02] MEDS: amLODIPine BESYLATE 10 MG TABLET (FP) PO SCH (10:11)
[2022-06-02] MEDS: HYDROCHLOROTHIAZIDE 12.5 MG CAPSULE (FP) PO SCH (10:12)
[2022-06-02] MEDS: PRENATAL VITAMINS W/ FOLIC ACID TABLET (FP) PO SCH (10:13)
[2022-06-02] MEDS: NICOTINE 7 MG/24 HOURS TOPICAL PATCH TD SCH (10:13)
[2022-06-02] MEDS: MELATONIN 5 MG TABLETS PO SCH (22:08)
[2022-06-02] MEDS: THIAMINE HCL 100 MG TABLET (FP) PO SCH (22:08)
[2022-06-03] MEDS: metFORMIN HCL 500 MG TABLET (FP) PO SCH (06:15)
[2022-06-03] MEDS: hydrOXYzine PAMOATE 25 MG CAPSULE (FP) PO PRN ×2 (06:44→21:04)
[2022-06-03] MEDS: NICOTINE 10 MG CARTRIDGE (INHALER) IH PRN (06:44)
[2022-06-03] MEDS: amLODIPine BESYLATE 10 MG TABLET (FP) PO SCH (10:17)
[2022-06-03] MEDS: HYDROCHLOROTHIAZIDE 12.5 MG CAPSULE (FP) PO SCH (10:17)
[2022-06-03] MEDS: PRENATAL VITAMINS W/ FOLIC ACID TABLET (FP) PO SCH (10:17)
[2022-06-03] MEDS: NICOTINE 7 MG/24 HOURS TOPICAL PATCH TD SCH (10:18)
[2022-06-03] MEDS: MELATONIN 5 MG TABLETS PO SCH (21:04)
[2022-06-03] MEDS: THIAMINE HCL 100 MG TABLET (FP) PO SCH (21:04)
[2022-06-04] MEDS: metFORMIN HCL 500 MG TABLET (FP) PO SCH (06:22)
[2022-06-04] MEDS: hydrOXYzine PAMOATE 25 MG CAPSULE (FP) PO PRN ×2 (06:22→21:01)
[2022-06-04] MEDS: NICOTINE 10 MG CARTRIDGE (INHALER) IH PRN ×2 (06:53→10:08)
[2022-06-04] MEDS: amLODIPine BESYLATE 10 MG TABLET (FP) PO SCH (10:08)
[2022-06-04] MEDS: HYDROCHLOROTHIAZIDE 12.5 MG CAPSULE (FP) PO SCH (10:08)
[2022-06-04] MEDS: NICOTINE 7 MG/24 HOURS TOPICAL PATCH TD SCH (10:08)
[2022-06-04] MEDS: PRENATAL VITAMINS W/ FOLIC ACID TABLET (FP) PO SCH (10:08)
[2022-06-04] MEDS: MELATONIN 5 MG TABLETS PO SCH (21:01)
[2022-06-04] MEDS: THIAMINE HCL 100 MG TABLET (FP) PO SCH (21:01)
[2022-06-05] MEDS: metFORMIN HCL 500 MG TABLET (FP) PO SCH (06:10)
[2022-06-05] MEDS: hydrOXYzine PAMOATE 25 MG CAPSULE (FP) PO PRN ×2 (06:10→21:03)
[2022-06-05] MEDS: NICOTINE 10 MG CARTRIDGE (INHALER) IH PRN (06:10)
[2022-06-05] MEDS: amLODIPine BESYLATE 10 MG TABLET (FP) PO SCH (09:37)
[2022-06-05] MEDS: HYDROCHLOROTHIAZIDE 12.5 MG CAPSULE (FP) PO SCH (09:37)
[2022-06-05] MEDS: PRENATAL VITAMINS W/ FOLIC ACID TABLET (FP) PO SCH (09:37)
[2022-06-05] MEDS: NICOTINE 7 MG/24 HOURS TOPICAL PATCH TD SCH (11:03)
[2022-06-05] MEDS: THIAMINE HCL 100 MG TABLET (FP) PO SCH (21:02)
[2022-06-05] MEDS: MELATONIN 5 MG TABLETS PO SCH (21:02)
[2022-06-06] MEDS: metFORMIN HCL 500 MG TABLET (FP) PO SCH (06:05)
[2022-06-06] MEDS: hydrOXYzine PAMOATE 25 MG CAPSULE (FP) PO PRN ×4 (06:05→21:02)
[2022-06-06] MEDS: NICOTINE 7 MG/24 HOURS TOPICAL PATCH TD SCH (09:22)
[2022-06-06] MEDS: amLODIPine BESYLATE 10 MG TABLET (FP) PO SCH (09:22)
[2022-06-06] MEDS: PRENATAL VITAMINS W/ FOLIC ACID TABLET (FP) PO SCH (09:22)
[2022-06-06] MEDS: HYDROCHLOROTHIAZIDE 12.5 MG CAPSULE (FP) PO SCH (09:22)
[2022-06-06] MEDS: NICOTINE 10 MG CARTRIDGE (INHALER) IH PRN ×2 (09:23→21:02)
[2022-06-06 09:26] VITALS: RESP 18
[2022-06-06] MEDS: THIAMINE HCL 100 MG TABLET (FP) PO SCH (21:02)
[2022-06-06] MEDS: MELATONIN 5 MG TABLETS PO SCH (21:02)
[2022-06-07] MEDS: hydrOXYzine PAMOATE 25 MG CAPSULE (FP) PO PRN ×3 (06:06→21:05)
[2022-06-07] MEDS: metFORMIN HCL 500 MG TABLET (FP) PO SCH (06:06)
[2022-06-07] MEDS: PRENATAL VITAMINS W/ FOLIC ACID TABLET (FP) PO SCH (10:20)
[2022-06-07] MEDS: amLODIPine BESYLATE 10 MG TABLET (FP) PO SCH (10:20)
[2022-06-07] MEDS: HYDROCHLOROTHIAZIDE 12.5 MG CAPSULE (FP) PO SCH (10:20)
[2022-06-07] MEDS: NICOTINE 7 MG/24 HOURS TOPICAL PATCH TD SCH (10:21)
[2022-06-07] MEDS: NICOTINE 10 MG CARTRIDGE (INHALER) IH PRN ×2 (15:18→19:44)
[2022-06-07] MEDS: MELATONIN 5 MG TABLETS PO SCH (21:05)
[2022-06-07] MEDS: THIAMINE HCL 100 MG TABLET (FP) PO SCH (21:05)
[2022-06-08] MEDS: NICOTINE 10 MG CARTRIDGE (INHALER) IH PRN (06:02)
[2022-06-08] MEDS: metFORMIN HCL 500 MG TABLET (FP) PO SCH (06:03)
[2022-06-08 08:07] VITALS: BP 134/84; PULSE 91; TEMP 98.6
== END 2022-06-08 09:20 | disposition home or self-care (01) | DRG 772 ==
LOC: YASAS 14:31 → Y3W 14:33
PROVIDERS: ADMIT Allergy & Immunology; ATTEND Psychiatry & Neurology Pain Medicine
PROC: HZ42ZZZ Group Counseling for Substance Abuse Treatment, Cognitive-Behavioral (ICD-10-PCS; principal; 2022-05-24)
DX: F11.20 Opioid dependence, uncomplicated (principal); F14.20 Cocaine dependence, uncomplicated; F12.20 Cannabis dependence, uncomplicated; F17.210 Nicotine dependence, cigarettes, uncomplicated; I10 Essential (primary) hypertension; E11.9 Type 2 diabetes mellitus without complications; Z79.84 Long term (current) use of oral hypoglycemic drugs; L85.3 Xerosis cutis
CPT/HCPCS: 82962

== ENCOUNTER 2023-05-25 12:07 | Inpatient (IN) | payer OTHER ==
[2023-05-25 13:04] VITALS: BMI 25.8
[2023-05-25] MEDS ORDERED: guaiFENesin 600 MG TABLET.ER (FP) PO PRN (14:30)
[2023-05-25] MEDS ORDERED: BENZOCAINE/MENTHOL (CHLORASEPTIC ) LOZENGE MM PRN (14:30)
[2023-05-25] MEDS ORDERED: IBUPROFEN 400 MG TABLET (FP) PO PRN (14:30)
[2023-05-25] MEDS ORDERED: DICYCLOMINE HCL 10 MG CAPSULE PO PRN (14:30)
[2023-05-25] MEDS ORDERED: MAG HYDROX/AL HYDROX/SIMETH 30 ML UNIT-DOSE CUP PO PRN (14:30)
[2023-05-25] MEDS ORDERED: ONDANSETRON *ODT* 4 MG TABLET SL PRN (14:30)
[2023-05-25] MEDS ORDERED: LOPERAMIDE HCL 2 MG CAPSULE PO PRN (14:30)
[2023-05-25] MEDS ORDERED: ACETAMINOPHEN 325 MG TABLET (FP) PO PRN (14:30)
[2023-05-25] MEDS ORDERED: BISMUTH SUBSALICYLATE 262 MG/15 ML BTL PO PRN (14:30)
[2023-05-25] MEDS ORDERED: NALOXONE HCL (KLOXXADO) 8 MG SPRAY NS PRN (14:30)
[2023-05-25] MEDS ORDERED: NALOXONE HCL 0.4 MG/ML VIAL IM PRN (14:30)
[2023-05-25] MEDS ORDERED: POLYETHYLENE GLYCOL (HEALTHYLAX) 3350 17 GM PACKET PO PRN (14:30)
[2023-05-25] MEDS ORDERED: BENZONATATE 200 MG CAPSULE PO PRN (14:30)
[2023-05-25] MEDS ORDERED: MAGNESIUM HYDROX 2400MG/30ML ORAL SUSPENSION 30 ML CUP PO PRN (14:30)
[2023-05-25] MEDS ORDERED: IBUPROFEN 600 MG TABLET (FP) PO PRN (14:30)
[2023-05-25] MEDS ORDERED: PRENATAL VITAMINS W/ FOLIC ACID TABLET (FP) PO ONE (15:17)
[2023-05-25] MEDS: PRENATAL VITAMINS W/ FOLIC ACID TABLET (FP) PO SCH (15:31)
[2023-05-25] MEDS ORDERED: methaDONE HCL 10 MG TABLET (FOR DETOX USE ONLY) PO ONE (18:42)
[2023-05-25] MEDS ORDERED: cloNIDine HCL 0.1 MG TABLET PO PRN (18:42)
[2023-05-25] MEDS: METHOCARBAMOL 500 MG TABLET PO PRN (22:26)
[2023-05-25] MEDS: THIAMINE HCL 100 MG TABLET (FP) PO SCH (22:26)
[2023-05-25] MEDS: MELATONIN 5 MG TABLETS PO SCH (22:37)
[2023-05-26] MEDS: metFORMIN HCL 500 MG TABLET (FP) PO SCH (06:33)
[2023-05-26] MEDS: amLODIPine BESYLATE 10 MG TABLET (FP) PO SCH (10:37)
[2023-05-26] MEDS: HYDROCHLOROTHIAZIDE 12.5 MG CAPSULE (FP) PO SCH (10:37)
[2023-05-26] MEDS: PRENATAL VITAMINS W/ FOLIC ACID TABLET (FP) PO SCH (10:38)
[2023-05-26 11:47] LABS: HEMATOCRIT 34.3 % (35.4-49); HEMOGLOBIN 11.5 GM/dL (11.7-16.9); MCH 29.5 pg (25.7-33.7); MCHC 33.5 g/dl (32.0-35.9); MEAN CELL VOLUME 87.9 fl (80-96); MEAN PLT VOLUME 8.1 fl (7.5-11.1); PLATELET COUNT 212 10^3/uL (134-434); RDW 14.3 % (11.9-15.9); WHITE BLOOD COUNT 6.9 K/mm3 (4.0-10.0)
[2023-05-26 12:30] LABS: POTASSIUM 3.8 mmol/L (3.5-5.1)
[2023-05-26 12:33] LABS: CALCIUM 9.2 mg/dL (8.5-10.1)
[2023-05-26 12:36] LABS: ALBUMIN 3.4 g/dl (3.4-5.0); BLOOD UREA NITROGEN 16.6 mg/dL (7-18)
[2023-05-26 12:39] LABS: BILIRUBIN,TOTAL 0.3 mg/dL (0.2-1); TOT PROT 5.8 g/dl (6.4-8.2)
[2023-05-26] MEDS: MELATONIN 5 MG TABLETS PO SCH (21:46)
[2023-05-26] MEDS: THIAMINE HCL 100 MG TABLET (FP) PO SCH (21:47)
[2023-05-27] MEDS: metFORMIN HCL 500 MG TABLET (FP) PO SCH (06:10)
[2023-05-27] MEDS ORDERED: methaDONE HCL 10 MG TABLET (FOR DETOX USE ONLY) PO ONE (10:00)
[2023-05-27] MEDS: amLODIPine BESYLATE 10 MG TABLET (FP) PO SCH (10:31)
[2023-05-27] MEDS: HYDROCHLOROTHIAZIDE 12.5 MG CAPSULE (FP) PO SCH (10:31)
[2023-05-27] MEDS: PRENATAL VITAMINS W/ FOLIC ACID TABLET (FP) PO SCH (10:31)
[2023-05-27] MEDS: THIAMINE HCL 100 MG TABLET (FP) PO SCH (21:04)
[2023-05-27] MEDS: MELATONIN 5 MG TABLETS PO SCH (21:04)
[2023-05-27] MEDS: METHOCARBAMOL 500 MG TABLET PO PRN (21:06)
[2023-05-28] MEDS: metFORMIN HCL 500 MG TABLET (FP) PO SCH (07:07)
[2023-05-28] MEDS: amLODIPine BESYLATE 10 MG TABLET (FP) PO SCH (10:11)
[2023-05-28] MEDS: PRENATAL VITAMINS W/ FOLIC ACID TABLET (FP) PO SCH (10:11)
[2023-05-28] MEDS: HYDROCHLOROTHIAZIDE 12.5 MG CAPSULE (FP) PO SCH (10:11)
[2023-05-28] MEDS: hydrOXYzine PAMOATE 25 MG CAPSULE (FP) PO PRN (13:51)
[2023-05-28] MEDS: THIAMINE HCL 100 MG TABLET (FP) PO SCH (21:06)
[2023-05-28] MEDS: MELATONIN 5 MG TABLETS PO SCH (22:53)
[2023-05-29] MEDS: hydrOXYzine PAMOATE 25 MG CAPSULE (FP) PO PRN (05:44)
[2023-05-29] MEDS: METHOCARBAMOL 500 MG TABLET PO PRN ×2 (05:45→12:01)
[2023-05-29] MEDS: metFORMIN HCL 500 MG TABLET (FP) PO SCH (06:06)
[2023-05-29] MEDS ORDERED: methaDONE HCL 10 MG TABLET (FOR DETOX USE ONLY) PO ONE (10:00)
[2023-05-29] MEDS: PRENATAL VITAMINS W/ FOLIC ACID TABLET (FP) PO SCH (10:07)
[2023-05-29] MEDS: amLODIPine BESYLATE 10 MG TABLET (FP) PO SCH (10:07)
[2023-05-29] MEDS: HYDROCHLOROTHIAZIDE 12.5 MG CAPSULE (FP) PO SCH (10:07)
[2023-05-29] MEDS: THIAMINE HCL 100 MG TABLET (FP) PO SCH (20:59)
[2023-05-29] MEDS: MELATONIN 5 MG TABLETS PO SCH (20:59)
[2023-05-30] MEDS: metFORMIN HCL 500 MG TABLET (FP) PO SCH (06:07)
[2023-05-30 09:09] VITALS: BP 142/95; PULSE 82; RESP 18; TEMP 97.3
[2023-05-30] MEDS: PRENATAL VITAMINS W/ FOLIC ACID TABLET (FP) PO SCH (09:26)
[2023-05-30] MEDS: amLODIPine BESYLATE 10 MG TABLET (FP) PO SCH (09:27)
[2023-05-30] MEDS: HYDROCHLOROTHIAZIDE 12.5 MG CAPSULE (FP) PO SCH (09:27)
== END 2023-05-30 12:33 | disposition other institution (70) | DRG 773 ==
LOC: YASAS 12:07 → Y3N 15:08
PROVIDERS: ADMIT Allergy & Immunology; ATTEND Surgery
PROC: HZ2ZZZZ Detoxification Services for Substance Abuse Treatment (ICD-10-PCS; principal; 2023-05-25)
DX: F11.23 Opioid dependence with withdrawal (principal); F14.20 Cocaine dependence, uncomplicated; F12.20 Cannabis dependence, uncomplicated; F17.210 Nicotine dependence, cigarettes, uncomplicated; F60.3 Borderline personality disorder; I10 Essential (primary) hypertension; E78.5 Hyperlipidemia, unspecified; E11.9 Type 2 diabetes mellitus without complications; Z79.84 Long term (current) use of oral hypoglycemic drugs; Z28.310 Unvaccinated for COVID-19; Z28.9 Immunization not carried out for unspecified reason
CPT/HCPCS: 36415; 80053; 82962; 85027; 86780; 87635; 87811

== ENCOUNTER 2023-05-30 12:37 | Inpatient (IN) | payer OTHER ==
[2023-05-30] MEDS ORDERED: guaiFENesin 600 MG TABLET.ER (FP) PO PRN (13:06)
[2023-05-30] MEDS ORDERED: MAGNESIUM HYDROX 2400MG/30ML ORAL SUSPENSION 30 ML CUP PO PRN (13:06)
[2023-05-30] MEDS ORDERED: BENZOCAINE/MENTHOL (CHLORASEPTIC ) LOZENGE MM PRN (13:06)
[2023-05-30] MEDS ORDERED: POLYETHYLENE GLYCOL (HEALTHYLAX) 3350 17 GM PACKET PO PRN (13:06)
[2023-05-30] MEDS ORDERED: MAG HYDROX/AL HYDROX/SIMETH 30 ML UNIT-DOSE CUP PO PRN (13:06)
[2023-05-30] MEDS ORDERED: NALOXONE HCL (KLOXXADO) 8 MG SPRAY NS PRN (13:06)
[2023-05-30] MEDS ORDERED: BENZONATATE 200 MG CAPSULE PO PRN (13:06)
[2023-05-30] MEDS ORDERED: NICOTINE 10 MG CARTRIDGE (INHALER) IH PRN (13:06)
[2023-05-30] MEDS ORDERED: ACETAMINOPHEN 325 MG TABLET (FP) PO PRN (13:06)
[2023-05-30] MEDS ORDERED: LOPERAMIDE HCL 2 MG CAPSULE PO PRN (13:06)
[2023-05-30] MEDS ORDERED: NALOXONE HCL 0.4 MG/ML VIAL IVPUSH PRN (13:06)
[2023-05-30] MEDS ORDERED: IBUPROFEN 400 MG TABLET (FP) PO PRN (13:06)
[2023-05-30] MEDS ORDERED: AMMONIUM LACTATE 12% LOTION 225 GM BOTTLE TP PRN (13:06)
[2023-05-30] MEDS ORDERED: IBUPROFEN 600 MG TABLET (FP) PO PRN (13:06)
[2023-05-30] MEDS: cloNIDine HCL 0.1 MG TABLET PO PRN (14:01)
[2023-05-30] MEDS: THIAMINE HCL 100 MG TABLET (FP) PO SCH (21:28)
[2023-05-30] MEDS: MELATONIN 5 MG TABLETS PO SCH (21:28)
[2023-05-31] MEDS ORDERED: metFORMIN HCL 500 MG TABLET (FP) PO SCH (10:00)
[2023-05-31] MEDS ORDERED: HYDROCHLOROTHIAZIDE 12.5 MG CAPSULE (FP) PO SCH (10:00)
[2023-05-31] MEDS: PRENATAL VITAMINS W/ FOLIC ACID TABLET (FP) PO SCH (10:01)
[2023-05-31] MEDS: amLODIPine BESYLATE 10 MG TABLET (FP) PO SCH (10:01)
[2023-05-31] MEDS: HYDROCHLOROTHIAZIDE 25 MG TABLET (FP) PO SCH (10:01)
[2023-05-31] MEDS: MELATONIN 5 MG TABLETS PO SCH (21:20)
[2023-05-31] MEDS: hydrOXYzine PAMOATE 25 MG CAPSULE (FP) PO PRN (21:21)
[2023-05-31] MEDS: THIAMINE HCL 100 MG TABLET (FP) PO SCH (21:21)
[2023-06-01] MEDS: metFORMIN HCL 500 MG TABLET (FP) PO SCH (06:36)
[2023-06-01] MEDS: amLODIPine BESYLATE 10 MG TABLET (FP) PO SCH (09:59)
[2023-06-01] MEDS: HYDROCHLOROTHIAZIDE 25 MG TABLET (FP) PO SCH (09:59)
[2023-06-01] MEDS: PRENATAL VITAMINS W/ FOLIC ACID TABLET (FP) PO SCH (09:59)
[2023-06-01] MEDS: MELATONIN 5 MG TABLETS PO SCH (22:48)
[2023-06-01] MEDS: THIAMINE HCL 100 MG TABLET (FP) PO SCH (22:48)
[2023-06-02] MEDS: metFORMIN HCL 500 MG TABLET (FP) PO SCH (06:02)
[2023-06-02] MEDS: PRENATAL VITAMINS W/ FOLIC ACID TABLET (FP) PO SCH (10:41)
[2023-06-02] MEDS: amLODIPine BESYLATE 10 MG TABLET (FP) PO SCH (10:41)
[2023-06-02] MEDS: HYDROCHLOROTHIAZIDE 25 MG TABLET (FP) PO SCH (10:41)
[2023-06-02] MEDS: MELATONIN 5 MG TABLETS PO SCH (21:46)
[2023-06-02] MEDS: THIAMINE HCL 100 MG TABLET (FP) PO SCH (21:46)
[2023-06-02] MEDS: METHOCARBAMOL 500 MG TABLET PO PRN (21:49)
[2023-06-03] MEDS: metFORMIN HCL 500 MG TABLET (FP) PO SCH (06:17)
[2023-06-03] MEDS: cloNIDine HCL 0.1 MG TABLET PO PRN (06:26)
[2023-06-03] MEDS: HYDROCHLOROTHIAZIDE 25 MG TABLET (FP) PO SCH (09:59)
[2023-06-03] MEDS: amLODIPine BESYLATE 10 MG TABLET (FP) PO SCH (09:59)
[2023-06-03] MEDS: PRENATAL VITAMINS W/ FOLIC ACID TABLET (FP) PO SCH (09:59)
[2023-06-03] MEDS: MELATONIN 5 MG TABLETS PO SCH (21:26)
[2023-06-03] MEDS: THIAMINE HCL 100 MG TABLET (FP) PO SCH (21:27)
[2023-06-03] MEDS: METHOCARBAMOL 500 MG TABLET PO PRN (21:27)
[2023-06-04] MEDS: metFORMIN HCL 500 MG TABLET (FP) PO SCH (06:23)
[2023-06-04] MEDS: PRENATAL VITAMINS W/ FOLIC ACID TABLET (FP) PO SCH (09:02)
[2023-06-04] MEDS: amLODIPine BESYLATE 10 MG TABLET (FP) PO SCH (09:03)
[2023-06-04] MEDS: HYDROCHLOROTHIAZIDE 25 MG TABLET (FP) PO SCH (09:03)
[2023-06-04] MEDS: THIAMINE HCL 100 MG TABLET (FP) PO SCH (21:27)
[2023-06-04] MEDS: MELATONIN 5 MG TABLETS PO SCH (21:27)
[2023-06-04] MEDS: METHOCARBAMOL 500 MG TABLET PO PRN (21:27)
[2023-06-05] MEDS: metFORMIN HCL 500 MG TABLET (FP) PO SCH (06:15)
[2023-06-05] MEDS: amLODIPine BESYLATE 10 MG TABLET (FP) PO SCH (10:25)
[2023-06-05] MEDS: PRENATAL VITAMINS W/ FOLIC ACID TABLET (FP) PO SCH (10:25)
[2023-06-05] MEDS: HYDROCHLOROTHIAZIDE 25 MG TABLET (FP) PO SCH (10:25)
[2023-06-05] MEDS: MELATONIN 5 MG TABLETS PO SCH (21:56)
[2023-06-05] MEDS: THIAMINE HCL 100 MG TABLET (FP) PO SCH (21:56)
[2023-06-05] MEDS: hydrOXYzine PAMOATE 25 MG CAPSULE (FP) PO PRN (21:57)
[2023-06-06] MEDS: metFORMIN HCL 500 MG TABLET (FP) PO SCH (06:21)
[2023-06-06] MEDS: COLLOIDAL OATMEAL 1 BAR EACH TP PRN (06:32)
[2023-06-06] MEDS: amLODIPine BESYLATE 10 MG TABLET (FP) PO SCH (09:37)
[2023-06-06] MEDS: PRENATAL VITAMINS W/ FOLIC ACID TABLET (FP) PO SCH (09:37)
[2023-06-06] MEDS: HYDROCHLOROTHIAZIDE 25 MG TABLET (FP) PO SCH (09:37)
[2023-06-06] MEDS: THIAMINE HCL 100 MG TABLET (FP) PO SCH (21:52)
[2023-06-06] MEDS: MELATONIN 5 MG TABLETS PO SCH (21:52)
[2023-06-07] MEDS: metFORMIN HCL 500 MG TABLET (FP) PO SCH (06:06)
[2023-06-07] MEDS: amLODIPine BESYLATE 10 MG TABLET (FP) PO SCH (10:04)
[2023-06-07] MEDS: PRENATAL VITAMINS W/ FOLIC ACID TABLET (FP) PO SCH (10:04)
[2023-06-07] MEDS: HYDROCHLOROTHIAZIDE 25 MG TABLET (FP) PO SCH (10:04)
[2023-06-07] MEDS: THIAMINE HCL 100 MG TABLET (FP) PO SCH (21:30)
[2023-06-07] MEDS: cloNIDine HCL 0.1 MG TABLET PO PRN (21:30)
[2023-06-07] MEDS: MELATONIN 5 MG TABLETS PO SCH (21:30)
[2023-06-08] MEDS: metFORMIN HCL 500 MG TABLET (FP) PO SCH (06:32)
[2023-06-08] MEDS: HYDROCHLOROTHIAZIDE 25 MG TABLET (FP) PO SCH (09:30)
[2023-06-08] MEDS: PRENATAL VITAMINS W/ FOLIC ACID TABLET (FP) PO SCH (09:30)
[2023-06-08] MEDS: amLODIPine BESYLATE 10 MG TABLET (FP) PO SCH (09:30)
[2023-06-08] MEDS: hydrOXYzine PAMOATE 25 MG CAPSULE (FP) PO PRN ×2 (13:36→21:35)
[2023-06-08] MEDS: MELATONIN 5 MG TABLETS PO SCH (21:35)
[2023-06-08] MEDS: THIAMINE HCL 100 MG TABLET (FP) PO SCH (21:35)
[2023-06-09] MEDS: metFORMIN HCL 500 MG TABLET (FP) PO SCH (06:03)
[2023-06-09 06:55] VITALS: RESP 18
[2023-06-09] MEDS: PRENATAL VITAMINS W/ FOLIC ACID TABLET (FP) PO SCH (09:45)
[2023-06-09] MEDS: HYDROCHLOROTHIAZIDE 25 MG TABLET (FP) PO SCH (09:45)
[2023-06-09] MEDS: amLODIPine BESYLATE 10 MG TABLET (FP) PO SCH (09:45)
[2023-06-09] MEDS: MELATONIN 5 MG TABLETS PO SCH (21:27)
[2023-06-09] MEDS: hydrOXYzine PAMOATE 25 MG CAPSULE (FP) PO PRN (21:27)
[2023-06-09] MEDS: THIAMINE HCL 100 MG TABLET (FP) PO SCH (23:49)
[2023-06-10] MEDS: metFORMIN HCL 500 MG TABLET (FP) PO SCH (06:06)
[2023-06-10] MEDS: HYDROCHLOROTHIAZIDE 25 MG TABLET (FP) PO SCH (09:48)
[2023-06-10] MEDS: amLODIPine BESYLATE 10 MG TABLET (FP) PO SCH (09:48)
[2023-06-10] MEDS: PRENATAL VITAMINS W/ FOLIC ACID TABLET (FP) PO SCH (09:48)
[2023-06-10] MEDS: hydrOXYzine PAMOATE 25 MG CAPSULE (FP) PO PRN (21:29)
[2023-06-10] MEDS: MELATONIN 5 MG TABLETS PO SCH (21:29)
[2023-06-10] MEDS: THIAMINE HCL 100 MG TABLET (FP) PO SCH (21:29)
[2023-06-11] MEDS: metFORMIN HCL 500 MG TABLET (FP) PO SCH (06:26)
[2023-06-11] MEDS: HYDROCHLOROTHIAZIDE 25 MG TABLET (FP) PO SCH (09:56)
[2023-06-11] MEDS: amLODIPine BESYLATE 10 MG TABLET (FP) PO SCH (09:56)
[2023-06-11] MEDS: PRENATAL VITAMINS W/ FOLIC ACID TABLET (FP) PO SCH (09:56)
[2023-06-11] MEDS: hydrOXYzine PAMOATE 25 MG CAPSULE (FP) PO PRN ×2 (12:09→21:25)
[2023-06-11] MEDS: MELATONIN 5 MG TABLETS PO SCH (21:25)
[2023-06-11] MEDS: THIAMINE HCL 100 MG TABLET (FP) PO SCH (21:25)
[2023-06-12] MEDS: metFORMIN HCL 500 MG TABLET (FP) PO SCH (06:50)
[2023-06-12] MEDS: HYDROCHLOROTHIAZIDE 25 MG TABLET (FP) PO SCH (09:44)
[2023-06-12] MEDS: PRENATAL VITAMINS W/ FOLIC ACID TABLET (FP) PO SCH (09:44)
[2023-06-12] MEDS: amLODIPine BESYLATE 10 MG TABLET (FP) PO SCH (09:44)
[2023-06-12] MEDS: MELATONIN 5 MG TABLETS PO SCH (21:01)
[2023-06-12] MEDS: THIAMINE HCL 100 MG TABLET (FP) PO SCH (21:01)
[2023-06-12] MEDS: hydrOXYzine PAMOATE 25 MG CAPSULE (FP) PO PRN (21:01)
[2023-06-13] MEDS: metFORMIN HCL 500 MG TABLET (FP) PO SCH (06:23)
[2023-06-13] MEDS: COLLOIDAL OATMEAL 1 BAR EACH TP PRN (06:50)
[2023-06-13] MEDS: PRENATAL VITAMINS W/ FOLIC ACID TABLET (FP) PO SCH (09:35)
[2023-06-13] MEDS: amLODIPine BESYLATE 10 MG TABLET (FP) PO SCH (09:35)
[2023-06-13] MEDS: HYDROCHLOROTHIAZIDE 25 MG TABLET (FP) PO SCH (09:35)
[2023-06-13] MEDS: MELATONIN 5 MG TABLETS PO SCH (21:15)
[2023-06-13] MEDS: THIAMINE HCL 100 MG TABLET (FP) PO SCH (21:15)
[2023-06-13] MEDS: hydrOXYzine PAMOATE 25 MG CAPSULE (FP) PO PRN (21:15)
[2023-06-14] MEDS: metFORMIN HCL 500 MG TABLET (FP) PO SCH (06:10)
[2023-06-14 07:08] VITALS: TEMP 97.3
[2023-06-14] MEDS: amLODIPine BESYLATE 10 MG TABLET (FP) PO SCH (09:03)
[2023-06-14] MEDS: PRENATAL VITAMINS W/ FOLIC ACID TABLET (FP) PO SCH (09:03)
[2023-06-14] MEDS: HYDROCHLOROTHIAZIDE 25 MG TABLET (FP) PO SCH (09:03)
[2023-06-14 10:24] VITALS: BP 150/86; PULSE 90
== END 2023-06-14 09:10 | disposition home or self-care (01) | DRG 772 ==
LOC: YASAS 12:37 → Y5N 12:38
PROVIDERS: ADMIT Allergy & Immunology; ATTEND Psychiatry & Neurology Pain Medicine
PROC: HZ42ZZZ Group Counseling for Substance Abuse Treatment, Cognitive-Behavioral (ICD-10-PCS; principal; 2023-05-30)
DX: F10.20 Alcohol dependence, uncomplicated (principal); F11.20 Opioid dependence, uncomplicated; F12.20 Cannabis dependence, uncomplicated; F14.20 Cocaine dependence, uncomplicated; F17.210 Nicotine dependence, cigarettes, uncomplicated; F60.3 Borderline personality disorder; I10 Essential (primary) hypertension; E78.5 Hyperlipidemia, unspecified; E11.9 Type 2 diabetes mellitus without complications; Z79.84 Long term (current) use of oral hypoglycemic drugs
CPT/HCPCS: 36415; 82962; 86803

== ENCOUNTER 2023-12-24 10:47 | Inpatient (IN) | payer OTHER ==
[2023-12-24 11:25] VITALS: BMI 23.8
[2023-12-24] MEDS ORDERED: BISMUTH SUBSALICYLATE 262 MG/15 ML BTL PO PRN (12:37)
[2023-12-24] MEDS ORDERED: MAGNESIUM HYDROX 2400MG/30ML ORAL SUSPENSION 30 ML CUP PO PRN (12:37)
[2023-12-24] MEDS ORDERED: MAG HYDROX/AL HYDROX/SIMETH 30 ML UNIT-DOSE CUP PO PRN (12:37)
[2023-12-24] MEDS ORDERED: BENZONATATE 200 MG CAPSULE PO PRN (12:37)
[2023-12-24] MEDS ORDERED: LOPERAMIDE HCL 2 MG CAPSULE PO PRN (12:37)
[2023-12-24] MEDS ORDERED: ONDANSETRON *ODT* 4 MG TABLET SL PRN (12:37)
[2023-12-24] MEDS ORDERED: guaiFENesin 600 MG TABLET.ER (FP) PO PRN (12:37)
[2023-12-24] MEDS ORDERED: METHOCARBAMOL 500 MG TABLET PO PRN (12:37)
[2023-12-24] MEDS ORDERED: NICOTINE POLACRILEX 4 MG GUM BUC PRN (12:37)
[2023-12-24] MEDS ORDERED: NALOXONE HCL (KLOXXADO) 8 MG SPRAY NS PRN (12:37)
[2023-12-24] MEDS ORDERED: NALOXONE HCL 0.4 MG/ML VIAL IM PRN (12:37)
[2023-12-24] MEDS ORDERED: ACETAMINOPHEN 325 MG TABLET (FP) PO PRN (12:37)
[2023-12-24] MEDS ORDERED: BENZOCAINE/MENTHOL (CHLORASEPTIC ) LOZENGE MM PRN (12:37)
[2023-12-24] MEDS ORDERED: hydrOXYzine PAMOATE 25 MG CAPSULE (FP) PO PRN (12:37)
[2023-12-24] MEDS ORDERED: DICYCLOMINE HCL 10 MG CAPSULE PO PRN (12:37)
[2023-12-24] MEDS ORDERED: POLYETHYLENE GLYCOL (HEALTHYLAX) 3350 17 GM PACKET PO PRN (12:37)
[2023-12-24] MEDS: PRENATAL VITAMINS W/ FOLIC ACID TABLET (FP) PO SCH (13:12)
[2023-12-24] MEDS: methaDONE HCL 10 MG TABLET (FOR DETOX USE ONLY) PO ONE (16:23)
[2023-12-24] MEDS: ASPIRIN 81 MG CHEWABLE TABLETS PO SCH (16:58)
[2023-12-24] MEDS: cloNIDine HCL 0.1 MG TABLET PO PRN (22:49)
[2023-12-24] MEDS: IBUPROFEN 600 MG TABLET (FP) PO PRN (22:49)
[2023-12-24] MEDS: THIAMINE HCL 100 MG TABLET (FP) PO SCH (22:49)
[2023-12-24] MEDS: MELATONIN 5 MG TABLETS PO SCH (22:49)
[2023-12-25] MEDS: metFORMIN HCL 500 MG TABLET (FP) PO SCH (06:01)
[2023-12-25] MEDS: amLODIPine BESYLATE 10 MG TABLET (FP) PO SCH (10:26)
[2023-12-25] MEDS: HYDROCHLOROTHIAZIDE 12.5 MG CAPSULE (FP) PO SCH (10:26)
[2023-12-25 13:45] LABS: HEMATOCRIT 35.2 % (35.4-49); HEMOGLOBIN 11.6 GM/dL (11.7-16.9); MCH 29.8 pg (25.7-33.7); MCHC 33.1 g/dl (32.0-35.9); MEAN CELL VOLUME 90.1 fl (80-96); MEAN PLT VOLUME 7.1 fl (7.5-11.1); PLATELET COUNT 409 10^3/uL (134-434); RBC 3.91 M/mm3 (4.00-5.60); RDW 14.6 % (11.9-15.9); WHITE BLOOD COUNT 5.4 K/mm3 (4.0-10.0)
[2023-12-25 14:02] LABS: POTASSIUM 4.6 mmol/L (3.5-5.1)
[2023-12-25 14:05] LABS: CALCIUM 8.6 mg/dL (8.5-10.1)
[2023-12-25 14:09] LABS: CREATININE 0.9 mg/dL (0.55-1.3)
[2023-12-25 14:10] LABS: BILIRUBIN,TOTAL 0.3 mg/dL (0.2-1); TOT PROT 5.6 g/dl (6.4-8.2)
[2023-12-26] MEDS: methaDONE HCL 10 MG TABLET (FOR DETOX USE ONLY) PO ONE (09:43)
[2023-12-26] MEDS: METHOCARBAMOL 500 MG TABLET PO PRN (09:44)
[2023-12-27] MEDS: IBUPROFEN 400 MG TABLET (FP) PO PRN (20:08)
[2023-12-28] MEDS: methaDONE HCL 10 MG TABLET (FOR DETOX USE ONLY) PO ONE (10:13)
[2023-12-29 09:05] VITALS: BP 151/83; PULSE 77; RESP 18; TEMP 98.6
== END 2023-12-29 10:47 | disposition home or self-care (01) | DRG 773 ==
LOC: YASAS 10:47 → Y3N 13:27
PROVIDERS: ADMIT Allergy & Immunology; ATTEND Surgery
PROC: HZ2ZZZZ Detoxification Services for Substance Abuse Treatment (ICD-10-PCS; principal; 2023-12-24)
DX: F11.23 Opioid dependence with withdrawal (principal); F14.20 Cocaine dependence, uncomplicated; F16.20 Hallucinogen dependence, uncomplicated; F12.20 Cannabis dependence, uncomplicated; F17.210 Nicotine dependence, cigarettes, uncomplicated; F60.3 Borderline personality disorder; D64.9 Anemia, unspecified; I10 Essential (primary) hypertension; E11.65 Type 2 diabetes mellitus with hyperglycemia; Z79.84 Long term (current) use of oral hypoglycemic drugs; M20.002 Unspecified deformity of left finger(s); Z28.310 Unvaccinated for COVID-19; Z28.9 Immunization not carried out for unspecified reason
CPT/HCPCS: 36415; 80053; 82962; 85027; 86780; 87635; 93005; 93010

== ENCOUNTER 2023-12-27 11:33 | Emergency (ER) | payer OTHER ==
[2023-12-27 12:07] VITALS: BP 144/92; PULSE 113; RESP 18; TEMP 98.6; BMI 25.1
== END 2023-12-27 16:07 | disposition home or self-care (01) ==
LOC: JER 11:33
PROC: 2W3DX1Z Immobilization of Left Lower Arm using Splint (ICD-10-PCS; principal; 2023-12-27)
DX: S53.32XA Traumatic rupture of left ulnar collateral ligament, initial encounter (principal); X58.XXXA Exposure to other specified factors, initial encounter
CPT/HCPCS: 73130-TC-LT-FY; 99283-25